=== PATIENT | male | born 1940 | race Caucasian/White ===

== ENCOUNTER → 2016-11-11 | Outpatient (CLI) | payer MEDICARE, MEDICAID ==
[~2016-11-11] MED LIST: ASPI-781 PO; ATOR10TA65 PO; DULR PR; Docusate Sodium/Ferrous Fumar PO; OMEG-135 PO; PANT40TA4 PO; URE25 PO; VITBC PO; ZOLP5TAB PO
--- NOTE | 2016-11-11 15:30 | RADRPT ---
PROCEDURE: XR right knee. CLINICAL INDICATION: Knee pain. TECHNIQUE: Three views are available for review. COMPARISON: 05/28/2015 FINDINGS: There is a constrained total knee replacement. There is no evidence of loosening of the prosthesis. There is diffuse osteopenia. No acute fracture or dislocation is seen.No osseous lesions are identif ied. The soft tissues are unremarkable . IMPRESSION: Diffuse osteopenia Unremarkable constrained total knee replacement. RPTAT: HGDB .Sampson Chappell MD, MD Date Time Electronically viewed and signed by .Sampson Chappell MD, MD on 11/11/2016 15:30 .B/
--- NOTE | 2016-11-11 21:49 | HKNOTE ---
DATE OF SERVICE: 11/11/2016 MAIN COMPLAINT: Continuing problems with the right total knee replacement. HISTORY OF MAIN COMPLAINT: The patient had a right total knee replacement, which was performed by luciano cardoza in 01/2015. The knee felt fairly good at first, but subsequently he developed symptoms that he redmond s been complaining about constantly. His present complaints are that the knee has pain on walking. The knee feels unstable at times whil e walking. This mostly occurs while getting out of a chair, getting out of a car, or going up or do wn stairs. He has no pain when he is walking. PHYSICAL EXAMINATION: GENERAL: A fit looking 76-year-old male. VITAL SIGNS: Height 6 feet 2 inches, weight 260 pounds, blood pressure 110/65, temperature 98.7. EXTREMITIES: On examination of the right knee, no external signs of infection or inflammation. The knee feels somewhat unstable, both on testing the medial and lateral collateral ligaments, but pratima cially on performing the drawer test, to test the AP stability. The knee shows marked instability on putting it through these various tests. IMAGING: Plain x-rays of the right knee obtained today at the [facility] were rev iewed. These show an absolutely perfect total knee replacement. All components are well attached t o the bone and well aligned. The patellar thickness is excellent. Patellar tracking is 100%. All components are well attached to the bone. DISCUSSION: Patient is advised that I believe the ligaments in his knee are stretched out. I showe d him on a model of the knee, that he will need to have a thicker spacer inserted in order to stabil ize the knee. I did note that examination of the knee already reveals that the knee lacks perhaps 1 0 degrees of extension, and he was warned that he may lose further extension of the knee. He will b e put in a thicker spacer. Patient is agreeable to doing the surgery, despite the possible lack of extension after surgery. My assistant construction superintendent, Carlos, spoke with him a considerable length today, and will schedule his surgery to be performed in the near future. Dictated By: CHENTE POLANCO/SOCORRO Conf#: [id number] DID#: [id number]
== END | disposition home or self-care (01) ==
LOC: HKI 14:51
DX: Z47.1 Aftercare following joint replacement surgery (principal); Z96.651 Presence of right artificial knee joint
CPT/HCPCS: 73562; G0463

== ENCOUNTER → 2017-01-12 | Outpatient (CLI) | payer MEDICARE, MEDICAID ==
[~2017-01-12] MED LIST changes: +BETH25TA39 PO; +BISA10SU75 PR; -DULR PR; +METO10TA96 PO; +OMEP20CA16 PO; -URE25 PO
--- NOTE | 2017-01-12 18:12 | HKNOTE ---
DATE OF SERVICE: 01/12/2017 The patient comes for preoperative evaluation. He is scheduled to have a revision of the right knee tibial insert on 01/13/2017. He has been cleared for surgery by Dr. Martin Rodriguez. Numerous questi ons were asked and answered. He has not given any blood for autotransfusion and understands the ris ks associated with using hospital blood. He is agreeable to using hospital blood if needed. He was given prescriptions for his postoperative pain management. Numerous questions were asked and answe red. There is no guarantee that this procedure will cure his problem, but to the best of my orthope dic knowledge and orthopedic experience, I do believe that this may solve his problem. Dictated By: CHENTE POLANCO/SOCORRO Conf#: [id number] DID#: [id number]
== END | disposition home or self-care (01) ==
LOC: HKI 13:10
DX: M25.561 Pain in right knee (principal); T84.89XA Other specified complication of internal orthopedic prosthetic devices, implants and grafts, initial encounter; Z96.651 Presence of right artificial knee joint
CPT/HCPCS: G0463

== ENCOUNTER 2017-01-13 05:28 | Inpatient (IN) | payer MEDICARE, OTHER ==
--- NOTE | 2017-01-12 12:52 | PREOPHP ---
DATE OF ADMISSION: 01/12/2017 Scheduled day of surgery is 01/13/[address] Sam Khoury. Dear Dr. Khoury: Thank you very much for allowing me to continue in the care of Mr. Cole. HISTORY OF PRESENT ILLNESS: He is a 76-year-old right-handed male status post rig ht total knee replacement who is coming in for revision of the pad in the knee replacement. Please note I am modestly handicapped by not having specifics from your office. PAST MEDICAL HISTORY: 1. Hypogonadism. 2. Gastroesophageal reflux disease. 3. Obesity. 4. Organic heart disease -- coronary artery disease -- status post PCI in 1992. 5. Lumbar disk disease with sciatica. 6. Tic douloureux. 7. Positive DANIELLE. 8. Obstructive sleep apnea. 9. History of Phuong's gangrene. 10. Status post penile prosthesis with subsequent debridement. 11. Status post urethroplasty. 12. Diverticulosis coli. 13. Internal hemorrhoids. 14. Vitreous separation. 15. Decreased hearing on the left. 16. Status post CE and IOL, right eye, 11/12/2016. 17. Status post right knee arthroscopy. 18. Status post CE and IOL, left eye. 19. Status post right inguinal hernia repair. 20. Status post right total knee replacement January 2015. ALLERGIES: HE HAS NO KNOWN MEDICAL ALLERGIES, BUT HE IS INTOLERANT OF STATINS WHICH INDUCE MYALGIAS . CURRENT MEDICATIONS: 1. Testosterone 200 mg every 3 weeks. 2. Reglan (metoclopramide) 10 mg t.i.d. 3. Omeprazole 40 mg every morning. 4. Simvastatin 10 mg daily. 5. Lipo-Flavonoid daily. 6. Fish oil 1 g daily. HABITS: He is a nonsmoker, no alcohol, no caffeine, no recreational drugs. VACCINES: He had tetanus and pneumococcal vaccine 08/08/2013. SOCIAL HISTORY: He was born in [place] and raised here. He is a [employer] and is [facility] eligible. He is and lives with his spouse. He is recently retired. FAMILY HISTORY: Positive for coronary artery disease, negative for diabetes mellitus type 2, positi ve for hypertension, positive for stroke. Negative for asthma, negative for glaucoma, negative for migraine, negative for colon cancer, negative for prostate cancer, negative for anesthesia reactions . REVIEW OF SYSTEMS: HEAD AND EYES: Fully negative. ENT: Negative. RESPIRATORY: Negative. CARDIAC: Negative. GASTROINTESTINAL: Negative. He had a negative colonoscopy 07/11/2009 and negative serologies for h epatitis B and C 10/15/2006. HEMATOLOGIC: Negative. UROLOGIC: Negative. NEUROLOGIC: Negative. MUSCULOSKELETAL: As per the dictation of Dr. Khoury. GENERAL: Without note. PHYSICAL EXAMINATION: VITAL SIGNS: At the time of physical exam, he has a height of 5 feet 11 inches, weight 233, blood p ressure 130/70, pulse 96, temperature is 98.6, respirations 16. HEENT: NC/AT. PERRL, EOMI, anicteric, fundi are without note. Tympanic membranes are without note . Oropharynx demonstrates no lesions. NECK: Supple. There is a midline trachea. There is no thyromegaly. Pulses are 2+ without bruits. RESPIRATORY: Clear to auscultation and percussion. CARDIAC: Demonstrates no JVD, regular rate and rhythm without rubs, murmurs, or gallops. ABDOMEN: Soft, nontender, active bowel sounds, no hepatosplenomegaly, no CVA tenderness, no hernias , no bruits. EXTREMITIES: Demonstrate no clubbing, cyanosis, or edema. Please see Dr. Khoury's dictation fo r the exam of the knee. NEUROLOGIC: Nonfocal. LABORATORY DATA: Sodium 140, potassium 3.6, chloride 103, bicarbonate 30, BUN 19, creatinine 0.9, r andom blood sugar postprandial 116. White count 6.5, hemoglobin 15.4, hematocrit 51.8, platelet cou nt 256. Urinalysis 1.020, pH is 5.5, dipsticks negative. Protime 11.3 with an INR of 0.95, PTT is 27 seconds. EKG demonstrates sinus rhythm at 67 with a first-degree AV block and occasional PVCs, ME interval 0. 23, QRS 0.12, QTC 0.42, and axis of negative 60 degrees. Nonspecific intraventricular conduction de lay with a left anterior superior hemiblock which is unchanged. Chest x-ray demonstrates normal car diac size and silhouette, normal bones and soft tissue, normal lungs without evidence of TB. ASSESSMENT AND PLAN: Preoperative medical consultation prior to elective revision of right total kn ee replacement. At this time, I find Mr. Cole to be an acceptable surgical candidate and concur wi th your plans to proceed with surgery. He is at average surgical risk as compared to his age-matche d peers and should do well using all standard and routine anesthesia precautions. Please note the luciano herrera issue would be concerned about is his obstructive sleep apnea. Respectfully yours, Dictated By: SINTIA GRUBER MD, JR/SOCORRO Conf#: [id number] DID#: [id number] CC: SAM KHOURY MD;*EndCC*
[2017-01-12 17:03] VITALS: BMI 30.2
[~2017-01-13] VITALS: Ht 188 cm; Wt 108.0 kg
[2017-01-13] VITALS (23 sets, daily range): BP systolic 95–174; BP diastolic 40–85; PULSE 64–87; RESP 12–23; Ht 188 cm; Wt 108.0 kg
[~2017-01-13 05:28] MED LIST changes: -METO10TA96 PO; -OMEP20CA16 PO
[2017-01-13] MEDS ORDERED: ONDANSETRON 4 MG INJ IV ONE (06:00)
[2017-01-13] MEDS ORDERED: ACETAMINOPHEN 1000MG/100ML IV 100 ML IVPB ONE (06:00)
[2017-01-13] MEDS ORDERED: oxyCODONE (CR) 10 MG TAB [oxyCONTIN] PO ONE (06:00)
[2017-01-13] MEDS ORDERED: CELECOXIB 200 MG CAP PO ONE (06:00)
[2017-01-13] MEDS ORDERED: LANSOPRAZOLE 30 MG CAP PO ONE (06:00)
[2017-01-13] MEDS ORDERED: LACTATED RINGER'S 1,000 ML IV* SCH (06:00)
[2017-01-13] MEDS ORDERED: TRANEXAMIC ACID 2,000 MG in SOD CHLORIDE 0.9% 100 ML IVPB ONE (06:00)
[2017-01-13] MEDS ORDERED: VANCOMYCIN 1 GM (PMX) 250 ML IVPB ONE (06:00)
[2017-01-13] MEDS ORDERED: DEXAMETHASONE 4 MG/ML 1 ML INJ IV ONE (06:00)
[2017-01-13] MEDS ORDERED: KNEE PAIN COCKTAIL VANCO INJ SCH ×6 (06:30)
[2017-01-13] MEDS ORDERED: OMEP20CA16 PO (06:47)
[2017-01-13] MEDS ORDERED: METO10TA96 PO (06:47)
[2017-01-13] MEDS ORDERED: HETASTARCH 6% NACL 500 ML BAG ONE (07:00)
--- NOTE | 2017-01-13 07:02 | HPN ---
Date/Time of Note Date/Time of Note DATE: 01/13/17 TIME: 07:02 Interval H&P Admission Note Pt. seen H&P reviewed: No system changes TRACY BAÑUELOS PA-C Jan 13, 2017 07:02
[2017-01-13] MEDS ORDERED: BUPIVACAINE 0.25%/EPI (SDV) 30 ML INJ ONE (07:08)
[2017-01-13] MEDS ORDERED: POLYMYXIN B 500000 UNIT INJ ONE (07:09)
[2017-01-13] MEDS ORDERED: VANCOMYCIN 1 GM INJ ONE (07:09)
[2017-01-13] MEDS ORDERED: ROPIVACAINE 0.2% 100 ML ONE (07:09)
[2017-01-13] MEDS ORDERED: TOBRAMYCIN 1.2 GM POWDER ONE (07:09)
[2017-01-13] MEDS ORDERED: METHYLENE BLUE 1% 10 ML INJ ONE (07:09)
[2017-01-13] MEDS ORDERED: PROPOFOL 100 ML ONE (07:11)
[2017-01-13] MEDS ORDERED: MIDAZOLAM 1 MG/ML 2 ML INJ ONE (07:12)
[2017-01-13] MEDS ORDERED: SOD CHLORIDE 0.9% 50 ML, TRANEXAMIC ACID 2,000 MG IRR SCH ×2 (07:30)
[2017-01-13] MEDS ORDERED: ROPIVACAINE 0.2% 20 ML VIAL ONE ×2 (07:35)
[2017-01-13] MEDS ORDERED: PHENYLephrine (100 MCG/ML) 5ML SYG ONE ×3 (07:35→08:58)
[2017-01-13] MEDS ORDERED: LABETALOL HCL 20MG INJ IV PRN (08:00)
[2017-01-13] MEDS ORDERED: MEPERIDINE 25 MG INJ IV PRN (08:00)
[2017-01-13] MEDS ORDERED: DIPHENHYDRAMINE 50 MG INJ IV PRN (08:00)
[2017-01-13] MEDS ORDERED: ALBUMIN HUMAN 5% 250 ML IV PRN (08:00)
[2017-01-13] MEDS ORDERED: hydrALAzine 20 MG INJ IV PRN (08:00)
[2017-01-13] MEDS ORDERED: HYDROmorphONE (0.2 MG/ML) 10ML SYG IV PRN ×3 (08:00)
[2017-01-13] MEDS ORDERED: ONDANSETRON 4 MG INJ IV PRN (08:00)
[2017-01-13] MEDS ORDERED: EPHEDrine SULFATE 50 MG/5 ML SYG IV PRN (08:00)
[2017-01-13] MEDS ORDERED: morphine (1 MG/ML) 10ML SYRINGE IV PRN ×3 (08:00)
[2017-01-13] MEDS ORDERED: ROPIVACAINE 0.5 % 30 ML VIAL ONE (08:03)
[2017-01-13] MEDS ORDERED: BACITRACIN 50000 UNITS INJ IRR ONE (08:35)
[2017-01-13] MEDS ORDERED: ROPIVACAINE 0.2% 100ML BAG INJ ONE (09:05)
[2017-01-13] MEDS ORDERED: DEXAMETHASONE 4 MG/ML 1 ML INJ ONE (09:17)
[2017-01-13] MEDS ORDERED: ONDANSETRON 4 MG INJ ONE (09:17)
[2017-01-13] MEDS ORDERED: FAMOTIDINE 20 MG INJ ONE (09:17)
[2017-01-13] MEDS ORDERED: METOCLOPRAMIDE 10 MG INJ ONE (09:17)
[2017-01-13] MEDS ORDERED: HYDROmorphONE 0.2 MG/ML PCA IV PRN (10:00)
[2017-01-13] MEDS ORDERED: oxyCODONE 5 MG TAB PO PRN (10:00)
[2017-01-13] MEDS ORDERED: BISACODYL 10 MG SUPP PR PRN (10:00)
[2017-01-13] MEDS ORDERED: MEPERIDINE 10 MG/ML 30 ML PCA IV PRN (10:00)
[2017-01-13] MEDS ORDERED: SENNA/DOCUSATE NA (8.6MG/50MG) TAB PO PRN (10:00)
[2017-01-13] MEDS ORDERED: COUMADIN NOTE XX SCH (10:00)
[2017-01-13] MEDS ORDERED: BETHANECHOL 25 MG TAB PO PRN (10:00)
[2017-01-13] MEDS ORDERED: NA PHOSPHATE/BIPHOS 133 ML ENEMA PR PRN (10:00)
[2017-01-13] MEDS ORDERED: DIPHENHYDRAMINE 50 MG INJ IM PRN (10:00)
[2017-01-13] MEDS ORDERED: NALOXONE (0.4 MG/ML) INJ IV PRN (10:00)
[2017-01-13] MEDS ORDERED: MAGNESIUM HYDROXIDE 30ML CUP PO PRN (10:00)
[2017-01-13] MEDS: ONDANSETRON 4 MG INJ IV SCH ×3 (10:00→21:08)
[2017-01-13] MEDS ORDERED: ASPIRIN (EC) 325 MG TAB PO ONE (10:30)
[2017-01-13] MEDS ORDERED: DOCUSATE SODIUM 100 MG CAP PO ONE (10:30)
[2017-01-13 10:33] LABS: SYNOVIAL FLUID CLARITY Cloudy; SYNOVIAL FLUID COLOR Light Yellow; SYNOVIAL FLUID TYPE Right Knee
[2017-01-13 10:34] LABS: SYNOVIAL FLUID WBC 735 /cmm (0-150)
[2017-01-13] MEDS: ACETAMINOPHEN 1000MG/100ML IV 100 ML IVPB SCH ×2 (11:00→19:00)
--- NOTE | 2017-01-13 11:33 | OPR ---
DATE OF OPERATION: 01/13/2017 PREOPERATIVE DIAGNOSIS: Unstable right knee following total knee replacement. POSTOPERATIVE DIAGNOSIS: Unstable right knee following total knee replacement. PROCEDURE PERFORMED: 1. Removal of tibial bearing from right knee. 2. Installation of thicker tibial bearing right total knee replacement. SURGEON: Sam Khoury MD SPORTS ATTORNEY: OMAR Nielsen FINDINGS AT SURGERY: There was no sign of infection. Fluid was taken from the knee and sent for ce ll count, culture and sensitivity. All 3 components were carefully tested to see if there was any s ign of loosening, no sign of loosening could be demonstrated. There is no inflammation in the knee. Before prepping and draping leg, the knee was again tested for stability. There was found to be exc essive laxity on varus, valgus stressing. DESCRIPTION OF PROCEDURE: Under epidural plus general anesthetic, the right leg was prepared and dr aped in the usual sterile fashion. A tourniquet around the right thigh was inflated to 250 mmHg. A n incision was made in the line of the previous surgical scar. The incision was deepened through th e deep fascia to expose the medial capsule. The medial capsule was incised. A vastus split was per formed proximally and the patella was mobilized. A medial sleeve consisting of capsule and pes tend ons was now elevated from the proximal tibia. A periosteal sleeve was elevated. The tissue was rat her fragile and a slightly thicker periosteal element than unusual was elevated. The patella was mobilized by a partial lateral release (from inside out). Soft tissues around the knee were now injected with 0.25% Marcaine with adrenalin. The tourniquet was then deflated about 7 minutes later. The tourniquet was not used for the remaining part of the operation. Once the proximal tibia had been mobilized sufficiently, the plastic tibial insert was removed by cu tting it into thirds. The trial 12.5 mm insert was installed (the one being removed was 10 mm in [facility]). The 12 mm insert seemed to confer the stability that I felt was necessary for his knee. Soft tissues around the knee were now injected with a mixture of Naropin, Toradol, morphine and clon idine. Bleeding points were cauterized with the tourniquet down. The permanent plastic insert was now installed. The wound was now closed using interrupted Vicryl in all the deep tissues, except for stress points where FiberWire was used. Superficial and deep Hemovac drains were placed. The usual sterile dress ings were now applied. The patient returned to recovery room in stable condition. There were no pr oblems or complications as far as is known. IMPLANT INFORMATION: Tibial insert 12.5 mm large plus mobile bearing posterior stabilized insert. Dictated By: SAM POLANCO/SOCORRO Conf#: [id number] DID#: [id number]
[2017-01-13] MEDS: DEXTROSE 5%-LR 1,000 ML IV SCH ×2 (11:45→22:23)
[2017-01-13] MEDS ORDERED: SOD CHLORIDE 0.9% IVPB ONE ×2 (13:00→16:00)
[2017-01-13] MEDS ORDERED: TRANEXAMIC ACID IVPB ONE ×2 (13:00→16:00)
[2017-01-13 13:13] LABS: LYMPHOCYTES,SYNOVIAL FLUID 23
[2017-01-13 13:17] LABS: NEUTROPHILS,SYNOVIAL FLUID 12 % (0-25)
[2017-01-13] MEDS ORDERED: BACITRACIN 50000 UNITS INJ ONE (15:08)
--- NOTE | 2017-01-13 15:16 | RADRPT ---
PROCEDURE: XR Knee. CLINICAL INDICATION: Status post right knee replacement TECHNIQUE: AP and lateral view of the right knee were obtained. The images reviewed on a PACS wor kstation. COMPARISON: November 11, 2016 FINDINGS: Complete right knee replacement is identified. Prosthetic components are in appropriate position an d alignment. No fractures or destructive lesions are observed. Surgical drain is seen in the knee. Soft tissue air is procedural in nature. IMPRESSION: Status post right knee replacement. Prosthetic components are in appropriate position and alignment . RPTAT: AA .Alejandro Miller MD, Date Time Electronically viewed and signed by .Alejandro Miller MD, on 01/13/2017 15:16 .P/
--- NOTE | 2017-01-13 17:36 | CONS ---
Date/Time of Note Date/Time of Note DATE: 01/13/17 TIME: 17:21 Assessment/Plan Assessment/Plan Problems: (1) Presence of coronary angioplasty implant and graft Status: Chronic Comment: Continue statin. Monitor cardiac status (2) Hyperlipidemia Status: Chronic Comment: Cont. statin (3) Gastro-esophageal reflux disease without esophagitis Status: Chronic Comment: Cont. PPI (4) Aftercare following right knee joint replacement surgery Status: Acute Comment: Defer to primary team for PT and pain management. Will monitor for medical complications or issues should they arise. Consultation Date/Type/Reason Admit Date/Time Jan 13, 2017 at 05:28 Date of Consultation: Jan 13, 2017 Type of Consultation: Medicine Reason for Consultation Medical management Referring Provider: CHENTE GILES MD Hx of Present Illness 76 y/o C M w/ h/o CAD, Phuong's gangrene, hypogonadism, GERD, JONATHAN, Meniere's dz w/ SNHL, hyperlipidemia, status post right total knee replacement who is coming in for revision of the pad in the knee replacement. Now POD#0. Constitutional: improved, no complaints Eyes: no complaints ENT: no complaints Respiratory: no complaints Cardiovascular: no complaints Gastrointestinal: no complaints Genitourinary: no complaints Musculoskeletal: bone/joint pain (mild in R knee) Neurologic: no complaints Past Medical History Medical History: coronary artery disease, GERD, high cholesterol, other ( Phuong's gangrene, hypogonadism, JONATHAN, Meniere's dz w/ SNHL) Past Surgical History Past Surgical Hx: other (Penile prosthesis, urethroplasty, R knee arthroscopy, R knee arthroplasty, cataracts, R inguinal hernia repair, multiple debridements for Phuong's gangrene) Family History Significant Family History: heart disease, hypertension, vascular disease ( stroke) Social History He was born in [place] and raised here. He is a [employer] and is [facility] eligible. He is and lives with his spouse. He is recently retired Alcohol Use: none Smoking Status: Never smoker Drug Use: none Exam/Review of Systems Vital Signs Vitals Vital Signs Date Time Temp Pulse Resp B/P Pulse Ox O2 Delivery O2 Flow Rate FiO2 01/13/17 15:15 97.6 75 18 120/66 97 Room Air 01/13/17 10:20 3.0 Exam Constitutional: alert, obese, oriented Psych: nl mood/affect, no complaints Eyes: EOMI, PERRL, nl conjunctiva, nl lids, nl sclera ENMT: mucosa pink and moist, nl external ears & nose Neck: non-tender, supple, No bruits, No masses, No thyromegaly Respiratory: clear to auscultation, normal air movement Cardiovascular: nl pulses, regular rate and rhythm, No edema, No murmurs/extra sounds, No rub Gastrointestinal: bowel sounds, nl liver, spleen, non-tender, soft, No mass, No rebound or guarding Musculoskeletal: nl extremities to inspection Extremities: normal pulses, No clubbing, No cyanosis, No edema Neurological: KNITTING SUPERVISOR II-XII intact, nl mental status, nl speech, nl strength Results Results 24 hrs Laboratory Tests Test 01/13/17 08:15 Synovial Fluid Source Right Knee Synovial Fluid Color Light Yellow Synovial Fluid Appearance Cloudy Synovial Fluid Volume 5.0 H Synovial Fluid WBC 735 H Synovial Fluid Neutrophils 12 Synovial Fluid Lymphocytes 23 Synovial Fluid Monocytes 43 Synovial Fluid Other Cells 22 Synovial Fluid Crystals No crystals seen Medications Medications Current Medications Dextrose/Lactated Ringer's (D5-Lr) 1,000 ml @ 80 mls/hr [id number] IV Last administered on 01/13/17t 11:45; Admin Dose 80 MLS/HR; Start 01/13/17 at 09:53 Hydromorphone HCl (Dilaudid MAGAZINE WORKER) Q4PCA PRN IV SEVERE PAIN 8-10; Start at 10:00; Stop 01/14/17 at 09:59 Meperidine HCl (Demerol MAGAZINE WORKER) Q4PCA PRN IV SEVERE PAIN 8-10; Start 01/13/17 at 10:00; Stop 01/14/17 at 09:59 Oxycodone HCl (Roxicodone) 20 mg Q3H PRN PO PAIN LEVEL 8-10; Start 01/14/17 at 09:00 Oxycodone HCl (Roxicodone) 10 mg Q3H PRN PO PAIN LEVEL 4-7; Start 01/13/17 at 10:00 Oxycodone HCl 5 mg 5 mg Q3H PRN PO PAIN LEVEL 1-3; Start 01/13/17 at 10:00 Acetaminophen (Ofirmev 1000mg/ 100ml Iv) 100 ml @ 400 mls/hr Q8H IVPB ; Start 01/13/17 at 11:00; Stop 01/15/17 at 03:14 Zolpidem Tartrate (Ambien) 5 mg HS PRN PO INSOMNIA; Start 01/13/17 at 10:00 Ondansetron HCl 4 mg 4 mg Q6H IV ; Start 01/13/17 at 10:00; Stop 01/14/17 at 04: 01 Vancomycin HCl (Vancocin) 250 ml @ 125 mls/hr Q12H IVPB ; Start 01/13/17 at 18: 00; Stop 01/14/17 at 07:59 Miscellaneous Information (Note) NOTE XX ; Start 01/13/17 at 10:00 Aspirin (Ecotrin) 325 mg BID PO ; Start 01/14/17 at 09:00 Celecoxib (Celebrex) 200 mg BID PO ; Start 01/14/17 at 09:00 Dexamethasone (Decadron) 4 mg DAILY@07 IV ; Start 01/14/17 at 07:00; Stop at 06:59 Pantoprazole (Protonix Tab) 40 mg DAILY@06 PO ; Start 01/15/17 at 06:00 Docusate Sodium/ Ferrous Fumarate (Char-Sequels) 1 tab BID PO ; Start 01/14/17 at 09:00 Docusate Sodium (Colace) 200 mg BID PO ; Start 01/14/17 at 09:00; Stop 01/17/17 at 08:59 Simethicone (Mylicon) 80 mg TID PRN PO DISTENSION/GAS/BLOATING; Start 01/13/17 at 10:00 Senna/Docusate Sodium (Senokot-S) 2 tab BID PRN PO CONSTIPATION; Start at 10:00 Magnesium Hydroxide (Milk Of Mag) 30 ml HS PRN PO CONSTIPATION; Start 01/13/17 at 10:00 Bisacodyl (Dulcolax Supp) 10 mg DAILY PRN SC CONSTIPATION; Start 01/13/17 at 10 :00 Sodium Biphosphate/ Sodium Phosphate (Fleet Enema) 133 ml DAILY PRN SC CONSTIPATION; Start 01/13/17 at 10:00 Diphenhydramine HCl (Benadryl) 25 mg Q4H PRN IM ITCHING OR RASH; Start at 10:00 Ketorolac Tromethamine (Toradol) 15 mg DAILY@06 PRN INJ ADMINSTER BY SURGEON ONLY; Start 01/14/17 at 06:00; Stop 01/18/17 at 05:59 Bupivacaine HCl/ Epinephrine Bitart (Marcaine 0.25%/ Epi (Sdv) 30 ml) 20 ml DAILY@06 PRN INJ ADMINSTER BY SURGEON ONLY; Start 01/14/17 at 06:00; Stop 01/18 at 05:59 Naloxone HCl (Narcan) 0.2 mg Q2M PRN IV DECREASED REPIRATORY RATE; Start at 10:00 LALO WHYTE MD Jan 13, 2017 17:36
[2017-01-13] MEDS: VANCOMYCIN 1 GM (PMX) 250 ML IVPB SCH (18:00)
[2017-01-13] MEDS ORDERED: LORAZEPAM 2 MG INJ IV PRN (19:30)
[2017-01-13] MEDS ORDERED: ATORVASTATIN 10 MG TAB PO SCH (21:00)
[2017-01-13] MEDS: FISH OIL 1,000 MG CAP PO SCH (21:00)
[2017-01-13] MEDS: METOCLOPRAMIDE 10 MG TAB PO SCH (21:00)
[2017-01-13] MEDS: ZOLPIDEM 5 MG TAB PO PRN (22:24)
[2017-01-14] VITALS (9 sets, daily range): BP systolic 108–136; BP diastolic 51–68; PULSE 65–81; RESP 17–20
[2017-01-14] MEDS: ACETAMINOPHEN 1000MG/100ML IV 100 ML IVPB SCH ×4 (03:00→21:35)
[2017-01-14] MEDS: ONDANSETRON 4 MG INJ IV SCH (03:03)
[2017-01-14] MEDS ORDERED: BUPIVACAINE 0.25%/EPI (SDV) 30 ML INJ INJ PRN (06:00)
[2017-01-14] MEDS ORDERED: KETOROLAC 15 MG INJ INJ PRN (06:00)
[2017-01-14] MEDS: VANCOMYCIN 1 GM (PMX) 250 ML IVPB SCH (06:35)
[2017-01-14] MEDS: DEXAMETHASONE 4 MG/ML 1 ML INJ IV SCH (06:36)
[2017-01-14] MEDS: PANTOPRAZOLE (EC) 40 MG TAB PO SCH (06:36)
[2017-01-14 07:44] LABS: ADD SCAN DIFF NO
--- NOTE | 2017-01-14 07:46 | PN ---
Date/Time of Note Date/Time of Note DATE: 01/14/17 TIME: 07:37 Assessment/Plan VTE Prophylaxis VTE Prophylaxis Intervention: ambulation, anti-embolic stocking, SCD's, other ( ASA 325mg) Lines/Catheters IV Catheter Type (from Nrsg): Peripheral IV Assessment/Plan Assessment/Plan -Hemovac Removed Today. 160cc output -Pain Cocktail Given -Pain Meds as needed -Dress change performed today -OOB with PT -ASA/SCDs for DVT Prophylaxis -Continue monitoring with Internal Medicine -Patient Stable Dr. Khoury called to double check patient statement of going home today. Dr. Khoury confirms that patient will stay overnight for ongoing monitoring. Patient very upset and wants to go home as he states he has no complaints. He is refusing to stay overnight. We will consult with Dr. Khoury and continue developing plan of action as he has become a bit difficult upon hearing the news of overnight stay. Dr. Khoury has seen the patient and patient is aware and is compliant that he will be staying in the hospital for monitoring with spinneret cleaner and tool and die maker/designer. Subjective 24 Hr Interval Summary 76y/o male POD#1 s/p R TKA revision with replacement polyethylene liner. In regards to the R knee, no pain complaints or issues. OOB with FWW and able to ambulate down the hallway. No calf pain. Patient had chest pain complaints. Was initially sched to xfer to ICU but patient refused until Troponin came back. Troponin were neg and patient stayed on 4 [address]. Denies any complications since. Patient is adamant in going home today as he "feels great" with no chest or knee pain. Pain Control: well controlled Exam/Review of Systems Vital Signs Vitals Vital Signs Date Time Temp Pulse Resp B/P Pulse Ox O2 Delivery O2 Flow Rate FiO2 01/14/17 12:50 77 01/14/17 10:59 98.2 18 136/60 95 01/14/17 00:10 Room Air 01/13/17 10:20 3.0 Intake and Output 01/13/17 01/13/17 01/14/17 14:59 22:59 06:59 Intake Total 1030.8 ml 1660.8 ml 550 ml Output Total 70 ml 100 ml 100 ml Balance 960.8 ml 1560.8 ml 450 ml Exam Free Text/Dictation -Hemovac: Intact 160cc output -Pain Cocktail Drains: Intact -Incision: Clean, Dry and Intact without any redness or drainage -5/5 Tibialis Anterior, EHL Gastrocnemius/Soleus and Peroneals -ROM is 5-100 degrees ext/flex -Normal Sensation -Palpable DP/PT, Capillary Refill <2 secs -No Distal Edema -Negative Keron Sign/No calf pain -Toes Freely Movable Results Result Diagram: 01/14/17 0714 TRACY BAÑUELOS PA-C Jan 14, 2017 07:46
--- NOTE | 2017-01-14 07:49 | PDOCDIS ---
Discharge Instructions DIAGNOSIS Discharge Diagnosis: S/P right Total Knee Revision with replacement liner. CONDITION Patient Condition: Stable HOME CARE INSTRUCTIONS: Diet Instructions: Regular ACTIVITY: Activity Restrictions: Slowly Increase Activity Rest between Activity Avoid heavy lifting No Sexual Activity Do not Drive Do not operate Machinery Avoid Heavy Housework Weight Bearing (as tolerated. May use front wheeled walker if needed until you feel comfortable and confident with independent ambulation.) Bathing Restrictions: Shower (with tegaderm pad until janelle are removed. May removed tegaderm after shower and place new pad the next day before shower.) FOLLOW UP/APPOINTMENTS Appointments 02/03/17 at 1:45PM TRACY BAÑUELOS PA-C Jan 14, 2017 07:49
[2017-01-14 07:52] LABS: BASOPHILS % 0.1 % (0.0-2.0); HEMATOCRIT 41.9 % (42.0-52.0); HEMOGLOBIN 13.3 g/dl (14.0-18.0); LYMPHOCYTES # 1.2 10^3/ul (0.8-2.9); LYMPHOCYTES % 8.5 % (15.0-51.0); MEAN CORPUSCULAR HEMOGLOBIN 26.1 pg (29.0-33.0); MEAN CORPUSCULAR HGB CONC 31.7 g/dl (32.0-37.0); MEAN CORPUSCULAR VOLUME 82.3 fl (82.0-101.0); MEAN PLATELET VOLUME 10.4 fl (7.4-10.4); MONOCYTES % 7.1 % (0.0-11.0); NEUTROPHIL # 11.4 10^3/ul (1.6-7.5); NEUTROPHILS % 83.9 % (39.0-77.0); PLATELET COUNT 226 10^3/UL (140-415); RED BLOOD COUNT 5.09 10^6/ul (4.70-6.10); RED CELL DISTRIBUTION WIDTH 16.7 % (11.5-14.5); WHITE BLOOD COUNT 13.6 10^3/ul (4.8-10.8)
[2017-01-14] MEDS: FERROUS FUMARATE (SR) TAB PO SCH ×2 (08:33→21:00)
[2017-01-14] MEDS: METOCLOPRAMIDE 10 MG TAB PO SCH ×3 (08:33→21:26)
[2017-01-14] MEDS: DOCUSATE SODIUM 100 MG CAP PO SCH ×2 (08:33→21:26)
[2017-01-14] MEDS ORDERED: oxyCODONE 5 MG TAB PO PRN (09:00)
[2017-01-14] MEDS ORDERED: CELECOXIB 200 MG CAP PO SCH (09:00)
[2017-01-14] MEDS ORDERED: ASPIRIN (EC) 325 MG TAB PO SCH (09:00)
[2017-01-14] MEDS: FISH OIL 1,000 MG CAP PO SCH ×2 (09:14→21:29)
--- NOTE | 2017-01-14 12:02 | OPPN ---
Date/Time of Note Date/Time of Note DATE: 01/14/17 TIME: 11:47 Anesthesia Follow up Anesthesia Follow up Last documented vital signs Vital Signs Date Time Temp Pulse Resp B/P Pulse Ox O2 Delivery O2 Flow Rate FiO2 01/14/17 10:59 98.2 82 18 136/60 95 01/14/17 00:10 Room Air 01/13/17 10:20 3.0 Respiratory function: WNL Cardiovascular function: WNL Comments POD#1 Hx of Present Illness 76 y/o C M w/ h/o CAD, Phuong's gangrene, hypogonadism, GERD, JONATHAN, Meniere's dz w/ SNHL, hyperlipidemia, status post right total knee replacement who is coming in for revision of the pad in the knee replacement. Now POD#1 Constitutional: improved, no complaints Eyes: no complaints ENT: no complaints Respiratory: no complaints Cardiovascular: no complaints Gastrointestinal: no complaints Genitourinary: no complaints Musculoskeletal: bone/joint pain (mild in R knee) Neurologic: no complaints Initial Consultation Hx Past Medical History Medical History: coronary artery disease, GERD, high cholesterol, other ( Phuong's gangrene, hypogonadism, JONATHAN, Meniere's dz w/ SNHL) Past Surgical History Past Surgical Hx: other (Penile prosthesis, urethroplasty, R knee arthroscopy, R knee arthroplasty, cataracts, R inguinal hernia repair, multiple debridements for Phuong's gangrene) Family History Significant Family History: heart disease, hypertension, vascular disease ( stroke) Social History He was born in [place] and raised here. He is a [employer] and is [employer] eligible. He is and lives with his spouse. He is recently retired Alcohol Use: none Smoking Status: Never smoker Drug Use: none S/P Right Total Knee Revision, Epidural anesthesia and General Anesthesia was used intraoperatively, patient did well intraoperatively without any issues. Recovery was smooth as well, Epidural catheter was removed post-op in the OR, catheter site was intact and catheter tip was intact. Later in the afternoon he had complained of chest pain and cardiac work up was ordered and internal medicine was consulted to follow up, due to hx of CAD and s /p Angioplasty and stent placement and history of sleep apnea and obesity patient is high risk for cardiac event. Vital signs are stable and patient's chest pain was resolved. Patient will be followed up by the primary team. GHADA BOLES MD Jan 14, 2017 12:02
[2017-01-14] MEDS ORDERED: NITROGLYCERIN (SL) 0.4 MG TAB SL PRN (15:00)
--- NOTE | 2017-01-14 15:11 | QN ---
Documentation Comment Contacted by Dr. Newton regarding Mr. Wellington Cole regarding switching ASA to Lovenox per his refrigeration manager Dr. Perera request. Called Dr. Khoury and he confirms that patient may stop ASA and switch to Lovenox. Dr. Newton made aware and he will be contacting refrigeration manager Dr. Perera. TRACY BAÑUELOS PA-C Jan 14, 2017 15:11
--- NOTE | 2017-01-14 15:23 | CONS ---
Date/Time of Note Date/Time of Note DATE: 01/14/17 TIME: 15:14 Assessment/Plan Assessment/Plan Problems: (1) NSTEMI (non-ST elevated myocardial infarction) Status: Acute Comment: Move to telemetry monitoring and stat cardiology consultation. All of next actions should be as per cardiology recommendations. (2) Aftercare following right knee joint replacement surgery Status: Acute Comment: Was doing well POD#1. However, obviously NSTEMI needs to be addressed now as primary issue. Will d/w ortho when making medical decisions so as not to be putting knee surgery in jeopardy Consultation Date/Type/Reason Admit Date/Time Jan 13, 2017 at 05:28 Initial Consult Date 01/13/17 Type of Consultation: Medicine Reason for Consultation Medical management Referring Provider: CHENTE GILES MD 24 HR Interval Summary Free Text/Dictation Pt. reports in [facility] until last night after dinner when he developed acute chest/ epigastric pain, like heartburn. Non-radiating, no SOB, no arm or jaw pain. No sweating or palpitations. Pt. reports pain was increasing in intensity. Had (-) 12-lead EKG. Had (-) troponin. Got TUMs and a repeat 20 minutes later. After that got 1 Gas-X and symptoms completely resolved. Today feels well w/o complaints. Today troponin 6-7. Constitutional: improved, no complaints Detailed Summary Respiratory: no complaints Cardiovascular: chest pain Gastrointestinal: pain Genitourinary: no complaints Musculoskeletal: no complaints Neurologic: no complaints Exam/Review of Systems Vital Signs Vitals VS - Last 72 Hours, by Label Date Time Temp Pulse Resp B/P Pulse Ox O2 Delivery O2 Flow Rate FiO2 01/14/17 12:50 77 01/14/17 10:59 98.2 82 18 136/60 95 01/14/17 10:46 81 01/14/17 07:56 97.4 75 20 126/62 94 01/14/17 00:10 98.0 81 17 134/68 96 Room Air 01/13/17 20:06 98.5 104 22 174/85 97 01/13/17 15:15 97.6 75 18 120/66 97 Room Air 01/13/17 14:15 97.6 77 18 123/65 97 Room Air 01/13/17 13:45 97.6 81 18 118/62 97 Room Air 01/13/17 13:15 97.6 75 18 123/58 97 Room Air 01/13/17 13:00 97.6 75 18 118/58 97 Room Air 01/13/17 12:45 97.6 80 18 120/58 95 Room Air 01/13/17 12:30 97.6 87 18 127/66 94 Room Air 01/13/17 12:11 01/13/17 10:55 74 15 95/44 92 Room Air 01/13/17 10:52 76 19 96/44 93 Room Air 01/13/17 10:47 76 12 110/46 91 Room Air 01/13/17 10:42 80 15 110/40 92 Room Air 01/13/17 10:40 78 19 110/ 92 Room Air 01/13/17 10:35 80 23 110/59 95 Room Air 01/13/17 10:30 78 15 121/57 95 Room Air 01/13/17 10:25 74 16 119/61 95 Room Air 01/13/17 10:20 70 13 106/57 93 Nasal Cannula 3.0 01/13/17 10:15 Nasal Cannula 2.0 01/13/17 10:15 72 13 107/54 93 Nasal Cannula 3.0 01/13/17 10:10 72 15 102/51 93 Nasal Cannula 3.0 01/13/17 10:05 70 13 101/53 96 Nasal Cannula 3.0 01/13/17 10:02 98.9 01/13/17 10:00 98.0 70 13 117/51 95 Nasal Cannula 3.0 01/13/17 06:10 98.5 64 18 139/65 94 Room Air Vital Signs Date Time Temp Pulse Resp B/P Pulse Ox O2 Delivery O2 Flow Rate FiO2 01/14/17 12:50 77 01/14/17 10:59 98.2 18 136/60 95 01/14/17 00:10 Room Air 01/13/17 10:20 3.0 Intake and Output 01/13/17 01/13/17 01/14/17 15:00 23:00 07:00 Intake Total 1030.8 ml 1660.8 ml 550 ml Output Total 70 ml 100 ml 100 ml Balance 960.8 ml 1560.8 ml 450 ml Exam Constitutional: alert, obese, oriented Psych: nl mood/affect, no complaints Respiratory: clear to auscultation, normal air movement Cardiovascular: nl pulses, regular rate and rhythm, No edema, No murmurs/extra sounds, No rub Gastrointestinal: bowel sounds, nl liver, spleen, non-tender, soft, No mass, No rebound or guarding Musculoskeletal: No nl extremities to inspection (RLE wrapped) Extremities: normal pulses, No clubbing, No cyanosis, No edema Neurological: CLOTH CALENDER II-XII intact, nl mental status, nl speech, nl strength Results Result Diagram: 01/14/17 0714 Results 24 hrs Laboratory Tests Test 01/13/17 19:15 01/14/17 07:14 01/14/17 08:35 Troponin I < 0.012 6.600 *H 7.770 *H White Blood Count 13.6 #H Red Blood Count 5.09 Hemoglobin 13.3 L Hematocrit 41.9 L Mean Corpuscular Volume 82.3 Mean Corpuscular Hemoglobin 26.1 L Mean Corpuscular Hemoglobin Concent 31.7 L Red Cell Distribution Width 16.7 H Platelet Count 226 Mean Platelet Volume 10.4 # Neutrophils % 83.9 H Lymphocytes % 8.5 L Monocytes % 7.1 Eosinophils % 0.0 Basophils % 0.1 Nucleated Red Blood Cells % 0.0 Neutrophils # 11.4 H Lymphocytes # 1.2 Monocytes # 1.0 H Eosinophils # 0.0 Basophils # 0.0 Nucleated Red Blood Cells # 0.0 Medications Medications Current Medications Oxycodone HCl (Roxicodone) 20 mg Q3H PRN PO PAIN LEVEL 8-10; Start 01/14/17 at 09:00 Oxycodone HCl (Roxicodone) 10 mg Q3H PRN PO PAIN LEVEL 4-7; Start 01/13/17 at 10:00 Oxycodone HCl 5 mg 5 mg Q3H PRN PO PAIN LEVEL 1-3; Start 01/13/17 at 10:00 Acetaminophen (Ofirmev 1000mg/ 100ml Iv) 100 ml @ 400 mls/hr Q8H IVPB ; Start 01/13/17 at 11:00; Stop 01/15/17 at 03:14 Zolpidem Tartrate (Ambien) 5 mg HS PRN PO INSOMNIA Last administered on t 22:24; Admin Dose 5 MG; Start 01/13/17 at 10:00 Miscellaneous Information (Note) NOTE XX ; Start 01/13/17 at 10:00 Aspirin (Ecotrin) 325 mg BID PO Last administered on 01/14/17 08:33; Admin Dose 325 MG; Start 01/14/17 at 09:00 Celecoxib (Celebrex) 200 mg BID PO Last administered on 01/14/17 08:33; Admin Dose 200 MG; Start 01/14/17 at 09:00; Status Future Hold Dexamethasone (Decadron) 4 mg DAILY@07 IV Last administered on 01/14/17 06:36 ; Admin Dose 4 MG; Start 01/14/17 at 07:00; Stop 01/17/17 at 06:59 Docusate Sodium/ Ferrous Fumarate (Char-Sequels) 1 tab BID PO Last administered on 01/14/17 08:33; Admin Dose 1 TAB; Start 01/14/17 at 09:00 Docusate Sodium (Colace) 200 mg BID PO Last administered on 01/14/17 08:33; Admin Dose 200 MG; Start 01/14/17 at 09:00; Stop 01/17/17 at 08:59 Simethicone (Mylicon) 80 mg TID PRN PO DISTENSION/GAS/BLOATING Last administered on 01/13/17 22:24; Admin Dose 80 MG; Start 01/13/17 at 10:00 Senna/Docusate Sodium (Senokot-S) 2 tab BID PRN PO CONSTIPATION; Start at 10:00 Magnesium Hydroxide (Milk Of Mag) 30 ml HS PRN PO CONSTIPATION; Start 01/13/17 at 10:00 Bisacodyl (Dulcolax Supp) [address] CONSTIPATION; Start 01/13/17 at 10 :00 Sodium Biphosphate/ Sodium Phosphate (Fleet Enema) [address] CONSTIPATION; Start 01/13/17 at 10:00 Diphenhydramine HCl (Benadryl) 25 mg Q4H PRN IM ITCHING OR RASH; Start at 10:00 Ketorolac Tromethamine (Toradol) 15 mg DAILY@06 PRN INJ ADMINSTER BY SURGEON ONLY; Start 01/14/17 at 06:00; Stop 01/18/17 at 05:59 Bupivacaine HCl/ Epinephrine Bitart (Marcaine 0.25%/ Epi (Sdv) 30 ml) 20 ml DAILY@06 PRN INJ ADMINSTER BY SURGEON ONLY; Start 01/14/17 at 06:00; Stop 01/18 at 05:59 Naloxone HCl (Narcan) 0.2 mg Q2M PRN IV DECREASED REPIRATORY RATE; Start at 10:00 Fish Oil (Fish Oil) 2,000 mg BID PO Last administered on 01/14/17 09:14; Admin Dose 2,000 MG; Start 01/13/17 at 21:00 Metoclopramide HCl (Reglan) 10 mg TID PO Last administered on 01/14/17 08:33; Admin Dose 10 MG; Start 01/13/17 at 21:00 Pantoprazole (Protonix Tab) 40 mg DAILY@06 PO Last administered on 01/14/17 06 :36; Admin Dose 40 MG; Start 01/14/17 at 06:00 Lorazepam (Ativan) 0.5 mg Q6H PRN IV ANXIETY; Start 01/13/17 at 19:30 Atorvastatin Calcium (Lipitor) 40 mg HS PO ; Start 01/14/17 at 21:00 Metoprolol Tartrate (Lopressor) 25 mg BID PO ; Start 01/14/17 at 15:00 Nitroglycerin (Nitroglycerin (Sl Tab) 0.4 Mg) 1 tab Q5M PRN SL ANGINA; Start at 15:00 LALO WHYTE MD Jan 14, 2017 15:22
--- NOTE | 2017-01-14 15:35 | CONS ---
DATE OF ADMISSION: 01/13/2017 DATE OF CONSULTATION: 01/14/2017 REASON FOR CONSULTATION: Non-ST elevation myocardial infarction. REQUESTING PHYSICIAN: Dr. Newton HISTORY OF PRESENT ILLNESS: Mr. Cole is a very pleasant 73-year-old male with a history of prior P TCA alone in 1992, prior total right knee replacement in January 2015, prior inguinal hernia repair, div erticulosis, history of [place] gangrene, obstructive sleep apnea, chronic back pain, gastroesophag eal reflux disease, and hypogonadism who initially presented on 01/12/2017 for revision of the pad i n the patient's knee replacement on the right. The patient underwent surgery on 01/13/2017. Overni t, after surgery on 01/13/2017, the patient states that he had chest pain described as heartburn a nd had decreased appetite. The patient states he took Tums with some relief and then it finally com pletely subsided. During this time, the patient had an EKG done revealing sinus tachycardia at a ra te of 101, left axis deviation, IVCD, septal Q's, lateral T-wave flattening. No significant change from prior. Additionally, he had initial troponin return negative. In the morning, the patient had a repeat troponin checked now returning at 6.6 and a followup thereafter returning at 7.7. Given t hese findings, cardiology consult has been requested. The patient's electrocardiogram from today at 9:25 revealed sinus rhythm, first-degree AV block, left axis deviation, IVCD, septal Q's, lateral T -wave flattening. No significant change from prior night. The patient, at this time, denies ongoin g chest pain or shortness of breath. PAST MEDICAL HISTORY: As above in HPI. MEDICATIONS CURRENTLY IN HOSPITAL: 1. Oxycodone. 2. Aspirin 325 mg daily. 3. Celebrex 200 mg p.o. b.i.d. 4. Colace 200 mg p.o. b.i.d. 5. Decadron 4 mg IV daily. 6. Tylenol p.r.n. 7. Protonix 40 mg daily. 8. Lipitor 10 mg at bedtime. 9. Fish oil 2 grams b.i.d. 10. Reglan p.r.n. 11. Ativan p.r.n. 12. Tylenol p.r.n. 13. Ambien p.r.n. 14. Simethicone p.r.n. 15. Senokot. 15. Benadryl p.r.n. ALLERGIES: 1. KEFLEX. 2. NEURONTIN. SOCIAL HISTORY: No tobacco, social ETOH, no illicit drug use. FAMILY HISTORY: No history of sudden cardiac or early CAD. REVIEW OF SYSTEMS: As above in HPI. CONSTITUTIONAL: No fevers, chills. PULMONARY: No current shortness of breath. CARDIOVASCULAR: No current chest pain. GASTROINTESTINAL: No vomiting. GENITOURINARY: No hematuria. MUSCULOSKELETAL: Status post right knee revision. PSYCHIATRIC: No documented psych history. NEUROLOGIC: No documented history of CVA. PHYSICAL EXAMINATION: VITAL SIGNS: Temperature 98.2, blood pressure most recently 136/60, respiratory rate 18, saturating 95%. GENERAL: The patient is alert, awake, no acute distress. NECK: JVP approximately 8 cm of water. CHEST: Fair air movement throughout. HEART: Regular rate and rhythm. Normal S1, S2, I/ systolic murmur, nondisplaced PMI. ABDOMEN: Positive bowel sounds, soft. EXTREMITIES: No pitting edema, 1+ pulses bilaterally, posterior right knee covered by dressing, wra p. LABORATORY DATA: Most recently from today, troponin of 7.7 at 8:35 this morning. White count 13.6, hemoglobin 13.3, platelet count 226. IMAGING STUDIES: Knee x-ray from 01/13/2017 revealing status post right knee replacement, prostheti c components are in appropriate position and alignment. ECG: As above in HPI. No further electrocardiograms for my review at this time. IMPRESSION: 1. Non-ST elevation myocardial infarction in the postoperative period status post knee replacement revision. 2. Abnormal electrocardiogram with anteroseptal Q's and IVCD. 3. Hypertension. 4. History of a PTCA alone 1992. 5. Postoperative day #1, status post knee revision. 6. Dyslipidemia. RECOMMENDATIONS: 1. At this time, I would maintain the patient on telemetry monitoring to follow rhythm and rate con trol closely. 2. Continue the patient's aspirin at this time. 3. Would discontinue the patient's Celebrex at this time as it definitely competes with binding sit es for antiplatelet agents and therefore could cause additional cardiovascular events and increased risk of ongoing cardiovascular events. 4. We will initiate the patient on beta kelly to decrease the O2 demand and possible extent of in farction. 5. Check a 2D echocardiogram to further assess this patient's ejection fraction, wall motion, or an y major abnormalities. 6. We will give the patient sublingual nitroglycerin for any recurrent episodes of chest pain. 7. Check a fasting lipid panel and adjust the patient's statin therapy as necessary. We ____ incre ase it somewhat now for ____ statins in the setting of acute myocardial infarction. 8. As possible, would initiate the patient on Lovenox systemic anticoagulation and continue to tren d the patient's cardiac enzymes. Additionally, we will check a baseline set of creatinine and electrolytes. Thank you for allowing me to take part in the care of this patient. I will continue to follow very closely with you. Further recommendations to be made as the patient progresses through his [facility] clinical course. Dictated By: KERLINE BURTON/SOCORRO Conf#: [id number] DID#: [id number] CC: LALO NEWTON MD; SINTIA GRUBER MD; CHENTE GILES MD;*EndCC*
[2017-01-14] MEDS: METOPROLOL 25 MG TAB PO SCH ×2 (16:40→21:28)
--- NOTE | 2017-01-14 17:18 | RADRPT ---
Echocardiogram Report Patient Name: ASHLEIGH RENO Gender: Male Date: 1940 Study Date: 14-Jan-2017 Career And Guidance Counselor: [facility] [place] Location: 522 Ref. Physician: KERLINE PERERA Quality: Adequate Procedures: Transthoracic echocardiogram with complete 2D, M-Mode, and doppler examination. Indications: NSTEMI. 2D/M Mode Doppler Measurement Value Normal Ranges Measurement Value Normal Ranges LVIDd 2D 5.1 3.5 - 5.6 cm ANTON Vmax 2.2 cm2 LVIDs 2D 3.3 2.1 - 4.1 cm ANTON VTI 2.2 cm2 LVPWd 2D 1.1 0.6 - 1.1 cm AV Peak Alok 1.3 m/sec IVSd 2D 1.1 0.6 - 1.1 cm AV Peak PG 7.0 mmHg AoR Diam 2D 2.7 2.0 - 3.7 cm LVOT Peak Alok 0.9 m/sec LA/Ao 2D 4 0 - 1 LVOT Peak PG 3.0 mmHg EDV 2D 125.0 cm3 MV E Peak Alok 0.8 m/sec ESV 2D 37.5 cm3 MV A Peak Alok 0.7 m/sec LVOT Diam 2.1 cm MV E/A 1.6 MV Decel Time 187 msec MV Decel Pepin 4 MV E/A 1.6 TR Peak Alok 1.3 m/sec TR Peak PG 7.2 mmHg RVSP 10.0 mmHg Findings Left Ventricle: Normal left ventricular cavity size. Mild concentric left ventricular hypertrophy. Mild left ventricular systolic dysfunction. Ejection fraction is visually estimated at 4550 %. These segments of the LV are hypokinetic inferior mid segment, inferior apex segment and septum base segment. Right Ventricle: Normal right ventricular size. Normal right ventricular systolic function. Left Atrium: The left atrium is normal in size. Right Atrium: The right atrium is normal in size. Mitral Valve: Mitral valve leaflets appear mildly thickened. Mild mitral annular calcification. Moderate mitral valve regurgitation. Aortic Valve: Trace aortic valve regurgitation. Tricuspid Valve: Estimated peak PA systolic pressure 10 mmHg. There is trace tricuspid regurgitation. Pulmonic Valve: Pulmonic valve not well visualized. Pericardium: Normal pericardium with no significant pericardial effusion. Aorta: Normal aortic root. IVC: Normal size and normal respiratory collapse consistent with normal right atrial pressure. Conclusions 1.Normal left ventricular cavity size. Mild concentric left ventricular hypertrophy. Mild left ventricular systolic dysfunction. Ejection fraction is visually estimated at 45-50 %. These segments of the LV are hypokinetic inferior mid segment, inferior apex segment and septum base segment. 2.Mitral valve leaflets appear mildly thickened. Mild mitral annular calcification. Moderate mitral valve regurgitation. 3.Trace aortic valve regurgitation. 4.Estimated peak PA systolic pressure 10 mmHg. There is trace tricuspid regurgitation. Electronically Signed By: Kerline Perera 14-Jan-2017 17:17:42 -0700 Patient Name: ASHLEIGH RENO Study Date: 14-Jan-2017 [id number]
[2017-01-14 18:31] LABS: CK-MB 39.7 ng/ml (0.0-2.4); TROPONIN-I 7.4 ng/ml (0.00-0.12)
--- NOTE | 2017-01-14 21:01 | RADRPT ---
Vent Rate: 101 bpm RR Interval: 0 msec NM Interval: 188 msec QRS Duration: 126 msec QT Interval: 366 msec QTC Interval: 474 msec P-R-T [place]: 38 - -59 - 67 degrees Sinus tachycardia Left axis deviation Nonspecific intraventricular block Cannot rule out Septal infarct , age undetermined Abnormal ECG Electronically Signed By: Pepe Garcia [id number]
--- NOTE | 2017-01-14 21:02 | RADRPT ---
Vent Rate: 83 bpm RR Interval: 0 msec VT Interval: 242 msec QRS Duration: 122 msec QT Interval: 402 msec QTC Interval: 472 msec P-R-T [place]: 65 - -46 - -30 degrees Sinus rhythm with 1st degree AV block Left axis deviation Septal infarct , age undetermined Abnormal ECG Electronically Signed By: Pepe Garcia [id number]
[2017-01-14] MEDS: ATORVASTATIN 40 MG TAB PO SCH (21:26)
[2017-01-14] MEDS: ENOXAPARIN 80 MG/0.8 ML SYG SC SCH (21:35)
[2017-01-14] MEDS: ZOLPIDEM 5 MG TAB PO PRN (22:08)
[2017-01-15] VITALS (12 sets, daily range): BP systolic 97–136; BP diastolic 40–72; PULSE 59–87; RESP 16–20
[2017-01-15 02:10] LABS: CK-MB 24.9 ng/ml (0.0-2.4); TROPONIN-I 6.46 ng/ml (0.00-0.12)
[2017-01-15] MEDS: oxyCODONE 5 MG TAB PO PRN ×3 (02:39→20:03)
[2017-01-15] MEDS ORDERED: PANTOPRAZOLE (EC) 40 MG TAB PO SCH (06:00)
[2017-01-15] MEDS: PANTOPRAZOLE (EC) 40 MG TAB PO SCH (06:30)
[2017-01-15] MEDS: DEXAMETHASONE 4 MG/ML 1 ML INJ IV SCH (06:30)
[2017-01-15 07:00] LABS: ADD SCAN DIFF NO
[2017-01-15 07:07] LABS: BASOPHILS % 0.2 % (0.0-2.0); EOSINOPHILS % 0.2 % (0.0-7.0); HEMATOCRIT 40.5 % (42.0-52.0); HEMOGLOBIN 12.7 g/dl (14.0-18.0); LYMPHOCYTES # 1.7 10^3/ul (0.8-2.9); LYMPHOCYTES % 13.3 % (15.0-51.0); MEAN CORPUSCULAR HEMOGLOBIN 26.2 pg (29.0-33.0); MEAN CORPUSCULAR HGB CONC 31.4 g/dl (32.0-37.0); MEAN CORPUSCULAR VOLUME 83.5 fl (82.0-101.0); MEAN PLATELET VOLUME 10.5 fl (7.4-10.4); MONOCYTE # 1.1 10^3/ul (0.3-0.9); MONOCYTES % 8.8 % (0.0-11.0); NEUTROPHILS % 77.1 % (39.0-77.0); PLATELET COUNT 203 10^3/UL (140-415); RED BLOOD COUNT 4.85 10^6/ul (4.70-6.10); RED CELL DISTRIBUTION WIDTH 17.2 % (11.5-14.5); WHITE BLOOD COUNT 12.9 10^3/ul (4.8-10.8)
[2017-01-15 07:21] LABS: CALCIUM 8.4 mg/dl (8.4-10.2); CREATININE 1.05 mg/dl (0.61-1.24); POTASSIUM 4.2 mmol/L (3.5-5.1)
[2017-01-15 07:33] LABS: CHOL/HDL RATIO 4.8 RATIO
[2017-01-15 07:58] LABS: CK-MB 16.4 ng/ml (0.0-2.4); TROPONIN-I 5.05 ng/ml (0.00-0.12)
[2017-01-15] MEDS: DOCUSATE SODIUM 100 MG CAP PO SCH ×2 (08:50→20:42)
[2017-01-15] MEDS: FISH OIL 1,000 MG CAP PO SCH ×2 (08:50→20:43)
[2017-01-15] MEDS: METOCLOPRAMIDE 10 MG TAB PO SCH ×4 (08:50→20:45)
[2017-01-15] MEDS: FERROUS FUMARATE (SR) TAB PO SCH ×2 (08:50→20:46)
[2017-01-15] MEDS: METOPROLOL 25 MG TAB PO SCH ×2 (08:51→20:53)
[2017-01-15] MEDS: ENOXAPARIN 80 MG/0.8 ML SYG SC SCH ×2 (08:59→21:01)
--- NOTE | 2017-01-15 09:26 | PN ---
Date/Time of Note Date/Time of Note DATE: 01/15/17 TIME: 09:20 Assessment/Plan Lines/Catheters IV Catheter Type (from Nrsg): Saline Lock Assessment/Plan Assessment/Plan POD #2, s/p revision right TKA with poly exchange -pain cocktail given and drain removed due to persistent bloody drainage -pain meds as needed -cont DVT prophylaxis (lovenox, ASA, MONA stocking) -OOB with PT as indicated -dressings changed due to bloody saturation -cleared for discharge from orthopedic standpoint -with follow medicine and cardiology recommendations regarding elevated troponin's Subjective 24 Hr Interval Summary No acute overnight events. Troponin is trending downward but still elevated. States he has not had chest pain for 24 hours. Currently on lovenox for DVT prophylaxis and ASA for cardiac protection. VSS, afebrile. Denies any significant pain to his right knee. Exam/Review of Systems Vital Signs Vitals Vital Signs Date Time Temp Pulse Resp B/P Pulse Ox O2 Delivery O2 Flow Rate FiO2 01/15/17 08:22 73 01/15/17 07:03 98.5 18 109/53 96 01/15/17 04:15 Room Air 01/13/17 10:20 3.0 Intake and Output 01/14/17 01/14/17 01/15/17 15:00 23:00 07:00 Intake Total 500 ml 480 ml Output Total 200 ml Balance 300 ml 480 ml Exam Free Text/Dictation Dressings saturated with blood. Drain sight to right lateral incision is draining fair amount of bloody drainage Incision clean, dry, and intact but does have dried blood around incision Thigh soft 5/5 Quadriceps, Tibialis Anterior, EHL, Gastroc, Soleus, Peroneals Normal sensation Palpable DT/PT, CR <2 sec Mild to moderate incisional ecchymosis No distal edema Results Result Diagram: 01/15/1712 01/15/17611 RODERICK RASHEED PA-C Jan 15, 2017 09:26
--- NOTE | 2017-01-15 10:23 | CONS ---
Date/Time of Note Date/Time of Note DATE: 01/15/17 TIME: 10:14 Assessment/Plan Assessment/Plan Problems: (1) NSTEMI (non-ST elevated myocardial infarction) Status: Acute Comment: Pt. on enoxaparin, likely accounting for oozing from wound. Undergoing ongoing cardiac eval but cannot have invasive testing at this time. May need further non-invasive testing, possible nuclear scan. Defer to cardiology to decide next course of action. Started low-dose toprol. (2) Hyperlipidemia Status: Chronic Comment: Atorvastatin dose increased. (3) Atherosclerotic heart disease of [place] coronary artery without angina pectoris Status: Chronic Comment: See above Qualifiers: [place] vs. transplanted heart: [place] heart Qualified Code: I25.10 - Atherosclerosis of [place] coronary artery of [place] heart without angina pectoris (4) Aftercare following right knee joint replacement surgery Status: Acute Comment: Pt. doing well from standpoint of his knee joint, POD#2. Has been cleared for d/c from ortho standpoint. Once cleared from cardiac standpoint, will be stable for d/c. Consultation Date/Type/Reason Admit Date/Time Jan 13, 2017 at 05:28 Initial Consult Date 01/13/17 Type of Consultation: Medicine Reason for Consultation Medical management Referring Provider: CHENTE GILES MD 24 HR Interval Summary Constitutional: improved, no complaints Detailed Summary Respiratory: no complaints Cardiovascular: no complaints, No chest pain Gastrointestinal: no complaints Genitourinary: no complaints Musculoskeletal: other (bleeding from surgical wound site) Neurologic: no complaints Additional Comments wants to go home Exam/Review of Systems Vital Signs Vitals VS - Last 72 Hours, by Label Date Time Temp Pulse Resp B/P Pulse Ox O2 Delivery O2 Flow Rate FiO2 01/15/17 08:22 73 01/15/17 07:03 98.5 72 18 109/53 96 01/15/17 04:17 65 01/15/17 04:15 98.3 87 16 128/72 97 Room Air 01/15/17 00:35 62 01/15/17 00:35 98.5 65 16 115/70 98 Room Air 01/14/17 20:26 65 01/14/17 19:14 98.3 64 18 108/51 94 01/14/17 16:16 98.4 78 18 136/68 98 01/14/17 16:10 74 01/14/17 12:50 77 01/14/17 10:59 98.2 82 18 136/60 95 01/14/17 10:46 81 01/14/17 07:56 97.4 75 20 126/62 94 01/14/17 00:10 98.0 81 17 134/68 96 Room Air 01/13/17 20:06 98.5 104 22 174/85 97 01/13/17 15:15 97.6 75 18 120/66 97 Room Air 01/13/17 14:15 97.6 77 18 123/65 97 Room Air 01/13/17 13:45 97.6 81 18 118/62 97 Room Air 01/13/17 13:15 97.6 75 18 123/58 97 Room Air 01/13/17 13:00 97.6 75 18 118/58 97 Room Air 01/13/17 12:45 97.6 80 18 120/58 95 Room Air 01/13/17 12:30 97.6 87 18 127/66 94 Room Air 01/13/17 12:11 01/13/17 10:55 74 15 95/44 92 Room Air 01/13/17 10:52 76 19 96/44 93 Room Air 01/13/17 10:47 76 12 110/46 91 Room Air 01/13/17 10:42 80 15 110/40 92 Room Air 01/13/17 10:40 78 19 110/ 92 Room Air 01/13/17 10:35 80 23 110/59 95 Room Air 01/13/17 10:30 78 15 121/57 95 Room Air 01/13/17 10:25 74 16 119/61 95 Room Air 01/13/17 10:20 70 13 106/57 93 Nasal Cannula 3.0 01/13/17 10:15 Nasal Cannula 2.0 01/13/17 10:15 72 13 107/54 93 Nasal Cannula 3.0 01/13/17 10:10 72 15 102/51 93 Nasal Cannula 3.0 01/13/17 10:05 70 13 101/53 96 Nasal Cannula 3.0 01/13/17 10:02 98.9 01/13/17 10:00 98.0 70 13 117/51 95 Nasal Cannula 3.0 01/13/17 06:10 98.5 64 18 139/65 94 Room Air Vital Signs Date Time Temp Pulse Resp B/P Pulse Ox O2 Delivery O2 Flow Rate FiO2 01/15/17 08:22 73 01/15/17 07:03 98.5 18 109/53 96 01/15/17 04:15 Room Air 01/13/17 10:20 3.0 Intake and Output 01/14/17 01/14/17 01/15/17 15:00 23:00 07:00 Intake Total 500 ml 480 ml Output Total 200 ml Balance 300 ml 480 ml Exam Constitutional: alert, obese, oriented Psych: nl mood/affect, no complaints Respiratory: clear to auscultation, normal air movement Cardiovascular: nl pulses, regular rate and rhythm, No edema, No murmurs/extra sounds, No rub Gastrointestinal: bowel sounds, nl liver, spleen, non-tender, soft, No mass, No rebound or guarding Musculoskeletal: No nl extremities to inspection (R knee dressed w/ active bleeding through dressing) Extremities: normal pulses, No clubbing, No cyanosis, No edema Neurological: CONTRACT TECHNICAL WRITER II-XII intact, nl mental status, nl speech, nl strength Results Result Diagram: 01/15/1761101/15/17611 Results 24 hrs Laboratory Tests Test 01/14/17 17:40 01/15/17 00:33 01/15/17 06:12 Creatine Kinase 339 H 273 H 204 H Creatine Kinase Index 11.7 9.1 8.0 Creatinine Kinase MB (Mass) 39.70 H 24.90 H 16.40 H Troponin I 7.400 *H 6.460 *H 5.050 *H White Blood Count 12.9 H Red Blood Count 4.85 Hemoglobin 12.7 L Hematocrit 40.5 L Mean Corpuscular Volume 83.5 Mean Corpuscular Hemoglobin 26.2 L Mean Corpuscular Hemoglobin Concent 31.4 L Red Cell Distribution Width 17.2 H Platelet Count 203 Mean Platelet Volume 10.5 H Neutrophils % 77.1 H Lymphocytes % 13.3 L Monocytes % 8.8 Eosinophils % 0.2 Basophils % 0.2 Nucleated Red Blood Cells % 0.0 Neutrophils # 10.0 H Lymphocytes # 1.7 Monocytes # 1.1 H Eosinophils # 0.0 Basophils # 0.0 Nucleated Red Blood Cells # 0.0 Sodium Level 135 Potassium Level 4.2 Chloride Level 102 Carbon Dioxide Level 31 Anion Gap 6 L Blood Urea Nitrogen 27 H Creatinine 1.05 Glucose Level 100 Calcium Level 8.4 Triglycerides Level 206 H Cholesterol Level 171 LDL Cholesterol, Calculated 95 HDL Cholesterol 35 Cholesterol/HDL Ratio 4.8 Medications Medications Current Medications Oxycodone HCl (Roxicodone) 20 mg Q3H PRN PO PAIN LEVEL 8-10; Start 01/14/17 at 09:00 Oxycodone HCl (Roxicodone) 10 mg Q3H PRN PO PAIN LEVEL 4-7; Start 01/13/17 at 10:00 Oxycodone HCl (Roxicodone) 5 mg Q3H PRN PO PAIN LEVEL 1-3 Last administered on 01/15/17 06:37; Admin Dose 5 MG; Start 01/13/17 at 10:00 Zolpidem Tartrate (Ambien) 5 mg HS PRN PO INSOMNIA Last administered on 22:08; Admin Dose 5 MG; Start 01/13/17 at 10:00 Miscellaneous Information (Note) NOTE XX ; Start 01/13/17 at 10:00 Celecoxib (Celebrex) 200 mg BID PO Last administered on 01/14/17 08:33; Admin Dose 200 MG; Start 01/14/17 at 09:00; Status Future Hold Dexamethasone (Decadron) 4 mg DAILY@07 IV Last administered on 01/15/17 06:30 ; Admin Dose 4 MG; Start 01/14/17 at 07:00; Stop 01/17/17 at 06:59 Docusate Sodium/ Ferrous Fumarate (Char-Sequels) 1 tab BID PO Last administered on 01/15/17 08:50; Admin Dose 1 TAB; Start 01/14/17 at 09:00 Docusate Sodium (Colace) 200 mg BID PO Last administered on 01/15/17 08:50; Admin Dose 200 MG; Start 01/14/17 at 09:00; Stop 01/17/17 at 08:59 Simethicone (Mylicon) 80 mg TID PRN PO DISTENSION/GAS/BLOATING Last administered on 01/13/17 22:24; Admin Dose 80 MG; Start 01/13/17 at 10:00 Senna/Docusate Sodium (Senokot-S) 2 tab BID PRN PO CONSTIPATION; Start at 10:00 Magnesium Hydroxide (Milk Of Mag) 30 ml HS PRN PO CONSTIPATION; Start 01/13/17 at 10:00 Bisacodyl (Dulcolax Supp) 10 mg DAILY PRN [place] CONSTIPATION; Start 01/13/17 at 10 :00 Sodium Biphosphate/ Sodium Phosphate (Fleet Enema) 133 ml DAILY PRN [place] CONSTIPATION; Start 01/13/17 at 10:00 Diphenhydramine HCl (Benadryl) 25 mg Q4H PRN IM ITCHING OR RASH; Start at 10:00 Ketorolac Tromethamine (Toradol) 15 mg DAILY@06 PRN INJ ADMINSTER BY SURGEON ONLY; Start 01/14/17 at 06:00; Stop 01/18/17 at 05:59 Bupivacaine HCl/ Epinephrine Bitart (Marcaine 0.25%/ Epi (Sdv) 30 ml) 20 ml DAILY@06 PRN INJ ADMINSTER BY SURGEON ONLY; Start 01/14/17 at 06:00; Stop 01/18 at 05:59 Naloxone HCl (Narcan) 0.2 mg Q2M PRN IV DECREASED REPIRATORY RATE; Start at 10:00 Fish Oil (Fish Oil) 2,000 mg BID PO Last administered on 01/15/17 08:50; Admin Dose 2,000 MG; Start 01/13/17 at 21:00 Metoclopramide HCl (Reglan) 10 mg TID PO Last administered on 01/15/17 08:50; Admin Dose 10 MG; Start 01/13/17 at 21:00 Pantoprazole (Protonix Tab) 40 mg DAILY@06 PO Last administered on 01/15/17 06 :30; Admin Dose 40 MG; Start 01/14/17 at 06:00 Lorazepam (Ativan) 0.5 mg Q6H PRN IV ANXIETY; Start 01/13/17 at 19:30 Atorvastatin Calcium (Lipitor) 40 mg HS PO Last administered on 01/14/17 21:26 ; Admin Dose 40 MG; Start 01/14/17 at 21:00 Metoprolol Tartrate (Lopressor) 25 mg BID PO Last administered on 01/15/17 08: 51; Admin Dose 25 MG; Start 01/14/17 at 15:00 Nitroglycerin (Nitroglycerin (Sl Tab) 0.4 Mg) 1 tab Q5M PRN SL ANGINA; Start at 15:00 Enoxaparin Sodium (Lovenox) 70 mg BID SC Last administered on 01/15/17t 08:59; Admin Dose 70 MG; Start 01/14/17 at 21:00 LALO WHYTE MD Jan 15, 2017 10:22
--- NOTE | 2017-01-15 13:49 | CONS ---
Date/Time of Note Date/Time of Note DATE: 01/15/17 TIME: 13:42 Assessment/Plan Assessment/Plan Additional Assessment/Plan s/p Knee Revision ACS CAD s/p PTCA Hypertension Dyslipidemia Denies chest pain, troponin trending down Hemodynamically stable No Celebrex Continue ASA Continue Lovenox Continue Metoprolol Started on Imdur Echo pending Consultation Date/Type/Reason Admit Date/Time Jan 13, 2017 at 05:28 Constitutional: improved, no complaints Eyes: no complaints ENT: no complaints Respiratory: no complaints Cardiovascular: no complaints, No chest pain Gastrointestinal: no complaints Genitourinary: no complaints Musculoskeletal: other (bleeding from surgical wound site) Neurologic: no complaints Psychological: nl mood/affect, no complaints Past Medical History Medical History: coronary artery disease, GERD, high cholesterol, other ( Phuong's gangrene, hypogonadism, JONATHAN, Meniere's dz w/ SNHL) Past Surgical History Past Surgical Hx: other (Penile prosthesis, urethroplasty, R knee arthroscopy, R knee arthroplasty, cataracts, R inguinal hernia repair, multiple debridements for Phuong's gangrene) Social History Alcohol Use: none Smoking Status: Never smoker Drug Use: none Exam/Review of Systems Vital Signs Vitals Vital Signs Date Time Temp Pulse Resp B/P Pulse Ox O2 Delivery O2 Flow Rate FiO2 01/15/17 12:30 59 01/15/17 11:52 98.7 20 122/68 96 01/15/17 04:15 Room Air 01/13/17 10:20 3.0 Intake and Output 01/14/17 01/14/17 01/15/17 15:00 23:00 07:00 Intake Total 500 ml 480 ml Output Total 200 ml Balance 300 ml 480 ml Exam Constitutional: alert, oriented Head: atraumatic, normocephalic Neck: non-tender, supple Respiratory: clear to auscultation Cardiovascular: regular rate and rhythm Gastrointestinal: nl liver, spleen, non-tender, soft Extremities: normal pulses Results Result Diagram: 01/15/17 0612 01/15/17 0612 Results 24 hrs Laboratory Tests Test 01/14/17 17:40 01/15/17 00:33 01/15/17 06:12 Creatine Kinase 339 H 273 H 204 H Creatine Kinase Index 11.7 9.1 8.0 Creatinine Kinase MB (Mass) 39.70 H 24.90 H 16.40 H Troponin I 7.400 *H 6.460 *H 5.050 *H White Blood Count 12.9 H Red Blood Count 4.85 Hemoglobin 12.7 L Hematocrit 40.5 L Mean Corpuscular Volume 83.5 Mean Corpuscular Hemoglobin 26.2 L Mean Corpuscular Hemoglobin Concent 31.4 L Red Cell Distribution Width 17.2 H Platelet Count 203 Mean Platelet Volume 10.5 H Neutrophils % 77.1 H Lymphocytes % 13.3 L Monocytes % 8.8 Eosinophils % 0.2 Basophils % 0.2 Nucleated Red Blood Cells % 0.0 Neutrophils # 10.0 H Lymphocytes # 1.7 Monocytes # 1.1 H Eosinophils # 0.0 Basophils # 0.0 Nucleated Red Blood Cells # 0.0 Sodium Level 135 Potassium Level 4.2 Chloride Level 102 Carbon Dioxide Level 31 Anion Gap 6 L Blood Urea Nitrogen 27 H Creatinine 1.05 Glucose Level 100 Calcium Level 8.4 Triglycerides Level 206 H Cholesterol Level 171 LDL Cholesterol, Calculated 95 HDL Cholesterol 35 Cholesterol/HDL Ratio 4.8 Medications Medications Current Medications Oxycodone HCl (Roxicodone) 20 mg Q3H PRN PO PAIN LEVEL 8-10; Start 01/14/17 at 09:00 Oxycodone HCl (Roxicodone) 10 mg Q3H PRN PO PAIN LEVEL 4-7; Start 01/13/17 at 10:00 Oxycodone HCl (Roxicodone) 5 mg Q3H PRN PO PAIN LEVEL 1-3 Last administered on 01/15/17 06:37; Admin Dose 5 MG; Start 01/13/17 at 10:00 Zolpidem Tartrate (Ambien) 5 mg HS PRN PO INSOMNIA Last administered on 22:08; Admin Dose 5 MG; Start 01/13/17 at 10:00 Miscellaneous Information (Note) NOTE XX ; Start 01/13/17 at 10:00 Celecoxib (Celebrex) 200 mg BID PO Last administered on 01/14/17 08:33; Admin Dose 200 MG; Start 01/14/17 at 09:00; Status Future Hold Dexamethasone (Decadron) 4 mg DAILY@07 IV Last administered on 01/15/17 06:30 ; Admin Dose 4 MG; Start 01/14/17 at 07:00; Stop 01/17/17 at 06:59 Docusate Sodium/ Ferrous Fumarate (Char-Sequels) 1 tab BID PO Last administered on 01/15/17 08:50; Admin Dose 1 TAB; Start 01/14/17 at 09:00 Docusate Sodium (Colace) 200 mg BID PO Last administered on 01/15/17 08:50; Admin Dose 200 MG; Start 01/14/17 at 09:00; Stop 01/17/17 at 08:59 Simethicone (Mylicon) 80 mg TID PRN PO DISTENSION/GAS/BLOATING Last administered on 01/13/17 22:24; Admin Dose 80 MG; Start 01/13/17 at 10:00 Senna/Docusate Sodium (Senokot-S) 2 tab BID PRN PO CONSTIPATION; Start at 10:00 Magnesium Hydroxide (Milk Of Mag) 30 ml HS PRN PO CONSTIPATION; Start 01/13/17 at 10:00 Bisacodyl (Dulcolax Supp) 10 mg DAILY PRN [place] CONSTIPATION; Start 01/13/17 at 10 :00 Sodium Biphosphate/ Sodium Phosphate (Fleet Enema) 133 ml DAILY PRN [place] CONSTIPATION; Start 01/13/17 at 10:00 Diphenhydramine HCl (Benadryl) 25 mg Q4H PRN IM ITCHING OR RASH; Start at 10:00 Ketorolac Tromethamine (Toradol) 15 mg DAILY@06 PRN INJ ADMINSTER BY SURGEON ONLY; Start 01/14/17 at 06:00; Stop 01/18/17 at 05:59 Bupivacaine HCl/ Epinephrine Bitart (Marcaine 0.25%/ Epi (Sdv) 30 ml) 20 ml DAILY@06 PRN INJ ADMINSTER BY SURGEON ONLY; Start 01/14/17 at 06:00; Stop 01/18 at 05:59 Naloxone HCl (Narcan) 0.2 mg Q2M PRN IV DECREASED REPIRATORY RATE; Start at 10:00 Fish Oil (Fish Oil) 2,000 mg BID PO Last administered on 01/15/17 08:50; Admin Dose 2,000 MG; Start 01/13/17 at 21:00 Metoclopramide HCl (Reglan) 10 mg TID PO Last administered on 01/15/17 08:50; Admin Dose 10 MG; Start 01/13/17 at 21:00 Pantoprazole (Protonix Tab) 40 mg DAILY@06 PO Last administered on 01/15/17 06 :30; Admin Dose 40 MG; Start 01/14/17 at 06:00 Lorazepam (Ativan) 0.5 mg Q6H PRN IV ANXIETY; Start 01/13/17 at 19:30 Atorvastatin Calcium (Lipitor) 40 mg HS PO Last administered on 01/14/17 21:26 ; Admin Dose 40 MG; Start 01/14/17 at 21:00 Metoprolol Tartrate (Lopressor) 25 mg BID PO Last administered on 01/15/17 08: 51; Admin Dose 25 MG; Start 01/14/17 at 15:00 Nitroglycerin (Nitroglycerin (Sl Tab) 0.4 Mg) 1 tab Q5M PRN SL ANGINA; Start at 15:00 Enoxaparin Sodium (Lovenox) 70 mg BID SC Last administered on 01/15/17 08:59; Admin Dose 70 MG; Start 01/14/17 at 21:00 JAMES COOLEY M.D. Jan 15, 2017 13:49
[2017-01-15] MEDS: ISOSORBIDE MONONITRATE(SR)30 MG TAB PO SCH (17:22)
[2017-01-15] MEDS: ATORVASTATIN 40 MG TAB PO SCH (20:44)
[2017-01-15] MEDS: ZOLPIDEM 5 MG TAB PO PRN (20:45)
[2017-01-16] VITALS (9 sets, daily range): BP systolic 101–139; BP diastolic 58–67; PULSE 54–61; RESP 18–22
[2017-01-16] MEDS: DEXAMETHASONE 4 MG/ML 1 ML INJ IV SCH (06:13)
[2017-01-16] MEDS: PANTOPRAZOLE (EC) 40 MG TAB PO SCH (06:13)
[2017-01-16 06:35] LABS: ADD SCAN DIFF NO
[2017-01-16 06:44] LABS: BASOPHILS % 0.2 % (0.0-2.0); EOSINOPHILS # 0.1 10^3/ul (0.0-0.5); EOSINOPHILS % 1.2 % (0.0-7.0); HEMATOCRIT 34.2 % (42.0-52.0); LYMPHOCYTES # 2.2 10^3/ul (0.8-2.9); LYMPHOCYTES % 24.9 % (15.0-51.0); MEAN CORPUSCULAR HEMOGLOBIN 26.8 pg (29.0-33.0); MEAN CORPUSCULAR HGB CONC 32.2 g/dl (32.0-37.0); MEAN CORPUSCULAR VOLUME 83.4 fl (82.0-101.0); MEAN PLATELET VOLUME 10.6 fl (7.4-10.4); MONOCYTE # 1.3 10^3/ul (0.3-0.9); MONOCYTES % 14.3 % (0.0-11.0); NEUTROPHIL # 5.2 10^3/ul (1.6-7.5); NEUTROPHILS % 59.1 % (39.0-77.0); PLATELET COUNT 202 10^3/UL (140-415); RED CELL DISTRIBUTION WIDTH 17.1 % (11.5-14.5); WHITE BLOOD COUNT 8.8 10^3/ul (4.8-10.8)
[2017-01-16] MEDS: oxyCODONE 5 MG TAB PO PRN (06:48)
[2017-01-16] MEDS: DOCUSATE SODIUM 100 MG CAP PO SCH (08:45)
[2017-01-16] MEDS: FISH OIL 1,000 MG CAP PO SCH (08:45)
[2017-01-16] MEDS: FERROUS FUMARATE (SR) TAB PO SCH (08:45)
[2017-01-16] MEDS: METOCLOPRAMIDE 10 MG TAB PO SCH ×2 (08:45→17:13)
[2017-01-16] MEDS: ISOSORBIDE MONONITRATE(SR)30 MG TAB PO SCH (08:46)
[2017-01-16] MEDS: METOPROLOL 25 MG TAB PO SCH (08:46)
[2017-01-16] MEDS: ENOXAPARIN 80 MG/0.8 ML SYG SC SCH (08:46)
--- NOTE | 2017-01-16 09:03 | PN ---
Date/Time of Note Date/Time of Note DATE: 01/16/17 TIME: 09:00 Assessment/Plan Lines/Catheters IV Catheter Type (from Nrsg): Saline Lock Jam[place] in Place (from Nrsg): No Assessment/Plan Assessment/Plan POD #3, s/p revision right TKA with poly exchange -pain meds as needed -cont DVT prophylaxis (lovenox, ASA, MONA stocking) -OOB with PT as indicated -cleared for discharge from orthopedic standpoint -with follow medicine and cardiology recommendations regarding elevated troponin's Subjective 24 Hr Interval Summary No acute overnight events. Denies any CP currently. Drain site continuously oozing, likely from ASA and Lovenox use. Troponin trending downward but still elevated. Cardiology workup is still ongoing. VSS, afebrile. Denies any significant knee pain. PT held due to cardiac workup and concerns. Exam/Review of Systems Vital Signs Vitals Vital Signs Date Time Temp Pulse Resp B/P Pulse Ox O2 Delivery O2 Flow Rate FiO2 01/16/17 08:40 61 01/16/17 07:12 98.3 18 127/58 96 01/15/17 04:15 Room Air 01/13/17 10:20 3.0 Intake and Output 01/15/17 01/15/17 01/16/17 15:00 23:00 07:00 Intake Total 350 ml Balance 350 ml Exam Free Text/Dictation Bloody ozzing from drain site and right lateral mid incision Dressing dry Moderate ecchymosis and swelling Incision draining mildy, intact without redness or drainage Thigh soft 5/5 Quadriceps, Tibialis Anterior, EHL, Gastroc, Soleus, Peroneals Normal sensation Palpable DT/PT, CR <2 sec No distal edema Results Result Diagram: 01/16/17 0505 01/15/17 0612 RODERICK RASHEED PA-C Jan 16, 2017 09:03
--- NOTE | 2017-01-16 10:48 | CONS ---
Date/Time of Note Date/Time of Note DATE: 01/16/17 TIME: 10:44 Assessment/Plan Assessment/Plan Problems: (1) NSTEMI (non-ST elevated myocardial infarction) Status: Acute Comment: Cardiology evaluating. Pt. to have nuclear stress test today (2) Atherosclerotic heart disease of [place] coronary artery without angina pectoris Status: Chronic Comment: as above. Now metoprolol and lovenox added Qualifiers: [place] vs. transplanted heart: [place] heart Qualified Code: I25.10 - Atherosclerosis of [place] coronary artery of [place] heart without angina pectoris (3) Hyperlipidemia Status: Chronic Comment: Atorvastatin increased to 40 mg (4) Aftercare following right knee joint replacement surgery Status: Acute Comment: Doing well POD#3 from ortho standpoint. Can even resume PT. Pt. can continue stool softeners and other constipation therapies to treat his lack of BM. O/w cleared for d/c once his cardiac eval is complete. Consultation Date/Type/Reason Admit Date/Time Jan 13, 2017 at 05:28 Initial Consult Date 01/13/17 Type of Consultation: Medicine Reason for Consultation Medical management Referring Provider: CHENTE GILES MD 24 HR Interval Summary Constitutional: improved, no complaints Detailed Summary Respiratory: no complaints Cardiovascular: no complaints Gastrointestinal: constipation Genitourinary: no complaints Musculoskeletal: no complaints Neurologic: no complaints Exam/Review of Systems Vital Signs Vitals VS - Last 72 Hours, by Label Date Time Temp Pulse Resp B/P Pulse Ox O2 Delivery O2 Flow Rate FiO2 01/16/17 08:40 61 01/16/17 07:12 98.3 60 18 127/58 96 01/16/17 04:23 60 01/16/17 04:00 98.2 79 22 101/64 99 01/16/17 00:55 54 01/15/17 23:58 98.2 54 20 97/40 96 01/15/17 20:49 60 01/15/17 19:44 98.4 71 20 100/52 98 01/15/17 16:15 65 01/15/17 15:54 98.6 67 20 136/61 98 01/15/17 12:30 59 01/15/17 11:52 98.7 61 20 122/68 96 01/15/17 08:22 73 01/15/17 07:03 98.5 72 18 109/53 96 01/15/17 04:17 65 01/15/17 04:15 98.3 87 16 128/72 97 Room Air 01/15/17 00:35 62 01/15/17 00:35 98.5 65 16 115/70 98 Room Air 01/14/17 20:26 65 01/14/17 19:14 98.3 64 18 108/51 94 01/14/17 16:16 98.4 78 18 136/68 98 01/14/17 16:10 74 01/14/17 12:50 77 01/14/17 10:59 98.2 82 18 136/60 95 01/14/17 10:46 81 01/14/17 07:56 97.4 75 20 126/62 94 01/14/17 00:10 98.0 81 17 134/68 96 Room Air 01/13/17 20:06 98.5 104 22 174/85 97 01/13/17 15:15 97.6 75 18 120/66 97 Room Air 01/13/17 14:15 97.6 77 18 123/65 97 Room Air 01/13/17 13:45 97.6 81 18 118/62 97 Room Air 01/13/17 13:15 97.6 75 18 123/58 97 Room Air 01/13/17 13:00 97.6 75 18 118/58 97 Room Air 01/13/17 12:45 97.6 80 18 120/58 95 Room Air 01/13/17 12:30 97.6 87 18 127/66 94 Room Air 01/13/17 12:11 01/13/17 10:55 74 15 95/44 92 Room Air 01/13/17 10:52 76 19 96/44 93 Room Air 01/13/17 10:47 76 12 110/46 91 Room Air Vital Signs Date Time Temp Pulse Resp B/P Pulse Ox O2 Delivery O2 Flow Rate FiO2 01/16/17 08:40 61 01/16/17 07:12 98.3 18 127/58 96 01/15/17 04:15 Room Air 01/13/17 10:20 3.0 Intake and Output 01/15/17 01/15/17 01/16/17 15:00 23:00 07:00 Intake Total 350 ml Balance 350 ml Exam Constitutional: alert, obese, oriented Psych: nl mood/affect, no complaints Respiratory: clear to auscultation, normal air movement Cardiovascular: nl pulses, regular rate and rhythm, No edema, No murmurs/extra sounds, No rub Gastrointestinal: bowel sounds, nl liver, spleen, non-tender, soft, No mass, No rebound or guarding Musculoskeletal: No nl extremities to inspection (R knee dressed.) Extremities: normal pulses, No clubbing, No cyanosis, No edema Neurological: NETEZZA DEVELOPER II-XII intact, nl mental status, nl speech, nl strength Results Result Diagram: 01/16/17 0505 01/15/17 0612 Results 24 hrs Laboratory Tests Test 01/16/17 05:05 White Blood Count 8.8 # Red Blood Count 4.10 L Hemoglobin 11.0 L Hematocrit 34.2 L Mean Corpuscular Volume 83.4 Mean Corpuscular Hemoglobin 26.8 L Mean Corpuscular Hemoglobin Concent 32.2 Red Cell Distribution Width 17.1 H Platelet Count 202 Mean Platelet Volume 10.6 H Neutrophils % 59.1 Lymphocytes % 24.9 Monocytes % 14.3 H Eosinophils % 1.2 Basophils % 0.2 Nucleated Red Blood Cells % 0.0 Neutrophils # 5.2 Lymphocytes # 2.2 Monocytes # 1.3 H Eosinophils # 0.1 Basophils # 0.0 Nucleated Red Blood Cells # 0.0 Medications Medications Current Medications Oxycodone HCl (Roxicodone) 20 mg Q3H PRN PO PAIN LEVEL 8-10; Start 01/14/17 at 09:00 Oxycodone HCl (Roxicodone) 10 mg Q3H PRN PO PAIN LEVEL 4-7; Start 01/13/17 at 10:00 Oxycodone HCl (Roxicodone) 5 mg Q3H PRN PO PAIN LEVEL 1-3 Last administered on 01/16/17 06:48; Admin Dose 5 MG; Start 01/13/17 at 10:00 Zolpidem Tartrate (Ambien) 5 mg HS PRN PO INSOMNIA Last administered on 20:45; Admin Dose 5 MG; Start 01/13/17 at 10:00 Miscellaneous Information (Note) NOTE XX ; Start 01/13/17 at 10:00 Celecoxib (Celebrex) 200 mg BID PO Last administered on 01/14/17 08:33; Admin Dose 200 MG; Start 01/14/17 at 09:00; Status Future Hold Dexamethasone (Decadron) 4 mg DAILY@07 IV Last administered on 01/16/17 06:13 ; Admin Dose 4 MG; Start 01/14/17 at 07:00; Stop 01/17/17 at 06:59 Docusate Sodium/ Ferrous Fumarate (Char-Sequels) 1 tab BID PO Last administered on 01/16/17 08:45; Admin Dose 1 TAB; Start 01/14/17 at 09:00 Docusate Sodium (Colace) 200 mg BID PO Last administered on 01/16/17 08:45; Admin Dose 200 MG; Start 01/14/17 at 09:00; Stop 01/17/17 at 08:59 Simethicone (Mylicon) 80 mg TID PRN PO DISTENSION/GAS/BLOATING Last administered on 01/13/17 22:24; Admin Dose 80 MG; Start 01/13/17 at 10:00 Senna/Docusate Sodium (Senokot-S) 2 tab BID PRN PO CONSTIPATION Last administered on 01/15/17 20:43; Admin Dose 2 TAB; Start 01/13/17 at 10:00 Magnesium Hydroxide (Milk Of Mag) 30 ml HS PRN PO CONSTIPATION; Start 01/13/17 at 10:00 Bisacodyl (Dulcolax Supp) 10 mg DAILY PRN [place] CONSTIPATION; Start 01/13/17 at 10 :00 Sodium Biphosphate/ Sodium Phosphate (Fleet Enema) 133 ml DAILY PRN [place] CONSTIPATION; Start 01/13/17 at 10:00 Diphenhydramine HCl (Benadryl) 25 mg Q4H PRN IM ITCHING OR RASH; Start at 10:00 Ketorolac Tromethamine (Toradol) 15 mg DAILY@06 PRN INJ ADMINSTER BY SURGEON ONLY; Start 01/14/17 at 06:00; Stop 01/18/17 at 05:59 Bupivacaine HCl/ Epinephrine Bitart (Marcaine 0.25%/ Epi (Sdv) 30 ml) 20 ml DAILY@06 PRN INJ ADMINSTER BY SURGEON ONLY; Start 01/14/17 at 06:00; Stop 01/18 at 05:59 Naloxone HCl (Narcan) 0.2 mg Q2M PRN IV DECREASED REPIRATORY RATE; Start at 10:00 Fish Oil (Fish Oil) 2,000 mg BID PO Last administered on 01/16/17 08:45; Admin Dose 2,000 MG; Start 01/13/17 at 21:00 Metoclopramide HCl (Reglan) 10 mg TID PO Last administered on 01/16/17 08:45; Admin Dose 10 MG; Start 01/13/17 at 21:00 Pantoprazole (Protonix Tab) 40 mg DAILY@06 PO Last administered on 01/16/17 06 :13; Admin Dose 40 MG; Start 01/14/17 at 06:00 Lorazepam (Ativan) 0.5 mg Q6H PRN IV ANXIETY; Start 01/13/17 at 19:30 Atorvastatin Calcium (Lipitor) 40 mg HS PO Last administered on 01/15/17 20:44 ; Admin Dose 40 MG; Start 01/14/17 at 21:00 Metoprolol Tartrate (Lopressor) 25 mg BID PO Last administered on 01/16/17 08: 46; Admin Dose 25 MG; Start 01/14/17 at 15:00 Nitroglycerin (Nitroglycerin (Sl Tab) 0.4 Mg) 1 tab Q5M PRN SL ANGINA; Start at 15:00 Enoxaparin Sodium (Lovenox) 70 mg BID SC Last administered on 01/15/17 21:01; Admin Dose 70 MG; Start 01/14/17 at 21:00 Isosorbide Mononitrate (Imdur) 30 mg DAILY PO Last administered on 01/16/17 08 :46; Admin Dose 30 MG; Start 01/15/17 at 14:00 LALO WHYTE MD Jan 16, 2017 10:48
[2017-01-16] MEDS ORDERED: REGADENOSON 0.4 MG/5 ML SYG ONE (11:30)
--- NOTE | 2017-01-16 13:17 | CONS ---
Date/Time of Note Date/Time of Note DATE: 01/16/17 TIME: 13:14 Assessment/Plan Assessment/Plan Additional Assessment/Plan s/p Knee Revision ACS CAD s/p PTCA Hypertension Dyslipidemia Hemodynamically stable Awaiting Stress test result if no reversible ischemia ok for discharge Echo shows EF 20-25% No Celebrex Started on lisinopril Continue ASA Continue Lovenox Continue Metoprolol Continue Imdur Consultation Date/Type/Reason Admit Date/Time Jan 13, 2017 at 05:28 Initial Consult Date 01/13/17 Type of Consultation: Medicine Referring Provider: CHENTE GILES MD Exam/Review of Systems Vital Signs Vitals Vital Signs Date Time Temp Pulse Resp B/P Pulse Ox O2 Delivery O2 Flow Rate FiO2 01/16/17 11:34 01/15/17 04:15 Room Air 01/13/17 10:20 3.0 Intake and Output 01/15/17 01/15/17 01/16/17 15:00 23:00 07:00 Intake Total 350 ml Balance 350 ml Results Result Diagram: 01/16/17 0505 01/15/17 0612 Results 24 hrs Laboratory Tests Test 01/16/17 05:05 White Blood Count 8.8 # Red Blood Count 4.10 L Hemoglobin 11.0 L Hematocrit 34.2 L Mean Corpuscular Volume 83.4 Mean Corpuscular Hemoglobin 26.8 L Mean Corpuscular Hemoglobin Concent 32.2 Red Cell Distribution Width 17.1 H Platelet Count 202 Mean Platelet Volume 10.6 H Neutrophils % 59.1 Lymphocytes % 24.9 Monocytes % 14.3 H Eosinophils % 1.2 Basophils % 0.2 Nucleated Red Blood Cells % 0.0 Neutrophils # 5.2 Lymphocytes # 2.2 Monocytes # 1.3 H Eosinophils # 0.1 Basophils # 0.0 Nucleated Red Blood Cells # 0.0 Medications Medications Current Medications Oxycodone HCl (Roxicodone) 20 mg Q3H PRN PO PAIN LEVEL 8-10; Start 01/14/17 at 09:00 Oxycodone HCl (Roxicodone) 10 mg Q3H PRN PO PAIN LEVEL 4-7; Start 01/13/17 at 10:00 Oxycodone HCl (Roxicodone) 5 mg Q3H PRN PO PAIN LEVEL 1-3 Last administered on 01/16/17t 06:48; Admin Dose 5 MG; Start 01/13/17 at 10:00 Zolpidem Tartrate (Ambien) 5 mg HS PRN PO INSOMNIA Last administered on 20:45; Admin Dose 5 MG; Start 01/13/17 at 10:00 Miscellaneous Information (Note) NOTE XX ; Start 01/13/17 at 10:00 Celecoxib (Celebrex) 200 mg BID PO Last administered on 01/14/17 08:33; Admin Dose 200 MG; Start 01/14/17 at 09:00; Status Future Hold Dexamethasone (Decadron) 4 mg DAILY@07 IV Last administered on 01/16/17 06:13 ; Admin Dose 4 MG; Start 01/14/17 at 07:00; Stop 01/17/17 at 06:59 Docusate Sodium/ Ferrous Fumarate (Char-Sequels) 1 tab BID PO Last administered on 01/16/17 08:45; Admin Dose 1 TAB; Start 01/14/17 at 09:00 Docusate Sodium (Colace) 200 mg BID PO Last administered on 01/16/17 08:45; Admin Dose 200 MG; Start 01/14/17 at 09:00; Stop 01/17/17 at 08:59 Simethicone (Mylicon) 80 mg TID PRN PO DISTENSION/GAS/BLOATING Last administered on 01/13/17 22:24; Admin Dose 80 MG; Start 01/13/17 at 10:00 Senna/Docusate Sodium (Senokot-S) 2 tab BID PRN PO CONSTIPATION Last administered on 01/15/17 20:43; Admin Dose 2 TAB; Start 01/13/17 at 10:00 Magnesium Hydroxide (Milk Of Mag) 30 ml HS PRN PO CONSTIPATION; Start 01/13/17 at 10:00 Bisacodyl (Dulcolax Supp) 10 mg DAILY PRN [place] CONSTIPATION; Start 01/13/17 at 10 :00 Sodium Biphosphate/ Sodium Phosphate (Fleet Enema) 133 ml DAILY PRN [place] CONSTIPATION; Start 01/13/17 at 10:00 Diphenhydramine HCl (Benadryl) 25 mg Q4H PRN IM ITCHING OR RASH; Start at 10:00 Ketorolac Tromethamine (Toradol) 15 mg DAILY@06 PRN INJ ADMINSTER BY SURGEON ONLY; Start 01/14/17 at 06:00; Stop 01/18/17 at 05:59 Bupivacaine HCl/ Epinephrine Bitart (Marcaine 0.25%/ Epi (Sdv) 30 ml) 20 ml DAILY@06 PRN INJ ADMINSTER BY SURGEON ONLY; Start 01/14/17 at 06:00; Stop 01/18 at 05:59 Naloxone HCl (Narcan) 0.2 mg Q2M PRN IV DECREASED REPIRATORY RATE; Start at 10:00 Fish Oil (Fish Oil) 2,000 mg BID PO Last administered on 01/16/17 08:45; Admin Dose 2,000 MG; Start 01/13/17 at 21:00 Metoclopramide HCl (Reglan) 10 mg TID PO Last administered on 01/16/17 08:45; Admin Dose 10 MG; Start 01/13/17 at 21:00 Pantoprazole (Protonix Tab) 40 mg DAILY@06 PO Last administered on 01/16/17 06 :13; Admin Dose 40 MG; Start 01/14/17 at 06:00 Lorazepam (Ativan) 0.5 mg Q6H PRN IV ANXIETY; Start 01/13/17 at 19:30 Atorvastatin Calcium (Lipitor) 40 mg HS PO Last administered on 01/15/17 20:44 ; Admin Dose 40 MG; Start 01/14/17 at 21:00 Metoprolol Tartrate (Lopressor) 25 mg BID PO Last administered on 01/16/17 08: 46; Admin Dose 25 MG; Start 01/14/17 at 15:00 Nitroglycerin (Nitroglycerin (Sl Tab) 0.4 Mg) 1 tab Q5M PRN SL ANGINA; Start at 15:00 Enoxaparin Sodium (Lovenox) 70 mg BID SC Last administered on 01/15/17 21:01; Admin Dose 70 MG; Start 01/14/17 at 21:00 Isosorbide Mononitrate (Imdur) 30 mg DAILY PO Last administered on 01/16/17 08 :46; Admin Dose 30 MG; Start 01/15/17 at 14:00 JAMES COOLEY M.D. Jan 16, 2017 13:17
[2017-01-16] MEDS ORDERED: LISINOPRIL 5 MG TAB PO SCH (13:30)
--- NOTE | 2017-01-16 14:20 | RADRPT ---
PROCEDURE: Lexiscan myocardial perfusion study CLINICAL INDICATION: 76 -year-old patient complaining of chest pain. TECHNIQUE: Lexiscan 0.4 mg intravenously separate acquisition gated myocardial perfusion SPECT usi ng Tc 99m Myoview 30.0 mCi intravenously at stress and Tc-99m Myoview, 10.0 mCi intravenously at res t was performed using the rest/stress sequence. Poststress Myoview SPECT images were obtained in th e supine position. COMPARISON: No prior studies. FINDINGS: Perfusion images reveal a moderate size moderate in degree nonreversible perfusion defect in the inf erior and lateral muñoz. Lexiscan post stress gated SPECT images demonstrate mild to moderate hypokinesis of the inferior and lateral muñoz. IMPRESSION: 1. The type and distribution of the scintigraphic abnormalities are most consistent with a moderate size nonreversible perfusion defect in the inferior and lateral muñoz. 2. Mild to moderate hypokinesis of the inferior and lateral muñoz. 3. The left ventricle ejection fraction at stress is 37%. RPTAT: QQ .Ivette Hernadez MD, Date Time Electronically viewed and signed by .Ivette Hernadez MD, on 01/16/2017 14:20 .L/
--- NOTE | 2017-01-16 17:22 | DS ---
Date/Time of Note Date/Time of Note DATE: 01/16/17 TIME: 17:12 Discharge Summary Admission/Discharge Info Admit Date/Time Jan 13, 2017 at 05:28 Discharge Date/Time 01/16/2017 @ 1830 Final Diagnosis Unstable R knee following total replacement, now s/p installation of thicker tibial bearing; NSTEMI Patient Condition: Fair Consults Aman: medicine; Trever: cardiology Procedures Removal of tibial bearing and installation of thicker tibial bearing Echocardiogram Nuclear spect scan Hx of Present Illness 76 y/o C M w/ h/o CAD, Phuong's gangrene, hypogonadism, GERD, JONATHAN, Meniere's dz w/ SNHL, hyperlipidemia, status post right total knee replacement who is coming in for revision of the pad in the knee replacement. Hospital Course In the evening on POD#0 pt. experienced what he described as extreme heartburn. Eventually resolved after TUMs and Gas-X. Pt. remained asymptomatic throughout the admission. EKG showed anteroseptal Q-waves and intraventricular conduction defect. Next am had troponin elevated to 7. ECHO showed Normal left ventricular cavity size. Mild concentric left ventricular hypertrophy. Mild left ventricular systolic dysfunction. Ejection fraction is visually estimated at 45-50 %. These segments of the LV are hypokinetic inferior mid segment, inferior apex segment and septum base segment. Pt. had nuclear spect scan under stress and was found to have non-reversible defect. Since no intervention would be helpful, pt. cleared for d/c. Home Meds Active Scripts Fish Oil* (Fish Oil*) 1,000 Mg Cap, 2000 MG PO BID, #30 CAP Prov:NAVJOT SINGH MD 02/23/15 Atorvastatin Calcium (Atorvastatin Calcium) 10 Mg Tab, 10 MG PO HS, #30 TAB 3 Refills Prov:NAVJOT SINGH MD 02/23/15 Reported Medications Metoclopramide Hcl* (Metoclopramide Hcl*) 10 Mg Tablet, 10 MG PO TID, TAB 01/13/17 Omeprazole* (Omeprazole*) 20 Mg Capsule.dr, 20 MG PO DAILY, #30 CAP 01/13/17 Discontinued Scripts Aspirin* (Ecotrin*) 325 Mg Tabec, 325 MG PO BID, #30 BOTTLE 1 Refill Prov:NAVJOT SINGH MD 02/23/15 Zolpidem Tartrate (Ambien Juan Miguel) 5 Mg Tab, 5 MG PO HS Y for INSOMNIA, #30 Prov:NAVJOT SINGH MD 02/23/15 Vitamin B Comp W-C (Total B With C) 1 Cap Cap, 1 CAP PO DAILY, #30 Prov:NAVJOT SINHG MD 02/23/15 [Docusate Sodium/Ferrous Fumar] 1 TAB TABSR No Conflict Check, 1 TAB PO BID, #60 Prov:NAVJOT SINGH MD 02/23/15 Pantoprazole (Protonix) 40 Mg Tabec, 40 MG PO DAILY@06, #30 Prov:NAVJOT SINGH MD 02/23/15 Bisacodyl* (Bisacodyl*) 10 Mg Supp, 10 MG [place] DAILY Y for CONSTIPATION, #30 SUPP Prov:NAVJOT SINGH MD 02/23/15 Bethanechol Chloride* (Urecholine*) 25 Mg Tab, 25 MG PO PRN Y for UNABLE TO VOID , #30 TAB Prov:NAVJOT SINGH MD 02/23/15 Follow-up Plan 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 Khoury 2 weeks Pending Labs Laboratory Tests Test 01/16/17 05:05 White Blood Count 8.810^3/ul (4.8-10.8) Red Blood Count 4.1010^6/ul (4.70-6.10) Hemoglobin 11.0g/dl (14.0-18.0) Hematocrit 34.2% (42.0-52.0) Mean Corpuscular Volume 83.4fl (82.0-101.0) Mean Corpuscular Hemoglobin 26.8pg (29.0-33.0) Mean Corpuscular Hemoglobin Concent 32.2g/dl (32.0-37.0) Red Cell Distribution Width 17.1% (11.5-14.5) Platelet Count 24058^3/UL (140-415) Mean Platelet Volume 10.6fl (7.4-10.4) Neutrophils % 59.1% (39.0-77.0) Lymphocytes % 24.9% (15.0-51.0) Monocytes % 14.3% (0.0-11.0) Eosinophils % 1.2% (0.0-7.0) Basophils % 0.2% (0.0-2.0) Nucleated Red Blood Cells % 0.0/100WBC (0.0-0.0) Neutrophils # 5.210^3/ul (1.6-7.5) Lymphocytes # 2.210^3/ul (0.8-2.9) Monocytes # 1.310^3/ul (0.3-0.9) Eosinophils # 0.110^3/ul (0.0-0.5) Basophils # 0.010^3/ul (0.0-0.1) Nucleated Red Blood Cells # 0.010^3/ul (0.0-0.0) LALO WHYTE MD Jan 16, 2017 17:22
--- NOTE | 2017-01-16 18:35 | RADRPT ---
Vent Rate: 71 bpm RR Interval: 0 msec WA Interval: 204 msec QRS Duration: 128 msec QT Interval: 430 msec QTC Interval: 467 msec P-R-T [place]: 70 - -79 - 82 degrees Normal sinus rhythm with sinus arrhythmia Left axis deviation Left bundle branch block Abnormal ECG Electronically Signed By: Pepe Garcia [id number]
--- NOTE | 2017-01-17 07:21 | DS ---
Date/Time of Note Date/Time of Note DATE: 01/17/17 TIME: 07:19 Discharge Summary Admission/Discharge Info Admit Date/Time Jan 13, 2017 at 05:28 Discharge Date/Time Jan 16, 2017 at 18:35 Final Diagnosis Status Post Right total knee revision with polyethylene liner exchange. Patient Condition: Stable Hx of Present Illness 76 y/o C M w/ h/o CAD, Phuong's gangrene, hypogonadism, GERD, JONATHAN, Meniere's dz w/ SNHL, hyperlipidemia, status post right total knee replacement who is coming in for revision of the pad in the knee replacement. Hospital Course On the day of admission, the patient underwent right total knee revision with polyethylene liner exchange. Intraoperative complications: None Postoperative complications: Extreme heartburn/chest pain. Patient underwent cardiac monitoring with Dr. Newton with collaboration from patient's field adjuster, Dr. Perera whom started patient on Lovenox. The patient was given prophylactic antibiotics and anticoagulants. On the day of surgery and first postoperative day patient was started on gait training and was taught usual restrictions following knee replacement/revision. Suction drain removed on the first postoperative day and the dressings were changed. The wound was found to be clean and healing well. There was no sign of infection. Pain cocktail given. On the second postoperative day, patient continued with inpatient PT. Dressings were changed. Wound was found to be clean and healing well. No signs of infection. Pain cocktail given. On the day of discharge, the wound was clean and healing well; there was no sign of infection. The dressings were changed. In regards to cardiac monitoring throughout patient's stay in hospital following therapy/evaluations were performed by Dr. Newton: "In the evening on POD#0 pt. experienced what he described as extreme heartburn. Eventually resolved after TUMs and Gas-X. Pt. remained asymptomatic throughout the admission. EKG showed anteroseptal Q-waves and intraventricular conduction defect. Next am had troponin elevated to 7. ECHO showed Normal left ventricular cavity size. Mild concentric left ventricular hypertrophy. Mild left ventricular systolic dysfunction. Ejection fraction is visually estimated at 45-50 %. These segments of the LV are hypokinetic inferior mid segment, inferior apex segment and septum base segment. Pt. had nuclear spect scan under stress and was found to have non-reversible defect. Since no intervention would be helpful, pt. cleared for d/c." Discharge Temperature: 98.3 Discharge White Blood Cell Count: 8.8 Discharge Hemoglobin: 11 The patient was discharged home with home health. Arrangements were made for visiting nurses and home health/physical therapy. Tegaderm with pad also provided for patient. Instructions given on how to use to keep wound dry while showering. Patient may discontinue use of Tegaderm with pad after janelle have been removed around 10 days postoperatively. The patient will be seen in office at scheduled postoperative evaluation date given on their preoperative exam. Should patient complain of any problems prior to scheduled postoperative evaluation date, they may call into outpatient clinic to determine if they need to be scheduled at sooner appointment to be seen immediately if needed. Discharge medications: As per medication reconciliation form Diet: Same as preadmission diet. This is Tracy Ariza PA-C dictating discharge summary for Dr. Sam Khoury. Home Meds Active Scripts Fish Oil* (Fish Oil*) 1,000 Mg Cap, 2000 MG PO BID, #30 CAP Prov:NAVJOT SINGH MD 02/23/15 Atorvastatin Calcium (Atorvastatin Calcium) 10 Mg Tab, 10 MG PO HS, #30 TAB 3 Refills Prov:NAVJOT SINGH MD 02/23/15 Reported Medications Metoclopramide Hcl* (Metoclopramide Hcl*) 10 Mg Tablet, 10 MG PO TID, TAB 01/13/17 Omeprazole* (Omeprazole*) 20 Mg Capsule.dr, 20 MG PO DAILY, #30 CAP 01/13/17 Discontinued Scripts Aspirin* (Ecotrin*) 325 Mg Tabec, 325 MG PO BID, #30 BOTTLE 1 Refill Prov:NAVJOT SINGH MD 02/23/15 Zolpidem Tartrate (Ambien Juan Miguel) 5 Mg Tab, 5 MG PO HS Y for INSOMNIA, #30 Prov:NAVJOT SINGH MD 02/23/15 Vitamin B Comp W-C (Total B With C) 1 Cap Cap, 1 CAP PO DAILY, #30 Prov:NAVJOT SINGH MD 02/23/15 [Docusate Sodium/Ferrous Fumar] 1 TAB TABSR No Conflict Check, 1 TAB PO BID, #60 Prov:NAVJOT SINGH MD 02/23/15 Pantoprazole (Protonix) 40 Mg Tabec, 40 MG PO DAILY@06, #30 Prov:NAVJOT SINGH MD 02/23/15 Bisacodyl* (Bisacodyl*) 10 Mg Supp, 10 MG [place] DAILY Y for CONSTIPATION, #30 SUPP Prov:NAVJOT SINGH MD 02/23/15 Bethanechol Chloride* (Urecholine*) 25 Mg Tab, 25 MG PO PRN Y for UNABLE TO VOID , #30 TAB Prov:NAVJOT SINGH MD 02/23/15 Follow-up Plan Follow Up at scheduled post-op visit given on his preop evaluation. TRACY BAÑUELOS PA-C Jan 17, 2017 07:21
== END 2017-01-16 18:35 | disposition home health service (06) | DRG 488 ==
LOC: REC 05:28 → MS1 12:03 → TEL 01-14 10:27
PROC: 0SUV09Z Supplement Right Knee Joint, Tibial Surface with Liner, Open Approach (ICD-10-PCS; 2017-01-13)
PROC: 0SPC09Z Removal of Liner from Right Knee Joint, Open Approach (ICD-10-PCS; principal; 2017-01-13 07:30)
DX: T84.022A Instability of internal right knee prosthesis, initial encounter (principal); I21.4 Non-ST elevation (NSTEMI) myocardial infarction; I25.10 Atherosclerotic heart disease of native coronary artery without angina pectoris; G47.33 Obstructive sleep apnea (adult) (pediatric); E78.5 Hyperlipidemia, unspecified; K21.9 Gastro-esophageal reflux disease without esophagitis; Z95.5 Presence of coronary angioplasty implant and graft; Y83.8 Other surgical procedures as the cause of abnormal reaction of the patient, or of later complication, without mention of misadventure at the time of the procedure
CPT/HCPCS: 73560; 78452; 80048; 80061; 82550; 82553; 84484; 85025; 86850; 86900; 86901; 86920; 87070; 87075; 88300; 89051; 93005; 93017; 93306; 97162; A9500; A9505; J0131; J0735; J1100; J1885; J2250; J2274; J2370; J2405; J2765; J2785; J2795; J3370; J7120; J7121

== ENCOUNTER → 2017-02-01 | Outpatient (CLI) | payer MEDICARE, MEDICAID ==
[~2017-02-01] MED LIST changes: -ASPI-781 PO; -BETH25TA39 PO; -BISA10SU75 PR; -Docusate Sodium/Ferrous Fumar PO; +METO10TA96 PO; +OMEP20CA16 PO; -PANT40TA4 PO; -VITBC PO; -ZOLP5TAB PO
--- NOTE | 2017-02-01 14:01 | PN ---
Date/Time of Note Date/Time of Note DATE: 02/01/17 TIME: 13:57 Outpatient Progress Note Chief Complaint 3 week postop right total knee replacement revision HPI 76-year-old male presents today for three-week postoperative appointment status post right total knee arthroplasty revision with replacement liner on 2016. Patient has been doing well status post surgery. Patient has complaints of pain that is of tingling sensation. Nerve style symptoms are to the anterior knee around surgical wound. No complications with scarring. Patient does receive soreness to the posterior knee on occasion. Worried about patient' s limited activity as he states that he is walking on average 200 feet a day. Has yet to initiate outpatient therapy. Denies any chest pain/tightness. Patient did have elevated cardiac enzymes while in the hospital but denies any cardiac related symptoms since discharge. Review of Systems Const: No Fever, no chills, no Fatigue, normal appetite, no diaphoresis. Resp: No SOB, no wheezing, no chest pain. CV: No chest pain, no palpitaions, no FLORES. Physical Exam Blood pressure is 120/65, temperature 98, pulse 84, respiratory rate 14, height 6 feet 2 inches, weight 235 pounds General Appearance: well-developed, well-nourished, in no acute distress. Right knee: Surgical wound healing well. Steri-Strips in place. [place] have been removed. No signs of infection. No tenderness to palpation. Tingling sensation to light touch to the anterior knee more superiorly around surgical wound. Negative Homans sign. Patient is able to actively extend with about 10 lag from full extension. Patient able to flex up to 115. No pain with range of motion. Allergies Coded Allergies: cephalexin (Verified Allergy, Unknown, 01/13/17) gabapentin (Unverified Allergy, Unknown, 01/13/17) Assessment/Plan -Wound healing well after staple removal. No signs of infection. -Continue ASA 325 mg twice daily for DVT prophylaxis until 6 weeks status post surgery. -No signs of DVT. -Patient progressing well. -Follow-up at 6 week postop appointment. X-rays will be performed at 6 weeks postoperative appointment. -Patient made aware that they may follow-up sooner, should they experience any issues or complications as we will be glad to see them. -Order for outpatient physical therapy given today with focus on improved range of motion. -Antibiotic card provided today. Patient was given strict instructions regarding dental prophylaxis. Patient has had previous total knee arthroplasty on 02/20/2015 to the right knee and states that he has not performed any dental prophylaxis after that surgery and has had about 3-4 dental procedures since. Antibiotic card provided for patient. Patient made aware that dental prophylaxis will be necessary prior to any dental procedure for the remainder of their lifetime. Patient is aware that they must contact their dentist prior to any procedure to inform them of previous joint replacement with prosthesis implant so appropriate antibiotic may be prescribed to lower risk of joint infection status post surgery. Card will also serve as confirmation should patient be traveling and have to go through security such as at an airport. Medications Home Meds Active Scripts Fish Oil* (Fish Oil*) 1,000 Mg Cap, 2000 MG PO BID, #30 CAP Prov:NAVJOT SINGH MD 02/23/15 Atorvastatin Calcium (Atorvastatin Calcium) 10 Mg Tab, 10 MG PO HS, #30 TAB 3 Refills Prov:NAVJOT SINGH MD 02/23/15 Reported Medications Metoclopramide Hcl* (Metoclopramide Hcl*) 10 Mg Tablet, 10 MG PO TID, TAB 01/13/17 Omeprazole* (Omeprazole*) 20 Mg Capsule., 20 MG PO DAILY, #30 CAP 01/13/17 TRACY BAÑUELOS PA-C February 01, 2017 14:01
== END | disposition home or self-care (01) ==
LOC: HKI 13:29
DX: Z47.1 Aftercare following joint replacement surgery (principal); Z96.651 Presence of right artificial knee joint

== ENCOUNTER → 2017-02-24 | Outpatient (CLI) | payer MEDICARE, MEDICAID ==
--- NOTE | 2017-02-24 15:32 | RADRPT ---
PROCEDURE: XR right knee. CLINICAL INDICATION: Knee pain. TECHNIQUE: AP weightbearing, lateral weightbearing and sunrise views are available for review. COMPARISON: 01/13/2017 FINDINGS: There is a constrained total knee replacement. There is no evidence of loosening of the prosthesis. There is no evidence of hardware failure. There is diffuse osteopenia. No acute fracture or dislocat ion is seen.No osseous lesions are identified. The soft tissues are unremarkable . IMPRESSION: Diffuse osteopenia. Unremarkable constrained total knee replacement. RPTAT: HGDB .Sampson Chappell MD, MD Date Time Electronically viewed and signed by .Sampson Chappell MD, on 02/24/2017 15:32 .B/
--- NOTE | 2017-02-24 16:24 | PN ---
Date/Time of Note Date/Time of Note DATE: 02/24/17 TIME: 16:20 Outpatient Progress Note Chief Complaint 6 week postoperative visit status post right total knee revision surgery with replacement liner HPI 76-year-old male presents today for 6 week postoperative visit status post right total knee revision surgery with replacement polyethylene liner. In regards to pain, patient denies any pain to the right knee with activity. He does experience "tingling" sensation to the knee on occasion. His biggest complaint is mild and at times moderate stiffness to the knee when rising from a seated position after he has been sitting for long period of time. Patient is very pleased status post surgery. Continues to improve in regards to functionality. Presents today for x-ray as well. Review of Systems Const: No Fever, no chills, no Fatigue, normal appetite, no diaphoresis. Resp: No SOB, no wheezing, no chest pain. CV: No chest pain, no palpitaions, no FLORES. Physical Exam Blood pressure is 103/60, temperature is 98, pulse is 84, respiratory rate is 12, height is 6 feet 2 inches, weight is 239 pounds General Appearance: well-developed, well-nourished, in no acute distress. Right knee: Gait is normal and nonantalgic. Patient has 5 lag from full extension with active flexion up to 125. 5/5 strength on resistance with flexion and extension. No tenderness to palpation on exam today. Negative Homans sign. Imaging: X-ray of the right knee performed on 02/24/2017 showing all components appearing well aligned, attached and integrated to the bone. No signs of any lucency between metal and bone. Allergies Coded Allergies: cephalexin (Verified Allergy, Unknown, 01/13/17) gabapentin (Unverified Allergy, Unknown, 01/13/17) Assessment/Plan -Patient progressing well -Surgical wound continues to heal well. -No signs of infection or DVT on exam. -X-rays showing no abnormalities in regards to prosthesis attachment to bone. -Range of motion is improved status post total knee replacement. -Follow-up 6 months status post surgery. If patient is doing well at that time , possible follow-up on as-needed basis from that point. Dental prophylaxis discussed in detail today. Patient given prophylaxis card with antibiotic options. Should patient have allergy to specific medication ( eg penicillin) alternative options are also provided on the card. Patient is aware that antibiotics should be taken prior to any procedures to prevent increased risk of infection to the joint. Patient is aware that this will be for the rest of their life. Patient states understanding and compliance. Medications Home Meds Active Scripts Fish Oil* (Fish Oil*) 1,000 Mg Cap, 2000 MG PO BID, #30 CAP Prov:NAVJOT SINGH MD 02/23/15 Atorvastatin Calcium (Atorvastatin Calcium) 10 Mg Tab, 10 MG PO HS, #30 TAB 3 Refills Prov:NAVJOT SINGH MD 02/23/15 Reported Medications Metoclopramide Hcl* (Metoclopramide Hcl*) 10 Mg Tablet, 10 MG PO TID, TAB 01/13/17 Omeprazole* (Omeprazole*) 20 Mg Capsule., 20 MG PO DAILY, #30 CAP 01/13/17 TRACY BAÑUELOS PA-C February 24, 2017 16:24
== END | disposition home or self-care (01) ==
LOC: HKI 13:46
DX: Z47.1 Aftercare following joint replacement surgery (principal); Z96.651 Presence of right artificial knee joint

== ENCOUNTER 2017-03-24 08:31 | Inpatient (IN) | payer MEDICARE, OTHER ==
[2017-03-24] VITALS (24 sets, daily range): BP systolic 118–176; BP diastolic 52–93; PULSE 52–77; RESP 15–25; Ht 188 cm; Wt 108.3 kg
[~2017-03-24] VITALS: Ht 188 cm; Wt 108.3 kg
[2017-03-24] MEDS ORDERED: METO25TA7 PO (09:08)
[2017-03-24] MEDS ORDERED: BENA5TAB2 PO (09:08)
[2017-03-24] MEDS ORDERED: ZOC10 PO (09:09)
[2017-03-24] MEDS ORDERED: ASPI325T4 PO (09:09)
[2017-03-24] MEDS ORDERED: DIPHENHYDRAMINE 50 MG CAP PO SCH (10:00)
[2017-03-24] MEDS ORDERED: DIAZEPAM 5 MG TAB PO SCH (10:00)
[2017-03-24] MEDS ORDERED: SOD CHLORIDE 0.45% 1,000 ML IV SCH (10:00)
[2017-03-24] MEDS ORDERED: FAMOTIDINE 20 MG TAB PO SCH (10:00)
[2017-03-24] MEDS ORDERED: LIDOCAINE 1% (MDV) 20 ML INJ ONE (10:28)
[2017-03-24] MEDS ORDERED: NITROGLYCERIN (IC) 100 MCG/ML INJ ONE (10:28)
[2017-03-24] MEDS ORDERED: HEPARIN 1000 UNITS/ML 10 ML INJ ONE (10:28)
[2017-03-24] MEDS ORDERED: VERAPAMIL 5 MG INJ ONE (10:28)
[2017-03-24] MEDS ORDERED: IODIXANOL LOCM 100 ML BTL ONE (10:28)
[2017-03-24] MEDS ORDERED: MIDAZOLAM 1 MG/ML 2 ML INJ ONE (10:29)
[2017-03-24] MEDS ORDERED: FENTAnyl 50 MCG/ML VIAL ONE (10:29)
--- NOTE | 2017-03-24 10:54 | RADRPT ---
PROCEDURE: XR Chest AP portable CLINICAL INDICATION: Left heart cath TECHNIQUE: An AP portable radiograph of the chest was submitted. COMPARISON: None. FINDINGS: Support Hardware: None Cardiovascular: The heart is upper normal in size, the aorta appears slightly atherosclerotic and th e pulmonary vasculature appears unremarkable. Lung [place]ral[place]: The lung corrales appear clear with no nodule, alveolar infiltrate, or interstitial promi nence evident. Pleural Spaces: No pneumothorax or pleural effusion is identified. Osseous Structures: Mild degenerative spine changes are seen diffusely. Soft Tissues: The soft tissues appear generous. IMPRESSION: 1. The heart is upper normal in size, the aorta appears slightly atherosclerotic, and the pulmonary vasculature is unremarkable. 2. Mild degenerative thoracic spine changes are seen diffusely. Physician Henrry Date Time Electronically viewed and signed by Physician Henrry on 03/24/2017 10:54 /
[2017-03-24] MEDS ORDERED: AL HYDROX/MG HYDROX/SIMETH 30 ML CUP PO PRN (12:00)
[2017-03-24] MEDS ORDERED: ONDANSETRON 4 MG INJ IV PRN (12:00)
[2017-03-24] MEDS ORDERED: morphine 2 MG INJ IV PRN (12:00)
[2017-03-24] MEDS ORDERED: ACETAMINOPHEN 325 MG TAB PO PRN ×2 (12:00→13:30)
--- NOTE | 2017-03-24 13:12 | HP ---
Date/Time of Note Date/Time of Note DATE: 03/24/17 TIME: 12:52 Assessment/Plan VTE Prophylaxis VTE Prophylaxis Intervention: heparin Lines/Catheters IV [facility]from [facility] Peripheral IV Assessment/Plan Problems: (1) Presence of coronary angioplasty implant and graft Status: Chronic Comment: This was placed over 24 years ago. He now has triple-vessel disease distal to where the LAD lesion was previously stented. Per verbal communications from Dr. Perera he is in need of open heart bypass surgery. (2) 3-vessel coronary artery disease Status: Chronic Comment: He had a perioperative end STEMI. He is stable at this time but is being brought into the hospital under the advice of cardiology for intervention more directly. Awaiting cardiothoracic surgical consultation. (3) Systolic dysfunction Status: Acute Comment: This is after the non-STEMI from January of this year (4) Other obesity due to excess calories Status: Chronic Comment: Noted. Calorie restriction diet (5) Obstructive sleep apnea Status: Chronic Comment: Noted. Nocturnal BiPAP (6) Testicular hypofunction Status: Chronic Comment: Noted. Until successfully postop no additional replacement therapy (7) Sensorineural hearing loss Status: Chronic Comment: Noted. 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 The urologist involved in this was Dr. David Matthews (9) Gastro-esophageal reflux disease without esophagitis Status: Chronic Comment: Noted. Continue PPI and elevate head of bed 30 at all times (10) Hyperlipidemia Status: Chronic Comment: Despite some intolerance to statins maintain low-dose statin therapy and his fish oil. Qualifiers: Hyperlipidemia type: pure hypercholesterolemia Qualified Code: E78.00 - Pure hypercholesterolemia HPI/ROS Admit Date/Time Admit Date/Time 03/24/2017 Hx of Present Illness 77-year-old male brought in electively for outpatient cardiac catheterization by Dr. Perera. Patient had been in his usual state of health with a remote history of a prior PCI and angioplasty more than 2 decades ago. In January of this year he had presented for total knee revision. Postoperatively had acute coronary syndrome non-ST elevation [place] which was successfully managed. He is now brought in for the above-mentioned cardiac catheterization. He is without symptoms including with his full physical therapy. This includes denial PND orthopnea palpitations chest pain pressure squeezing or any symptoms to the neck or lower jaw or out to the arms or back. ROS Please see results of coronary angiography as per Dr. Perera which shows a modestly decreased ejection fraction and three-vessel disease. (Per report verbal report from Dr. Perera) Constitutional: no complaints (No fevers chills or sweats) Eyes: no complaints ENT: no complaints Respiratory: no complaints Cardiovascular: no complaints (As above) Gastrointestinal: no complaints Genitourinary: other (Please note prior history of Phuong's gangrene special circumstances) Musculoskeletal: no complaints, other (Still some knee pain recuperating from the knee replacement) Skin: no complaints Neurologic: no complaints Endocrine: no complaints Lymphatic: no complaints PMH/Family/Social Past Medical History 1) obesity. 2) testicular hypofunction. 3) gastroesophageal reflux disease. 4 ) lumbar disc disease with sciatica. 5) tic douloureux.6) positive DANIELLE. 7) obstructive sleep apnea. 8) history of Phuong's gangrene. 9) organic heart disease-coronary artery disease-status post PCI in 1992. 10) diverticulosis coli. 11) internal hemorrhoids. 12) vitreous separation. 13) decreased hearing on the left Medical History: coronary artery disease Past Surgical History a) status post CEA and IOL OD November 12, 2016. B) status post PCI in 1992. C ) status post right knee arthroscopy. D) status post right total knee revision January 2017. He) status post penile prosthesis placement with later resection and formal debridement at Phuong's gangrene diagnosis. F) status post urethroplasty. G) status post CEA and IOL OS. h) status post right inguinal hernia repair.I) status post right total knee replacement January 2015 Past Surgical Hx: other Family History Significant Family History: heart disease, hypertension, other (cva) Social History Born in [place] and raised. [employer] and [employer]. to [employer] . Lives with his retired recently. Alcohol Use: none Smoking Status: Former smoker Drug Use: none Exam/Review of Systems Vital Signs Vitals Vital Signs Date Time Temp Pulse Resp B/P Pulse Ox O2 Delivery O2 Flow Rate FiO2 03/24/17 11:57 98.1 67 18 148/71 97 Room Air Exam Constitutional: alert, oriented Head: atraumatic, normocephalic Eyes: EOMI, PERRL, nl conjunctiva, nl lids, nl sclera ENMT: mucosa pink and moist, nl external ears & nose, nl lips & teeth, nl nasal mucosa & septum Neck: non-tender, supple Respiratory: clear to auscultation, normal air movement Cardiovascular: nl pulses, regular rate and rhythm Gastrointestinal: nl liver, spleen, non-tender, soft Genitourinary - Male: other (Status post splenectomy) Musculoskeletal: nl extremities to inspection, nl gait and stance Extremities: normal pulses Neurological: PATTERN SETTER II-XII intact, nl mental status, nl speech, nl strength Skin: nl turgor, rash or lesions Medications Medications Current Medications Sodium Chloride (1/2 NS) 1,000 ml @ 0 mls/hr Q0M IV ; Start 03/24/17 at 10:00; Stop 03/24/17 at 23:00 Diazepam (Valium) 5 mg OC PO ; Start 03/24/17 at 10:00; Stop 03/24/17 at 23:00 Famotidine (Pepcid) 20 mg OC PO ; Start 03/24/17 at 10:00; Stop 03/24/17 at 23: 00 Diphenhydramine HCl (Benadryl) 50 mg OC PO ; Start 03/24/17 at 10:00; Stop 03/24 at 23:00 Acetaminophen (Tylenol Tab) 650 mg Q4H PRN PO NON-CARDIAC PAIN LEVEL (1-3); Start 03/24/17 at 12:00 Morphine Sulfate (morphine) 2 mg Q2H PRN IV FOR NON CARDIAC PAIN (4-10); Start 03/24/17 at 12:00 Al Hydrox/Mg Hydrox/Simethicone (Mag-Al Plus) 30 ml Q4H PRN PO GASTROINTESTINAL UPSET; Start 03/24/17 at 12:00 Ondansetron HCl 4 mg 4 mg Q4H PRN IV NAUSEA AND/OR VOMITING; Start 03/24/17 at 12:00 Sodium Chloride (NS) 1,000 ml @ 75 mls/hr [id number] IV ; Start 03/24/17 at 11:44 ; Stop 03/24/17 at 16:43 Copies To: CC: DAVID MATTHEWS MD, JOSHUA A MD Mar 24, 2017 13:08
[2017-03-24] MEDS ORDERED: ACETYLCYSTEINE 600 MG CAP PO SCH (13:30)
[2017-03-24] MEDS ORDERED: METOPROLOL (XL) 25 MG TAB PO SCH (13:30)
[2017-03-24] MEDS ORDERED: BISACODYL (EC) 5 MG TAB PO PRN (13:30)
[2017-03-24] MEDS ORDERED: HYDROCODONE/APAP (5/325) TAB PO PRN (13:30)
[2017-03-24] MEDS ORDERED: FISH OIL 1,000 MG CAP PO SCH ×2 (13:30→21:00)
[2017-03-24] MEDS ORDERED: NACL 0.9% 3 ML SYG IV SCH (13:30)
[2017-03-24] MEDS ORDERED: DOCUSATE SODIUM 100 MG CAP PO PRN (13:30)
[2017-03-24] MEDS ORDERED: HEPARIN 5,000 UNIT/0.5 ML VIAL SC SCH (14:00)
[2017-03-24 14:32] LABS: ADD SCAN DIFF NO
[2017-03-24 14:33] LABS: BASOPHILS % 0.3 % (0.0-2.0); EOSINOPHILS # 0.2 10^3/ul (0.0-0.5); EOSINOPHILS % 3.2 % (0.0-7.0); HEMOGLOBIN 13.6 g/dl (14.0-18.0); LYMPHOCYTES # 1.8 10^3/ul (0.8-2.9); LYMPHOCYTES % 26.9 % (15.0-51.0); MEAN CORPUSCULAR HEMOGLOBIN 26.4 pg (29.0-33.0); MEAN CORPUSCULAR HGB CONC 32.4 g/dl (32.0-37.0); MEAN CORPUSCULAR VOLUME 81.6 fl (82.0-101.0); MEAN PLATELET VOLUME 10.5 fl (7.4-10.4); MONOCYTE # 0.6 10^3/ul (0.3-0.9); NEUTROPHILS % 60.4 % (39.0-77.0); PLATELET COUNT 207 10^3/UL (140-415); RED BLOOD COUNT 5.15 10^6/ul (4.70-6.10); RED CELL DISTRIBUTION WIDTH 14.6 % (11.5-14.5); WHITE BLOOD COUNT 6.6 10^3/ul (4.8-10.8)
[2017-03-24 14:47] LABS: INR 1.01; PROTIME 13.3 Sec (12.2-14.2)
[2017-03-24 14:50] LABS: CHOL/HDL RATIO 4.4 RATIO
[2017-03-24 14:55] LABS: CALCIUM 9.1 mg/dl (8.4-10.2); CREATININE 0.96 mg/dl (0.61-1.24); POTASSIUM 3.7 mmol/L (3.5-5.1)
[2017-03-24 15:36] LABS: PARTIAL THROMBOPLASTIN TIME 36.1 Sec (25.0-35.0)
[2017-03-24] MEDS: SOD CHLORIDE 0.9% 1,000 ML IV SCH ×2 (17:18→17:45)
[2017-03-24] MEDS: METOPROLOL (XL) 25 MG TAB PO SCH (17:30)
[2017-03-24] MEDS ORDERED: ATORVASTATIN 10 MG TAB PO SCH (21:00)
[2017-03-24] MEDS: METOCLOPRAMIDE 10 MG TAB PO SCH (21:13)
[2017-03-24] MEDS: ACETYLCYSTEINE 600 MG CAP PO SCH (21:14)
[2017-03-24] MEDS: HEPARIN 5,000 UNIT/0.5 ML VIAL SC SCH (21:19)
[2017-03-25 04:01] VITALS: PULSE 60
[2017-03-25] MEDS: HEPARIN 5,000 UNIT/0.5 ML VIAL SC SCH (05:42)
[2017-03-25 05:44] VITALS: BP 112/63; PULSE 72; RESP 18
[2017-03-25] MEDS ORDERED: PANTOPRAZOLE (EC) 40 MG TAB PO SCH (06:00)
[2017-03-25 08:26] VITALS: PULSE 65
--- NOTE | 2017-03-25 08:28 | PN ---
Date/Time of Note Date/Time of Note DATE: 03/25/17 TIME: 08:23 Assessment/Plan VTE Prophylaxis VTE Prophylaxis Intervention: heparin Lines/Catheters IV [facility] [place] Urinary Cath still in place: No Assessment/Plan Problems: (1) Hyperlipidemia Status: Chronic Comment: Remains on statin therapy. Continue treatment no medication complications from treatment Qualifiers: Hyperlipidemia type: pure hypercholesterolemia Qualified Code: E78.00 - Pure hypercholesterolemia (2) Gastro-esophageal reflux disease without esophagitis Status: Chronic Comment: Noted. Continue on PPI. (3) History of Phuong's gangrene Status: Chronic Comment: Noted. No specific intervention at this time (4) Sensorineural hearing loss Status: Chronic Comment: Noted. Keep this in mind and all communications with the patient Qualifiers: Laterality: left Contralateral hearing status: restricted hearing on contralateral side Qualified Code: H90.A22 - Sensorineural hearing loss (SNHL ) of left ear with restricted hearing of right ear (5) Testicular hypofunction Status: Chronic Comment: Noted. No replacement therapy at this time under these circumstances (6) Obstructive sleep apnea Status: Chronic Comment: Patient declines a CPAP device. (7) Other obesity due to excess calories Status: Chronic Comment: Calorie restriction diet (8) 3-vessel coronary artery disease Status: Chronic Comment: As per cardiology he needs to be seen and evaluated by the cardiothoracic surgeon. That is consultation will happen this morning. I have advised the patient's my personal opinion that surgery would be in his best interest. Patient will make a decision. If he is to be postponed for having any intervention until next week he can be discharged home and come back electively. Otherwise will go directly to intervention (9) Systolic dysfunction Status: Acute Comment: Noted and compensated Subjective 24 Hr Interval Summary Free Text/Dictation male lying in bed is quite nervous. No specific complaints outside of his anxiety Constitutional: no complaints (No fevers chills or sweats) Respiratory: no complaints (No cough wheezing or shortness of breath) Cardiovascular: no complaints (No chest pain PND orthopnea) Gastrointestinal: no complaints (No nausea or vomiting) Genitourinary: no complaints Exam/Review of Systems Vital Signs Vitals Vital Signs Date Time Temp Pulse Resp B/P Pulse Ox O2 Delivery O2 Flow Rate FiO2 03/25/17 05:44 98.4 72 18 112/63 94 Room Air Intake and Output 03/24/17 03/24/17 03/25/17 15:00 23:00 07:00 Intake Total 890 ml 400 ml Balance 890 ml 400 ml Exam Constitutional: alert, oriented Neck: non-tender, supple Respiratory: clear to auscultation, normal air movement Cardiovascular: nl pulses, regular rate and rhythm Results Result Diagram: 03/24/17 1353 03/24/17 1353 Results 24 hrs Laboratory Tests Test 03/24/17 13:53 White Blood Count 6.6 # Red Blood Count 5.15 # Hemoglobin 13.6 #L Hematocrit 42.0 # Mean Corpuscular Volume 81.6 L Mean Corpuscular Hemoglobin 26.4 L Mean Corpuscular Hemoglobin Concent 32.4 Red Cell Distribution Width 14.6 H Platelet Count 207 Mean Platelet Volume 10.5 H Neutrophils % 60.4 Lymphocytes % 26.9 Monocytes % 9.0 Eosinophils % 3.2 Basophils % 0.3 Nucleated Red Blood Cells % 0.0 Neutrophils # 4.0 Lymphocytes # 1.8 Monocytes # 0.6 Eosinophils # 0.2 Basophils # 0.0 Nucleated Red Blood Cells # 0.0 Prothrombin Time 13.3 Prothrombin Time Ratio 1.0 INR International Normalized Ratio 1.01 Activated Partial Thromboplast Time 36.1 H Sodium Level 141 Potassium Level 3.7 Chloride Level 102 Carbon Dioxide Level 27 Anion Gap 16 Blood Urea Nitrogen 21 H Creatinine 0.96 Glucose Level 98 Calcium Level 9.1 Triglycerides Level 171 H Cholesterol Level 174 LDL Cholesterol, Calculated 101 HDL Cholesterol 39 Cholesterol/HDL Ratio 4.4 Medications Medications Current Medications Morphine Sulfate (morphine) 2 mg Q2H PRN IV FOR NON CARDIAC PAIN (4-10); Start 03/24/17 at 12:00 Al Hydrox/Mg Hydrox/Simethicone (Mag-Al Plus) 30 ml Q4H PRN PO GASTROINTESTINAL UPSET; Start 03/24/17 at 12:00 Ondansetron HCl (Zofran Inj) 4 mg Q4H PRN IV NAUSEA AND/OR VOMITING; Start at 12:00 Acetaminophen (Tylenol Tab) 650 mg Q6H PRN PO PAIN LEVEL 1-3 OR FEVER; Start at 13:30 Acetaminophen/ Hydrocodone Bitart ([place] (5/325)) 1 tab Q6H PRN PO PAIN LEVEL 4 -6; Start 03/24/17 at 13:30 Docusate Sodium (Colace) 100 mg Q12H PRN PO CONSTIPATION; Start 03/24/17 at 13: 30 Bisacodyl (Dulcolax) 5 mg DAILY PRN PO CONSTIPATION; Start 03/24/17 at 13:30 Benazepril HCl (Lotensin) 5 mg DAILY PO ; Start 03/25/17 at 09:00 Metoclopramide HCl (Reglan) 10 mg TID PO Last administered on 03/24/17 21:13; Admin Dose 10 MG; Start 03/24/17 at 21:00 Pantoprazole (Protonix Tab) 40 mg DAILY@06 PO Last administered on 03/25/17 05 :37; Admin Dose 40 MG; Start 03/25/17 at 06:00 Atorvastatin Calcium (Lipitor) 10 mg HS PO Last administered on 03/24/17 21:12 ; Admin Dose 10 MG; Start 03/24/17 at 21:00 Acetylcysteine (Nac) 1,200 mg BID PO Last administered on 03/24/17 21:14; Admin Dose 1,200 MG; Start 03/24/17 at 21:00; Stop 03/27/17 at 20:59 Heparin Sodium (Porcine) (Heparin (5000 Units/0.5 ml)) 5,000 unit Q8 SC Last administered on 03/25/17 05:42; Admin Dose 5,000 UNIT; Start 03/24/17 at 22:00 Metoprolol Succinate (Toprol Xl) 25 mg DAILY PO ; Start 03/24/17 at 17:30 Fish Oil (Fish Oil) 2,000 mg BID PO Last administered on 03/24/17 21:13; Admin Dose 2,000 MG; Start 03/24/17 at 21:00 SINTIA GRUBER MD Mar 25, 2017 08:27
[2017-03-25] MEDS ORDERED: BENAZEPRIL 5 MG TAB PO SCH (09:00)
[2017-03-25] MEDS: METOPROLOL (XL) 25 MG TAB PO SCH (09:18)
[2017-03-25] MEDS: ACETYLCYSTEINE 600 MG CAP PO SCH (09:19)
[2017-03-25] MEDS: METOCLOPRAMIDE 10 MG TAB PO SCH (09:19)
--- NOTE | 2017-03-25 10:11 | RADRPT ---
Vent Rate: 67 bpm RR Interval: 0 msec [place] Interval: 228 msec QRS Duration: 120 msec QT Interval: 434 msec QTC Interval: 458 msec P-R-T Wenden: 46 - -53 - 58 degrees Sinus rhythm with sinus arrhythmia with 1st degree AV block Left axis deviation Septal infarct , age undetermined Abnormal ECG Electronically Signed By: Danny Powell [id number]
--- NOTE | 2017-03-25 10:26 | RADRPT ---
PROCEDURE: US Carotids. CLINICAL INDICATION: Preoperative evaluation for CABG TECHNIQUE: Multiple sonographic of the carotid arteries were obtained utilizing santana scale imaging . Color and Doppler imaging was performed. The images were reviewed on a PACS workstation. COMPARISON: No prior studies are available for comparison. FINDINGS: Location Right Left CCA 46 cm/sec 27 cm/sec Prox ICA 82 cm/sec 124 cm/sec Mid ICA 60 cm/sec 78 cm/sec Dist ICA 46 cm/sec 125 cm/sec ECA 135 cm/sec 97 cm/sec ICA/CCA 1.8 4.6 Antegrade flow is seen within the vertebral arteries bilaterally. Heavy focal atherosclerotic plaque is present at the right carotid bulb and proximal ICA without evidence of hemodynamically significa nt stenosis. Heavy atherosclerotic plaque is also present at the left carotid bulb and proximal ICA with elevated peak systolic velocity and significantly elevated ICA/CCA ratio consistent with great er than 70% hemodynamically significant stenosis. IMPRESSION: 1. Moderate to heavy bilateral atherosclerotic plaque, predominately at the carotid bulbs and proxim al ICAs, resulting in greater than 70% hemodynamically significant stenosis at the left carotid bulb /proximal ICA - validated velocity measurements with angiographic measurements, velocity criteria ar e extrapolated from diameter data as defined by the Society of Radiologists in Ultrasound Consensus Conference Radiology 2003; 229;340-346. This study does indirectly reference the measurement of the distal ICA diameter as the denominator for stenosis measurement. 2. Antegrade flow seen within the vertebral arteries bilaterally. SRU Consensus Conference Criteria for the Diagnosis of Carotid Artery Stenosis Degree of Stenosis, % ICA PSV, cm/sec Plaque Estimate, % ICA/CCA PSV Ratio Normal <125 None <2.0 <50 <125 <50 <2.0 50 69 125-230 >50 2.0-4.0 >70 but less than near occlusion >230 >50 <4.0 Near occlusion High, low, or undetectable Visible Variable Total occlusion Undetectable Visible, no detectable lumen Not applicable *Cartoid artery stenosis: santana-scale and Doppler US diagnosis. Society of Radiologists in Ultrasound Consensus Conference. Radiology 2003; 229: 340-346 RPTAT: JJ .Oliver Steward MD, Date Time Electronically viewed and signed by .Oliver Steward MD, on 03/25/2017 10:26 .A/
--- NOTE | 2017-03-25 10:28 | CONS ---
DATE OF ADMISSION: 03/24/2017 DATE OF CONSULTATION: 03/25/2017 TYPE OF CONSULTATION: Cardiovascular Surgical REQUESTING PHYSICIAN: Martin Rodriguez MD and Israel Perera MD DIAGNOSIS: Coronary artery disease. HISTORY OF PRESENT ILLNESS: The patient is a 77-year-old gentleman who is status post right total k nee replacement 01/2017, sustained myocardial infarction. He had no sequelae and was sent home. He was recently started on a beta kelly. A Lexiscan back in January demonstrated nonreversible perfus ion defect inferior and lateral muñoz. Of note, the patient is status post PTCA back in 1992. Othe r medical problems include hyperlipidemia, hypertension. Currently, the patient is totally asymptom atic. Ejection fraction 45% by stress echo. He denies history of diabetes, TB carcinoma, hepatitis or CVA. His triglycerides are elevated at 171, creatinine 0.96. He underwent cardiac catheterizat ion yesterday; however, the cath report is not definitive in that the patient's name is not on the a ctual films. The films, I did review, show ejection fraction of 45%, LAD 90% stenosis, circumflex 9 0% stenosis and 80% stenosis of the distal right coronary artery. ALLERGIES: 1. CEPHALEXIN. 2. GABAPENTIN. PREVIOUS OPERATIONS: Right total knee replacement. In 2005, he had urethroplasty. FAMILY HISTORY: Mother at age 51, myocardial infarction and father at age 59, CVA. SOCIAL HISTORY: Smoked from ages 17 to 40s. Alcohol consumption rare. REVIEW OF SYSTEMS: CONSTITUTIONAL: Denies fever, chills. He admits to weight loss from 265 to 235. EYES: He is status post cataract implants. Denies blurred vision. NEUROLOGIC: Denies syncope, seizures, CVA. ENT: Denies epistaxis. RESPIRATORY: Denies shortness of breath, cough, sputum production or hemoptysis. GASTROINTESTINAL: Denies peptic ulcer disease, biliary tract disease, hematemesis or melena. GENITOURINARY: Denies kidney stone, urinary tract infection, or hematuria. MUSCULOSKELETAL: Denies arthritis. SKIN: Denies rash. HEMATOLOGIC: Denies bleeding tendency. PHYSICAL EXAMINATION: VITAL SIGNS: Height 6 feet 2 inches, weight 235 pounds. He is afebrile. Blood pressure 130/80. HEENT: Atraumatic, normocephalic. Sclerae anicteric. Nose, mouth and throat: Fair dentition. NECK: Supple. No jugular venous distention. CHEST: Lung corrales clear to percussion and auscultation. CARDIAC: Regular rhythm, normal S1, S2. No cyanosis, clubbing or edema. ABDOMEN: Protuberant. Normal bowel sounds. Soft, no tenderness, mass or guarding. LYMPHATIC: No cervical or axillary adenopathy. EXTREMITIES: Status post right total knee replacement. NEUROLOGIC: Cranial nerves II through XII intact. Motor, sensory, cerebellar intact. IMPRESSION: 1. Coronary artery disease, triple-vessel, status post myocardial infarction in 1992 with percutane ous coronary intervention, and myocardial infarction in 01/2017 after right total knee replacement. 2. Obesity. 3. Previous smoker. 4. Hyperlipidemia 5. Hypertension. RECOMMENDATIONS: Carotid duplex scanning in preparation for intervention, PCI versus myocardial rev ascularization. Bypass surgery was explained to the patient in detail. Potential need for blood tr ansfusion was explained. Risks, benefits, alternatives were explained. Complications include but a re not limited to , bleeding, infection, myocardial infarction, severe brain damage and kidney failure requiring dialysis. All questions were answered. Currently, the patient is leaning towards the PCI approach. Dictated By: KURT PIPER/SOCORRO Conf#: [id number] DID#: [id number]
--- NOTE | 2017-03-25 11:13 | CONS ---
Date/Time of Note Date/Time of Note DATE: 03/25/17 TIME: 11:09 Assessment/Plan Assessment/Plan Additional Assessment/Plan 1. Non-ST elevation myocardial infarction in the postoperative period status post knee replacement revision- now s/p C - severe disease. Pt declined surgical intervention. Agrees to PCI with Dr. Perera - plan for early next week. Pt aware of critical disease - wants to go home - instructed to avoid physical activity that exerts, avoid driving, and call 911 if CP. Pt agrees. 2. Abnormal electrocardiogram with anteroseptal Q's and IVCD- no cp now. 3. Hypertension - well rx now. 4. History of a PTCA alone 1992. Now multivessel PCI needed. 5. Postoperative day #1, status post knee revision. 6. Dyslipidemia- on statin. Consultation Date/Type/Reason Admit Date/Time Mar 24, 2017 at 11:38 Initial Consult Date 24 HR Interval Summary Free Text/Dictation Pt declined surgical intervention. Agrees to PCI with Dr. Perera - plan for early next week. Pt aware of critical disease - wants to go home - instructed to avoid physical activity that exerts, avoid driving, and call 911 if CP. Pt agrees. ROS: No fever, no chills, no nausea, no vomiting, no diarrhea/constipation No recent weight changes No chest pain, no PND, no orthopnea No dizziness, blurred vision No thirst, no heat or cold intolerance Exam/Review of Systems Vital Signs Vitals Vital Signs Date Time Temp Pulse Resp B/P Pulse Ox O2 Delivery O2 Flow Rate FiO2 03/25/17 08:26 65 03/25/17 05:44 98.4 18 112/63 94 Room Air Intake and Output 03/24/17 03/24/17 03/25/17 15:00 23:00 07:00 Intake Total 890 ml 400 ml Balance 890 ml 400 ml Exam General: WN/WD/NAD, AOx 3 HEENT: Unicetric/atraumatic/EOMI (follows commands) NECK: JVD elevated, no thyromegaly Lymph: no lymphadenopathy HEART: regular with no S3, II/ systolic murmur at apex LUNGS: Coarse sounds ABD: soft, NT, ND, +BS : Intact Neuro: non focal SKIN: chronic changes EXT: trace edema Results Result Diagram: 03/24/17 1353 03/24/17 1353 Results 24 hrs Laboratory Tests Test 03/24/17 13:53 White Blood Count 6.6 # Red Blood Count 5.15 # Hemoglobin 13.6 #L Hematocrit 42.0 # Mean Corpuscular Volume 81.6 L Mean Corpuscular Hemoglobin 26.4 L Mean Corpuscular Hemoglobin Concent 32.4 Red Cell Distribution Width 14.6 H Platelet Count 207 Mean Platelet Volume 10.5 H Neutrophils % 60.4 Lymphocytes % 26.9 Monocytes % 9.0 Eosinophils % 3.2 Basophils % 0.3 Nucleated Red Blood Cells % 0.0 Neutrophils # 4.0 Lymphocytes # 1.8 Monocytes # 0.6 Eosinophils # 0.2 Basophils # 0.0 Nucleated Red Blood Cells # 0.0 Prothrombin Time 13.3 Prothrombin Time Ratio 1.0 INR International Normalized Ratio 1.01 Activated Partial Thromboplast Time 36.1 H Sodium Level 141 Potassium Level 3.7 Chloride Level 102 Carbon Dioxide Level 27 Anion Gap 16 Blood Urea Nitrogen 21 H Creatinine 0.96 Glucose Level 98 Calcium Level 9.1 Triglycerides Level 171 H Cholesterol Level 174 LDL Cholesterol, Calculated 101 HDL Cholesterol 39 Cholesterol/HDL Ratio 4.4 Medications Medications Current Medications Morphine Sulfate (morphine) 2 mg Q2H PRN IV FOR NON CARDIAC PAIN (4-10); Start 03/24/17 at 12:00 Al Hydrox/Mg Hydrox/Simethicone (Mag-Al Plus) 30 ml Q4H PRN PO GASTROINTESTINAL UPSET; Start 03/24/17 at 12:00 Ondansetron HCl (Zofran Inj) 4 mg Q4H PRN IV NAUSEA AND/OR VOMITING; Start at 12:00 Acetaminophen (Tylenol Tab) 650 mg Q6H PRN PO PAIN LEVEL 1-3 OR FEVER; Start at 13:30 Acetaminophen/ Hydrocodone Bitart ([place] (5/325)) 1 tab Q6H PRN PO PAIN LEVEL 4 -6; Start 03/24/17 at 13:30 Docusate Sodium (Colace) 100 mg Q12H PRN PO CONSTIPATION; Start 03/24/17 at 13: 30 Bisacodyl (Dulcolax) 5 mg DAILY PRN PO CONSTIPATION; Start 03/24/17 at 13:30 Benazepril HCl (Lotensin) 5 mg DAILY PO Last administered on 03/25/17 09:18; Admin Dose 5 MG; Start 03/25/17 at 09:00 Metoclopramide HCl (Reglan) 10 mg TID PO Last administered on 03/25/17 09:19; Admin Dose 10 MG; Start 03/24/17 at 21:00 Pantoprazole (Protonix Tab) 40 mg DAILY@06 PO Last administered on 03/25/17 05 :37; Admin Dose 40 MG; Start 03/25/17 at 06:00 Atorvastatin Calcium (Lipitor) 10 mg HS PO Last administered on 03/24/17 21:12 ; Admin Dose 10 MG; Start 03/24/17 at 21:00 Acetylcysteine (Nac) 1,200 mg BID PO Last administered on 03/25/17 09:19; Admin Dose 1,200 MG; Start 03/24/17 at 21:00; Stop 03/27/17 at 20:59 Heparin Sodium (Porcine) (Heparin (5000 Units/0.5 ml)) 5,000 unit Q8 SC Last administered on 03/25/17 05:42; Admin Dose 5,000 UNIT; Start 03/24/17 at 22:00 Metoprolol Succinate (Toprol Xl) 25 mg DAILY PO Last administered on 03/25/17 09:18; Admin Dose 25 MG; Start 03/24/17 at 17:30 FADI ESCOBEDO MD Mar 25, 2017 11:13
[2017-03-25 11:17] VITALS: BP 134/62; RESP 18
[2017-03-25 12:28] VITALS: PULSE 64
--- NOTE | 2017-03-25 13:21 | PDOCDIS ---
Discharge Instructions DIAGNOSIS Discharge Diagnosis Three-vessel CAD. Decreased EF. Status post NST MAIKOL January 2017. Obstructive sleep apnea. Obesity. CONDITION Patient Condition: Fair HOME CARE INSTRUCTIONS: Special Diet: Cardiac ACTIVITY: Activity Restrictions: Avoid heavy lifting No Sexual Activity Do not Drive Do not operate Machinery Do not operate Power Tool Avoid Heavy Housework FOLLOW UP/APPOINTMENTS Follow-up Plan Readmission with Dr. Perera on Tuesday, March 29, 2017 for angioplasties; follow -up Dr. Rodriguez in 3 weeks SINTIA RODRIGUEZ MD Mar 25, 2017 13:21
--- NOTE | 2017-03-25 13:26 | DS ---
Date/Time of Note Date/Time of Note DATE: 03/25/17 TIME: 13:22 Discharge Summary Admission/Discharge Info Admit Date/Time Mar 24, 2017 at 11:38 Discharge Date/Time 03/25/2017 Discharge Diagnosis Three-vessel CAD. Decreased EF. Status post NST MAIKOL January 2017. Obstructive sleep apnea. Obesity. Decreased hearing; testicular hypofunction; status post Phuong's gangrene surgery Patient Condition: Fair Consults Cardiothoracic surgery/Dr. Velazco; cardiology Dr. Perera/[place] Procedures Left heart catheterization Hx of Present Illness 77-year-old male brought in electively for outpatient cardiac catheterization by Dr. Perera. Patient had been in his usual state of health with a remote history of a prior PCI and angioplasty more than 2 decades ago. In January of this year he had presented for total knee revision. Postoperatively had acute coronary syndrome non-ST elevation [place] which was successfully managed. He is now brought in for the above-mentioned cardiac catheterization. He is without symptoms including with his full physical therapy. This includes denial PND orthopnea palpitations chest pain pressure squeezing or any symptoms to the neck or lower jaw or out to the arms or back. Hospital Course 77-year-old male status post left heart catheterization. He had had a non-ST [place] post knee replacement in January 2017. Post recovery he did well and has been managed as an outpatient. He had been entirely asymptomatic on limited activities. He is brought in electively and had left heart catheterization which demonstrated patency of his old PCI from 1992 but 3 new lesions. Given the decreased ejection fraction was recommended in this nondiabetic to have open heart bypass surgery. His alternative backup plan will be coronary angioplasties. The patient met with cardiothoracic surgery Dr. Velazco and has opted on his own based on full information and knowledge and consent with explanations from Dr. Trever akhtar myself and Dr. Velazco to proceed with angioplasty electively. This is scheduled for Wednesday, March 29, 2017. In the meantime given the patient's stability he will be discharged home follow-up electively. He has activity restrictions and is not to drive. He has no known communicable diseases his rehabilitation potential is fair. Home Meds Reported Medications Aspirin* (Aspirin*) 325 Mg Tablet, 325 MG PO DAILY, TAB 03/24/17 Simvastatin (Simvastatin) 10 Mg Tablet, 10 MG PO QHS, #30 TAB 03/24/17 Benazepril Hcl* (Benazepril Hcl*) 5 Mg Tablet, 5 MG PO DAILY, #30 TAB 03/24/17 Metoprolol Succinate* (Toprol XL*) 25 Mg Tab.sr.24h, 25 MG PO DAILY, #30 TAB 03/24/17 Metoclopramide Hcl* (Metoclopramide Hcl*) 10 Mg Tablet, 10 MG PO TID, TAB 01/13/17 Omeprazole* (Omeprazole*) 20 Mg Capsule.dr, 20 MG PO DAILY, #30 CAP 01/13/17 Discontinued Scripts Fish Oil* (Fish Oil*) 1,000 Mg Cap, 2000 MG PO BID, #30 CAP Prov:NAVJOT SINGH MD 02/23/15 Atorvastatin Calcium (Atorvastatin Calcium) 10 Mg Tab, 10 MG PO HS, #30 TAB 3 Refills Prov:NAVJOT SINGH MD 02/23/15 Primary Care Provider Martin Rodriguez MD Time spent on discharge: > 30 minutes Pending Labs Laboratory Tests Test 03/24/17 13:53 White Blood Count 6.610^3/ul (4.8-10.8) Red Blood Count 5.1510^6/ul (4.70-6.10) Hemoglobin 13.6g/dl (14.0-18.0) Hematocrit 42.0% (42.0-52.0) Mean Corpuscular Volume 81.6fl (82.0-101.0) Mean Corpuscular Hemoglobin 26.4pg (29.0-33.0) Mean Corpuscular Hemoglobin Concent 32.4g/dl (32.0-37.0) Red Cell Distribution Width 14.6% (11.5-14.5) Platelet Count 16458^3/UL (140-415) Mean Platelet Volume 10.5fl (7.4-10.4) Neutrophils % 60.4% (39.0-77.0) Lymphocytes % 26.9% (15.0-51.0) Monocytes % 9.0% (0.0-11.0) Eosinophils % 3.2% (0.0-7.0) Basophils % 0.3% (0.0-2.0) Nucleated Red Blood Cells % 0.0/100WBC (0.0-0.0) Neutrophils # 4.010^3/ul (1.6-7.5) Lymphocytes # 1.810^3/ul (0.8-2.9) Monocytes # 0.610^3/ul (0.3-0.9) Eosinophils # 0.210^3/ul (0.0-0.5) Basophils # 0.010^3/ul (0.0-0.1) Nucleated Red Blood Cells # 0.010^3/ul (0.0-0.0) Prothrombin Time 13.3Sec (12.2-14.2) Prothrombin Time Ratio 1.0 INR International Normalized Ratio 1.01 Activated Partial Thromboplast Time 36.1Sec (25.0-35.0) Sodium Level 141mmol/L (135-144) Potassium Level 3.7mmol/L (3.5-5.1) Chloride Level 102mmol/L (97-110) Carbon Dioxide Level 27mmol/L (21-31) Anion Gap 16 (8-16) Blood Urea Nitrogen 21mg/dl (7-20) Creatinine 0.96mg/dl (0.61-1.24) Glucose Level 98mg/dl (70-220) Calcium Level 9.1mg/dl (8.4-10.2) Triglycerides Level 171mg/dl (0-149) Cholesterol Level 174mg/dl (100-200) LDL Cholesterol, Calculated 101mg/dl HDL Cholesterol 39mg/dl (31-75) Cholesterol/HDL Ratio 4.4RATIO Copies To: CC: KERLINE PERERA JOSHUA A MD Mar 25, 2017 13:26
== END 2017-03-25 15:45 | disposition home or self-care (01) | DRG 287 ==
LOC: SDS 08:31 → TEL 11:38 → SDS 11:44 → TEL 20:42
PROVIDERS: ADMIT Internal Medicine; ATTEND Internal Medicine
PROC: B211YZZ Fluoroscopy of Multiple Coronary Arteries using Other Contrast (ICD-10-PCS; 2017-03-24)
PROC: B215YZZ Fluoroscopy of Left Heart using Other Contrast (ICD-10-PCS; 2017-03-24)
PROC: 4A023N7 Measurement of Cardiac Sampling and Pressure, Left Heart, Percutaneous Approach (ICD-10-PCS; principal; 2017-03-24 10:40)
DX: I25.10 Atherosclerotic heart disease of native coronary artery without angina pectoris (principal); I11.0 Hypertensive heart disease with heart failure; I50.22 Chronic systolic (congestive) heart failure; H90.A22 Sensorineural hearing loss, unilateral, left ear, with restricted hearing on the contralateral side; E66.8 Other obesity; Z68.30 Body mass index [BMI] 30.0-30.9, adult; G47.33 Obstructive sleep apnea (adult) (pediatric); E29.1 Testicular hypofunction; K21.9 Gastro-esophageal reflux disease without esophagitis; E78.00 Pure hypercholesterolemia, unspecified; M51.16 Intervertebral disc disorders with radiculopathy, lumbar region; Z96.651 Presence of right artificial knee joint; Z95.5 Presence of coronary angioplasty implant and graft; Z87.891 Personal history of nicotine dependence; Z82.3 Family history of stroke; I25.2 Old myocardial infarction; Z88.6 Allergy status to analgesic agent; Z88.1 Allergy status to other antibiotic agents; Z87.2 Personal history of diseases of the skin and subcutaneous tissue; Z86.31 Personal history of diabetic foot ulcer
CPT/HCPCS: 71010; 80048; 80061; 85025; 85610; 85730; 93005; 93458; 93880; C1769; C1887; J1644; J2250; J3010; Q9967

== ENCOUNTER 2017-03-30 08:41 | Observation (INO) | payer MEDICARE, OTHER ==
[2017-03-30] VITALS (38 sets, daily range): BP systolic 106–168; BP diastolic 55–91; PULSE 50–69; RESP 16–24; Ht 188 cm; Wt 107.6 kg
[~2017-03-30] VITALS: Ht 188 cm; Wt 107.6 kg
[~2017-03-30 08:41] MED LIST changes: +ASPI325T4 PO; -ATOR10TA65 PO; +BENA5TAB2 PO; +METO25TA7 PO; -OMEG-135 PO; +ZOC10 PO
[2017-03-30] MEDS ORDERED: SOD CHLORIDE 0.45% 1,000 ML IV SCH (09:30)
[2017-03-30] MEDS ORDERED: DIPHENHYDRAMINE 50 MG CAP PO SCH (09:30)
[2017-03-30] MEDS ORDERED: DIAZEPAM 5 MG TAB PO SCH (09:30)
[2017-03-30] MEDS ORDERED: FAMOTIDINE 20 MG TAB PO SCH (09:30)
[2017-03-30 09:53] LABS: ADD SCAN DIFF NO
[2017-03-30 10:08] LABS: BASOPHILS % 0.3 % (0.0-2.0); EOSINOPHILS # 0.3 10^3/ul (0.0-0.5); EOSINOPHILS % 4.9 % (0.0-7.0); HEMATOCRIT 45.1 % (42.0-52.0); HEMOGLOBIN 14.4 g/dl (14.0-18.0); LYMPHOCYTES # 1.5 10^3/ul (0.8-2.9); LYMPHOCYTES % 23.1 % (15.0-51.0); MEAN CORPUSCULAR HEMOGLOBIN 26.4 pg (29.0-33.0); MEAN CORPUSCULAR HGB CONC 31.9 g/dl (32.0-37.0); MEAN CORPUSCULAR VOLUME 82.6 fl (82.0-101.0); MEAN PLATELET VOLUME 10.6 fl (7.4-10.4); MONOCYTE # 0.7 10^3/ul (0.3-0.9); MONOCYTES % 10.8 % (0.0-11.0); NEUTROPHIL # 3.8 10^3/ul (1.6-7.5); NEUTROPHILS % 60.6 % (39.0-77.0); PLATELET COUNT 187 10^3/UL (140-415); RED BLOOD COUNT 5.46 10^6/ul (4.70-6.10); RED CELL DISTRIBUTION WIDTH 15.1 % (11.5-14.5); WHITE BLOOD COUNT 6.3 10^3/ul (4.8-10.8)
[2017-03-30 10:19] LABS: INR 0.95; PARTIAL THROMBOPLASTIN TIME 29.5 Sec (25.0-35.0); PROTIME 12.7 Sec (12.2-14.2)
[2017-03-30 10:28] LABS: CHOL/HDL RATIO 4.5 RATIO
[2017-03-30 10:30] LABS: CALCIUM 9.4 mg/dl (8.4-10.2); CREATININE 1.06 mg/dl (0.61-1.24); POTASSIUM 3.8 mmol/L (3.5-5.1)
--- NOTE | 2017-03-30 10:35 | RADRPT ---
Vent Rate: 63 bpm RR Interval: 0 msec [place] Interval: 238 msec QRS Duration: 120 msec QT Interval: 438 msec QTC Interval: 448 msec P-R-T [place]: 50 - -57 - 68 degrees Sinus rhythm with marked sinus arrhythmia with 1st degree AV block Left axis deviation Septal infarct , age undetermined Abnormal ECG Electronically Signed By: Pepe Garcia [id number]
[2017-03-30] MEDS ORDERED: HEPARIN 1000 UNITS/ML 10 ML INJ ONE (11:12)
[2017-03-30] MEDS ORDERED: FENTAnyl 50 MCG/ML VIAL ONE (11:12)
[2017-03-30] MEDS ORDERED: MIDAZOLAM 1 MG/ML 2 ML INJ ONE (11:12)
[2017-03-30] MEDS ORDERED: IODIXANOL LOCM 100 ML BTL ONE ×3 (11:12→12:45)
[2017-03-30] MEDS ORDERED: LIDOCAINE 1% (MDV) 20 ML INJ ONE (11:12)
[2017-03-30] MEDS ORDERED: VERAPAMIL 5 MG INJ ONE (11:12)
[2017-03-30] MEDS ORDERED: NITROGLYCERIN (IC) 100 MCG/ML INJ ONE (11:13)
[2017-03-30] MEDS ORDERED: BIVALIRUDIN 250MG /NS 50 ML 50 ML IVPB ONE ×2 (12:17→12:40)
[2017-03-30] MEDS ORDERED: TICAGRELOR 90 MG TABLET ONE (13:07)
[2017-03-30] MEDS ORDERED: SOD CHLORIDE 0.9% 1,000 ML IV SCH (13:08)
[2017-03-30] MEDS ORDERED: ASPIRIN 325 MG TAB ONE (13:08)
--- NOTE | 2017-03-30 13:20 | OPR ---
Date/Time of Note Date/Time of Note DATE: 03/30/17 TIME: 13:14 Operative Report Procedure Date: Mar 30, 2017 Preoperative Diagnosis obstructive cad Postoperative Diagnosis successful PTCA/stent x 1 to LCX and x 1 to LAD Operation Performed LH, PTCA/stent Surgeon: KERLINE LOZADA Anesthesia: other (moderate concious sedation) Estimated Blood Loss: 0 - 10 ml's Specimens none Complications: None Pt Condition Post Procedure: stable Disposition: PACU Indications Nstemi/obstructive cad Operative\Procedure Findings 95% LAD s/p successful PTCA/stent x 1 with AFTAB synergy 3.0x 20 mm 90% LCX s/p successful PTCA/stent x 1 with AFTAB synergy 2.5 x 20 mm Procedure Description LMN cannulated with Q 3.0 6 latvian guide, BMW wire in LAD lesion, 2.5 x 12 mm balloon, 3.0x 20mm stent x 1 to LAD 2.5 x12 MM balloon in LCX with BMW wire and 2.5x 20 mm AFTAB synergy 1.25x 12mm balloon and Supervisor Fertilizer 50 wire in OM KERLINE LOZADA Mar 30, 2017 13:20
[2017-03-30] MEDS ORDERED: ONDANSETRON 4 MG INJ IV PRN (13:30)
[2017-03-30] MEDS ORDERED: morphine 2 MG INJ IV PRN (13:30)
[2017-03-30] MEDS ORDERED: OXYCODONE/ACETAMINOPHEN (5/325) TAB PO PRN (13:30)
[2017-03-30] MEDS ORDERED: ACETAMINOPHEN 325 MG TAB PO PRN (13:30)
[2017-03-30] MEDS ORDERED: ZOLPIDEM 5 MG TAB PO PRN (13:30)
[2017-03-30] MEDS ORDERED: AL HYDROX/MG HYDROX/SIMETH 30 ML CUP PO PRN (13:30)
--- NOTE | 2017-03-30 17:54 | HP ---
Date/Time of Note Date/Time of Note DATE: 03/30/17 TIME: 17:47 Assessment/Plan VTE Prophylaxis VTE Prophylaxis Intervention: LMWH Lines/Catheters IV [facility]from [facility] Saline Lock Assessment/Plan Problems: (1) Systolic dysfunction Status: Acute Comment: Noted and stable. He is on low-dose CEASAR inhibitor with beta- blockade. He may actually have some degree of improvement after the angioplasty , we will see (2) 3-vessel coronary artery disease Status: Chronic Comment: He is now status post angioplasty 2 separate vessels. This appears to have gone without complication or untoward reaction. Please now give him Mucomyst to the angiographic dye load per (3) Hyperlipidemia Status: Chronic Comment: Continue treatment with statin therapy Qualifiers: Hyperlipidemia type: pure hypercholesterolemia Qualified Code: E78.00 - Pure hypercholesterolemia (4) Gastro-esophageal reflux disease without esophagitis Status: Chronic Comment: Stable continue appropriate antireflux therapy (5) Sensorineural hearing loss Status: Chronic Comment: Noted attempt to compensate for patient Qualifiers: Laterality: bilateral Qualified Code: H90.3 - Sensorineural hearing loss ( SNHL) of both ears (6) Testicular hypofunction Status: Chronic Comment: Noted no indication to treat at this moment (7) Obstructive sleep apnea Status: Chronic Comment: Nocturnal BiPAP (8) Other obesity due to excess calories Status: Chronic Comment: Calorie restriction diet (9) Sciatica associated with disorder of lumbar spine Status: Chronic Comment: Noted no intervention at this moment Assessment/Plan Status post PCI with stenting on 2 vessels. He is on dual antiplatelet therapy as per Dr. Perera. Continue aggressive intervention. Possible return for third angioplasty in 2-3 weeks HPI/ROS Admit Date/Time Admit Date/Time 03/30/2017 Hx of Present Illness 77-year-old gentleman with three-vessel coronary disease and modest decreased ejection fraction. He had been reviewed for possible open heart bypass surgery and opted to decline this and as such she is now going to undergo aggressive angioplastic intervention. He has now had angiography and angioplasty of the LAD and circumflex lesions. He has had stents placed. He is seen in recovery postop and doing well. 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 Medical History: coronary artery disease, high cholesterol, hypertension Past Surgical History Past Surgical Hx: noncontributory, other Family History Significant Family History: heart disease, diabetes, hypertension Social History for 40+ years recently retired lives with spouse Alcohol Use: occasionally Smoking Status: Former smoker Drug Use: none Exam/Review of Systems Vital Signs Vitals Vital Signs Date Time Temp Pulse Resp B/P Pulse Ox O2 Delivery O2 Flow Rate FiO2 03/30/17 16:55 17 128/82 97 Room Air 03/30/17 16:48 52 03/30/17 14:45 98.2 Exam Constitutional: alert, oriented Head: atraumatic, normocephalic Eyes: EOMI, nl conjunctiva, nl lids, nl sclera ENMT: mucosa pink and moist, nl external ears & nose, nl lips & teeth, nl nasal mucosa & septum Neck: non-tender, supple Respiratory: clear to auscultation, normal air movement Cardiovascular: nl pulses, regular rate and rhythm Gastrointestinal: nl liver, spleen, non-tender, soft Genitourinary - Male: other (Status post penectomy for Phuong's gangrene) Musculoskeletal: nl extremities to inspection, nl gait and stance Neurological: LICENSING WORKER II-XII intact, nl mental status, nl speech, nl strength Labs Result Diagram: 03/30/1793403/30/17 0935 Medications Medications Current Medications Diazepam (Valium) 5 mg OC PO ; Start 03/30/17 at 09:30; Stop 03/30/17 at 22:22 Famotidine (Pepcid) 20 mg OC PO ; Start 03/30/17 at 09:30; Stop 03/30/17 at 22: 22 Diphenhydramine HCl (Benadryl) 50 mg OC PO ; Start 03/30/17 at 09:30; Stop 03/30 at 22:22 Aspirin (Halfprin) 81 mg DAILY PO ; Start 03/31/17 at 09:00 Ticagrelor (Brilinta) 90 mg BID PO ; Start 03/30/17 at 21:00 Acetaminophen (Tylenol Tab) 650 mg Q4H PRN PO NON-CARDIAC PAIN LEVEL 1-3; Start 03/30/17 at 13:30 Oxycodone/ Acetaminophen (Percocet (5/ 325)) 1 tab Q4H PRN PO REPORTED NON- CARDIAC PAIN 4-7; Start 03/30/17 at 13:30 Morphine Sulfate (morphine) 1 mg Q1H PRN IV PAIN NOT RELIEVED BY OTHERS; Start 03/30/17 at 13:30 Al Hydrox/Mg Hydrox/Simethicone (Mag-Al Plus) 30 ml Q4H PRN PO GASTROINTESTINAL UPSET; Start 03/30/17 at 13:30 Ondansetron HCl 4 mg 4 mg Q4H PRN IV NAUSEA AND/OR VOMITING; Start 03/30/17 at 13:30 Sodium Chloride (NS) 1,000 ml @ 75 mls/hr [id number] IV ; Start 03/30/17 at 13:08 ; Stop 03/31/17 at 02:27 Lorazepam (Ativan) 0.5 mg Q6H PRN IV ANXIETY; Start 03/30/17 at 18:00; Status UNV Ondansetron HCl (Zofran Tab) 4 mg Q6H PRN PO NAUSEA AND/OR VOMITING; Start at 18:00; Status UNV Acetaminophen/ Hydrocodone Bitart ([place] (5/325)) 1 tab Q6H PRN PO PAIN LEVEL 4 -6; Start 03/30/17 at 18:00; Status UNV Docusate Sodium (Colace) 100 mg Q12H PRN PO CONSTIPATION; Start 03/30/17 at 18: 00; Status UNV Magnesium Hydroxide (Milk Of Mag) 30 ml DAILY PRN PO CONSTIPATION; Start at 18:00; Status UNV Famotidine (Pepcid) 20 mg Q12 PO ; Start 03/30/17 at 21:00; Status UNV Benazepril HCl (Lotensin) 5 mg DAILY PO ; Start 03/31/17 at 09:00; Status UNV Metoclopramide HCl (Reglan) 10 mg TID PO ; Start 03/30/17 at 21:00; Status UNV Metoprolol Succinate (Toprol Xl) 25 mg DAILY PO ; Start 03/31/17 at 09:00; Status UNV SINTIA GRUBER MD Mar 30, 2017 17:54
[2017-03-30] MEDS ORDERED: NACL 0.9% 3 ML SYG IV SCH (18:00)
[2017-03-30] MEDS ORDERED: DOCUSATE SODIUM 100 MG CAP PO PRN (18:00)
[2017-03-30] MEDS ORDERED: LORAZEPAM 2 MG INJ IV PRN (18:00)
[2017-03-30] MEDS ORDERED: ONDANSETRON 4 MG TAB PO PRN (18:00)
[2017-03-30] MEDS ORDERED: HYDROCODONE/APAP (5/325) TAB PO PRN (18:00)
[2017-03-30] MEDS ORDERED: MAGNESIUM HYDROXIDE 30ML CUP PO PRN (18:00)
[2017-03-30] MEDS: METOCLOPRAMIDE 10 MG TAB PO SCH ×2 (18:03→23:21)
[2017-03-30] MEDS ORDERED: METOCLOPRAMIDE 10 MG TAB PO ONE (21:00)
[2017-03-30] MEDS ORDERED: METOCLOPRAMIDE 10 MG TAB PO SCH (21:00)
[2017-03-30] MEDS ORDERED: ATORVASTATIN 10 MG TAB PO SCH (21:00)
[2017-03-30] MEDS: FAMOTIDINE 20 MG TAB PO SCH (21:40)
[2017-03-30] MEDS: TICAGRELOR 90 MG TABLET PO SCH (21:40)
[2017-03-30] MEDS: ACETYLCYSTEINE 600 MG CAP PO SCH (21:41)
[2017-03-30] MEDS ORDERED: hydrALAzine 20 MG INJ IV PRN (22:30)
[2017-03-31] VITALS (7 sets, daily range): BP systolic 128–136; BP diastolic 63–68; PULSE 49–82; RESP 19
[2017-03-31] MEDS: METOCLOPRAMIDE 10 MG TAB PO SCH ×2 (08:37→13:00)
[2017-03-31] MEDS: FAMOTIDINE 20 MG TAB PO SCH (08:37)
[2017-03-31] MEDS: TICAGRELOR 90 MG TABLET PO SCH (08:39)
[2017-03-31] MEDS: ACETYLCYSTEINE 600 MG CAP PO SCH (08:44)
[2017-03-31] MEDS ORDERED: BENAZEPRIL 5 MG TAB PO SCH (09:00)
[2017-03-31] MEDS ORDERED: ASPIRIN (EC) 81 MG TAB PO SCH (09:00)
[2017-03-31] MEDS ORDERED: METOPROLOL (XL) 25 MG TAB PO SCH (09:00)
--- NOTE | 2017-03-31 09:44 | PN ---
Date/Time of Note Date/Time of Note DATE: 03/31/17 TIME: 09:39 Assessment/Plan VTE Prophylaxis VTE Prophylaxis Intervention: heparin Lines/Catheters [facility] Saline Lock Assessment/Plan Problems: (1) Hyperlipidemia Status: Chronic Comment: Continue on statin therapy which he is tolerating Qualifiers: Hyperlipidemia type: pure hypercholesterolemia Qualified Code: E78.00 - Pure hypercholesterolemia (2) Gastro-esophageal reflux disease without esophagitis Status: Chronic Comment: Patient is doing well with elevation head of bed and as needed medicines. He is now stable from the standpoint (3) Atherosclerotic heart disease of [place] coronary artery without angina pectoris Status: Chronic Comment: He has not had 2 out of 3 coronary artery was balloon angioplastied with stenting. He has done well overnight. He is now stable for discharge from medical standpoint. The only thing we are waiting as his renal function. The lab was 4-1/2 hours late drawing his blood. Qualifiers: [place] vs. transplanted heart: [place] heart Qualified Code: I25.10 - Atherosclerosis of [place] coronary artery of [place] heart without angina pectoris (4) Sensorineural hearing loss Status: Chronic Comment: Noted. Qualifiers: Laterality: bilateral Qualified Code: H90.3 - Sensorineural hearing loss ( SNHL) of both ears (5) Testicular hypofunction Status: Chronic Comment: He can resume replacement therapy for this in 3 months. (6) Obstructive sleep apnea Status: Chronic Comment: Patient is stable will be on CPAP at home (7) Other obesity due to excess calories Status: Chronic Comment: Re-counseled (8) 3-vessel coronary artery disease Status: Chronic Comment: He has had his angioplasties after he had declined to have CABG proceed procedure performed. He is mentally competent (9) Systolic dysfunction Status: Acute Comment: Continue beta-blockade and CEASAR inhibitor well compensated (10) Presence of coronary angioplasty implant and graft Status: Chronic Comment: He has his old stent and now has 2 new stents. He is gone through this and there does not appear to be any complications or issues. Subjective 24 Hr Interval Summary Free Text/Dictation Patient is without symptoms at this time. Specifically denies any cardiac symptoms. Overall feeling well Constitutional: no complaints (Denies fevers chills or sweats) Respiratory: no complaints (No cough no shortness of breath no wheezing) Cardiovascular: no complaints (No chest pain no orthopnea no PND no palpitations) Gastrointestinal: no complaints Genitourinary: no complaints Exam/Review of Systems Vital Signs Vitals Vital Signs Date Time Temp Pulse Resp B/P Pulse Ox O2 Delivery O2 Flow Rate FiO2 03/31/17 08:18 57 03/31/17 07:06 98.2 19 134/67 97 03/30/17 19:00 Room Air Intake and Output 03/30/17 03/30/17 03/31/17 15:00 23:00 07:00 Intake Total 500 ml Balance 500 ml Exam Constitutional: alert, oriented Neck: non-tender, supple Respiratory: clear to auscultation, normal air movement Cardiovascular: nl pulses, regular rate and rhythm Gastrointestinal: nl liver, spleen, non-tender, soft Results Result Diagram: 03/30/17 0935 03/30/17 0935 Medications Medications Current Medications Aspirin (Halfprin) 81 mg DAILY PO Last administered on 03/31/17 08:37; Admin Dose 81 MG; Start 03/31/17 at 09:00 Ticagrelor (Brilinta) 90 mg BID PO Last administered on 03/31/17 08:39; Admin Dose 90 MG; Start 03/30/17 at 21:00 Acetaminophen (Tylenol Tab) 650 mg Q4H PRN PO NON-CARDIAC PAIN LEVEL 1-3; Start 03/30/17 at 13:30 Oxycodone/ Acetaminophen (Percocet (5/ 325)) 1 tab Q4H PRN PO REPORTED NON- CARDIAC PAIN 4-7; Start 03/30/17 at 13:30 Morphine Sulfate (morphine) 1 mg Q1H PRN IV PAIN NOT RELIEVED BY OTHERS; Start 03/30/17 at 13:30 Al Hydrox/Mg Hydrox/Simethicone (Mag-Al Plus) 30 ml Q4H PRN PO GASTROINTESTINAL UPSET; Start 03/30/17 at 13:30 Ondansetron HCl (Zofran Inj) 4 mg Q4H PRN IV NAUSEA AND/OR VOMITING; Start at 13:30 Lorazepam (Ativan) 0.5 mg Q6H PRN IV ANXIETY; Start 03/30/17 at 18:00 Ondansetron HCl (Zofran Tab) 4 mg Q6H PRN PO NAUSEA AND/OR VOMITING; Start at 18:00 Acetaminophen/ Hydrocodone Bitart ([place] (5/325)) 1 tab Q6H PRN PO PAIN LEVEL 4 -6; Start 03/30/17 at 18:00 Docusate Sodium (Colace) 100 mg Q12H PRN PO CONSTIPATION; Start 03/30/17 at 18: 00 Magnesium Hydroxide (Milk Of Mag) 30 ml DAILY PRN PO CONSTIPATION; Start at 18:00 Famotidine (Pepcid) 20 mg Q12 PO Last administered on 03/31/17 08:37; Admin Dose 20 MG; Start 03/30/17 at 21:00 Benazepril HCl (Lotensin) 5 mg DAILY PO Last administered on 03/31/17 08:38; Admin Dose 5 MG; Start 03/31/17 at 09:00 Metoprolol Succinate (Toprol Xl) 25 mg DAILY PO Last administered on 03/31/17 08:37; Admin Dose 25 MG; Start 03/31/17 at 09:00 Acetylcysteine (Nac) 1,200 mg BID PO Last administered on 03/30/17 21:41; Admin Dose 1,200 MG; Start 03/30/17 at 21:00; Stop 04/02/17 at 20:59 Atorvastatin Calcium (Lipitor) 10 mg HS PO Last administered on 03/30/17 21:40 ; Admin Dose 10 MG; Start 03/30/17 at 21:00 Metoclopramide HCl (Reglan) 10 mg TID PO Last administered on 03/31/17 08:37; Admin Dose 10 MG; Start 03/30/17 at 17:48 Hydralazine HCl (Apresoline) 10 mg Q4H PRN IV ELEVATED BLOOD PRESSURE; Start at 22:30 SINTIA GRUBER MD Mar 31, 2017 09:44
--- NOTE | 2017-03-31 09:46 | PDOCDIS ---
Discharge Instructions DIAGNOSIS Discharge Diagnosis Three-vessel coronary artery disease; systolic CHF; hypertension; hyperlipidemia ; obstructive sleep apnea; testicular hypofunction; obesity; Mnire's disease; tic douloureux CONDITION Patient Condition: Fair HOME CARE INSTRUCTIONS: Special Diet: Carb controlled diet ACTIVITY: Activity Restrictions: Slowly Increase Activity Do not operate Machinery Do not operate Power Tool FOLLOW UP/APPOINTMENTS Follow-up Plan Follow-up with cardiology/Dr. Perera in 2 weeks; follow-up with primary care physician Dr. Rodriguez in 3 weeks. SINTIA RODRIGUEZ MD Mar 31, 2017 09:46
[2017-03-31] MEDS ORDERED: TICA90TA PO (09:50)
[2017-03-31 09:52] LABS: ADD SCAN DIFF NO
[2017-03-31 09:53] LABS: BASOPHILS % 0.1 % (0.0-2.0); EOSINOPHILS # 0.2 10^3/ul (0.0-0.5); EOSINOPHILS % 3.1 % (0.0-7.0); HEMATOCRIT 39.8 % (42.0-52.0); HEMOGLOBIN 13.4 g/dl (14.0-18.0); LYMPHOCYTES % 15.3 % (15.0-51.0); MEAN CORPUSCULAR HEMOGLOBIN 27.3 pg (29.0-33.0); MEAN CORPUSCULAR HGB CONC 33.7 g/dl (32.0-37.0); MEAN CORPUSCULAR VOLUME 81.1 fl (82.0-101.0); MEAN PLATELET VOLUME 10.4 fl (7.4-10.4); MONOCYTE # 0.6 10^3/ul (0.3-0.9); MONOCYTES % 9.3 % (0.0-11.0); NEUTROPHIL # 4.9 10^3/ul (1.6-7.5); NEUTROPHILS % 71.9 % (39.0-77.0); PLATELET COUNT 162 10^3/UL (140-415); RED BLOOD COUNT 4.91 10^6/ul (4.70-6.10); RED CELL DISTRIBUTION WIDTH 14.7 % (11.5-14.5); WHITE BLOOD COUNT 6.8 10^3/ul (4.8-10.8)
--- NOTE | 2017-03-31 10:36 | RADRPT ---
Vent Rate: 53 bpm RR Interval: 0 msec [place] Interval: 234 msec QRS Duration: 120 msec QT Interval: 452 msec QTC Interval: 424 msec P-R-T [place]: 85 - -63 - 61 degrees Sinus bradycardia with 1st degree AV block with premature atrial complexes Left axis deviation Possible Anterior infarct , age undetermined Abnormal ECG Electronically Signed By: Pepe Garcia [id number]
--- NOTE | 2017-03-31 10:38 | RADRPT ---
Vent Rate: 59 bpm RR Interval: 0 msec [place] Interval: 210 msec QRS Duration: 126 msec QT Interval: 476 msec QTC Interval: 471 msec P-R-T [place]: 58 - -65 - 77 degrees Sinus bradycardia with sinus arrhythmia with 1st degree AV block Left axis deviation Nonspecific intraventricular block Cannot rule out Anteroseptal infarct , age undetermined Abnormal ECG Electronically Signed By: Pepe Garcia [id number]
[2017-03-31 10:53] LABS: CALCIUM 8.9 mg/dl (8.4-10.2); CREATININE 1.03 mg/dl (0.61-1.24); POTASSIUM 3.8 mmol/L (3.5-5.1)
--- NOTE | 2017-03-31 12:08 | CONS ---
Date/Time of Note Date/Time of Note DATE: 03/31/17 TIME: 12:02 Assessment/Plan Assessment/Plan Chief Complaint/Hosp Course IMP: 1.POD#1 s/p PTCA/stent x 1 to LAD x 1 to LCX 2.H/O Nstemi 3.HTN 4.cardiomyopathy 5. Dyslipidemia Recc: -tele -Contiue asa/brilinta and give scripts for meds -Continue BB/ACEI -Continue statin -Follow volume status closely -D/C planning with second part of staged procedure to be done april 20 Problems: Consultation Date/Type/Reason Admit Date/Time Mar 30, 2017 at 13:13 Initial Consult Date 03/30/2017 Type of Consultation: Cardiology Reason for Consultation s/p PTCA/stent Referring Provider: SINTIA GRUBER MD Exam/Review of Systems Vital Signs Vitals Vital Signs Date Time Temp Pulse Resp B/P Pulse Ox O2 Delivery O2 Flow Rate FiO2 03/31/17 11:07 98.1 57 19 136/63 98 03/30/17 19:00 Room Air Intake and Output 03/30/17 03/30/17 03/31/17 15:00 23:00 07:00 Intake Total 500 ml Balance 500 ml Exam Review of Systems: CONSTITUTIONAL: No fevers, chills. PULMONARY: No sob CARDIOVASCULAR: No chest pain/palpitations GASTROINTESTINAL: No nausea/vomiting. GENITOURINARY: No hematuria/dysuria. MUSCULOSKELETAL: No myagias/arthalgias. PSYCHIATRIC: The patient denies depression. NEUROLOGIC: No weakness Constitutional: alert Psych: no complaints Head: normocephalic ENMT: mucosa pink and moist Neck: jvd (8-9 cm water), supple Respiratory: clear to auscultation Cardiovascular: regular rate and rhythm Gastrointestinal: non-tender, soft Musculoskeletal: muscle tone (normal) Extremities: edema (none), other (R wrist withpalpable pulse. No sig ecchymosis or swelling) Results Result Diagram: 03/31/17 0920 03/31/17 0920 Results 24 hrs Laboratory Tests Test 03/31/17 09:20 White Blood Count 6.8 Red Blood Count 4.91 Hemoglobin 13.4 L Hematocrit 39.8 L Mean Corpuscular Volume 81.1 L Mean Corpuscular Hemoglobin 27.3 L Mean Corpuscular Hemoglobin Concent 33.7 Red Cell Distribution Width 14.7 H Platelet Count 162 Mean Platelet Volume 10.4 Neutrophils % 71.9 Lymphocytes % 15.3 Monocytes % 9.3 Eosinophils % 3.1 Basophils % 0.1 Nucleated Red Blood Cells % 0.0 Neutrophils # 4.9 Lymphocytes # 1.0 Monocytes # 0.6 Eosinophils # 0.2 Basophils # 0.0 Nucleated Red Blood Cells # 0.0 Sodium Level 134 L Potassium Level 3.8 Chloride Level 102 Carbon Dioxide Level 24 Anion Gap 12 Blood Urea Nitrogen 17 Creatinine 1.03 Glucose Level 147 Calcium Level 8.9 Medications Medications Current Medications Aspirin (Halfprin) 81 mg DAILY PO Last administered on 03/31/17 08:37; Admin Dose 81 MG; Start 03/31/17 at 09:00 Ticagrelor (Brilinta) 90 mg BID PO Last administered on 03/31/17 08:39; Admin Dose 90 MG; Start 03/30/17 at 21:00 Acetaminophen (Tylenol Tab) 650 mg Q4H PRN PO NON-CARDIAC PAIN LEVEL 1-3; Start 03/30/17 at 13:30 Oxycodone/ Acetaminophen (Percocet (5/ 325)) 1 tab Q4H PRN PO REPORTED NON- CARDIAC PAIN 4-7; Start 03/30/17 at 13:30 Morphine Sulfate (morphine) 1 mg Q1H PRN IV PAIN NOT RELIEVED BY OTHERS; Start 03/30/17 at 13:30 Al Hydrox/Mg Hydrox/Simethicone (Mag-Al Plus) 30 ml Q4H PRN PO GASTROINTESTINAL UPSET; Start 03/30/17 at 13:30 Ondansetron HCl (Zofran Inj) 4 mg Q4H PRN IV NAUSEA AND/OR VOMITING; Start at 13:30 Lorazepam (Ativan) 0.5 mg Q6H PRN IV ANXIETY; Start 03/30/17 at 18:00 Ondansetron HCl (Zofran Tab) 4 mg Q6H PRN PO NAUSEA AND/OR VOMITING; Start at 18:00 Acetaminophen/ Hydrocodone Bitart ([place] (5/325)) 1 tab Q6H PRN PO PAIN LEVEL 4 -6; Start 03/30/17 at 18:00 Docusate Sodium (Colace) 100 mg Q12H PRN PO CONSTIPATION; Start 03/30/17 at 18: 00 Magnesium Hydroxide (Milk Of Mag) 30 ml DAILY PRN PO CONSTIPATION; Start at 18:00 Famotidine (Pepcid) 20 mg Q12 PO Last administered on 03/31/17 08:37; Admin Dose 20 MG; Start 03/30/17 at 21:00 Benazepril HCl (Lotensin) 5 mg DAILY PO Last administered on 03/31/17 08:38; Admin Dose 5 MG; Start 03/31/17 at 09:00 Metoprolol Succinate (Toprol Xl) 25 mg DAILY PO Last administered on 03/31/17 08:37; Admin Dose 25 MG; Start 03/31/17 at 09:00 Acetylcysteine (Nac) 1,200 mg BID PO Last administered on 03/30/17 21:41; Admin Dose 1,200 MG; Start 03/30/17 at 21:00; Stop 04/02/17 at 20:59 Atorvastatin Calcium (Lipitor) 10 mg HS PO Last administered on 03/30/17 21:40 ; Admin Dose 10 MG; Start 03/30/17 at 21:00 Metoclopramide HCl (Reglan) 10 mg TID PO Last administered on 03/31/17 08:37; Admin Dose 10 MG; Start 03/30/17 at 17:48 Hydralazine HCl (Apresoline) 10 mg Q4H PRN IV ELEVATED BLOOD PRESSURE; Start at 22:30 KERLINE LOZADA Mar 31, 2017 12:08
== END 2017-03-31 13:24 | disposition home or self-care (01) ==
LOC: SDS 08:41 → TEL 13:13 → SDS 21:47
PROVIDERS: ADMIT Internal Medicine; ATTEND Internal Medicine
DX: I25.10 Atherosclerotic heart disease of native coronary artery without angina pectoris (principal); I42.8 Other cardiomyopathies; E78.5 Hyperlipidemia, unspecified; K21.0 Gastro-esophageal reflux disease with esophagitis; H90.5 Unspecified sensorineural hearing loss; E29.1 Testicular hypofunction; G47.30 Sleep apnea, unspecified; E66.9 Obesity, unspecified; Z68.30 Body mass index [BMI] 30.0-30.9, adult; Z71.3 Dietary counseling and surveillance; M54.30 Sciatica, unspecified side
CPT/HCPCS: 80048; 80061; 85025; 85610; 85730; 92943; 92944; 93005; 93458; C1725; C1769; C1874; C1887; C9600; G0378; J0583; J1644; J2250; J3010; Q9967

== ENCOUNTER 2017-04-15 06:44 | Observation (INO) | payer MEDICARE, OTHER ==
[~2017-04-15] VITALS: Ht 188 cm; Wt 109.5 kg
[2017-04-15] VITALS (33 sets, daily range): BP systolic 98–174; BP diastolic 57–106; PULSE 59–80; RESP 14–33; Ht 188 cm; Wt 109.5 kg
[~2017-04-15 06:44] MED LIST changes: +DIAZEPAM 5 MG TAB PO PRN; +DIPHENHYDRAMINE 50 MG CAP PO PRN; +FAMOTIDINE 20 MG TAB PO PRN; +TICA90TA PO
[2017-04-15] MEDS ORDERED: VALS40TA2 PO (07:17)
[2017-04-15 07:51] LABS: ADD SCAN DIFF NO
[2017-04-15 07:55] LABS: BASOPHILS % 0.5 % (0.0-2.0); EOSINOPHILS # 0.3 10^3/ul (0.0-0.5); EOSINOPHILS % 3.9 % (0.0-7.0); HEMATOCRIT 42.1 % (42.0-52.0); HEMOGLOBIN 13.7 g/dl (14.0-18.0); LYMPHOCYTES # 1.5 10^3/ul (0.8-2.9); MEAN CORPUSCULAR HEMOGLOBIN 26.7 pg (29.0-33.0); MEAN CORPUSCULAR HGB CONC 32.5 g/dl (32.0-37.0); MEAN CORPUSCULAR VOLUME 82.1 fl (82.0-101.0); MEAN PLATELET VOLUME 10.1 fl (7.4-10.4); MONOCYTE # 0.8 10^3/ul (0.3-0.9); MONOCYTES % 10.7 % (0.0-11.0); NEUTROPHIL # 4.9 10^3/ul (1.6-7.5); NEUTROPHILS % 64.6 % (39.0-77.0); PLATELET COUNT 220 10^3/UL (140-415); RED BLOOD COUNT 5.13 10^6/ul (4.70-6.10); RED CELL DISTRIBUTION WIDTH 15.1 % (11.5-14.5); WHITE BLOOD COUNT 7.5 10^3/ul (4.8-10.8)
[2017-04-15 08:13] LABS: INR 1.04; PROTIME 13.6 Sec (12.2-14.2); PT RATIO 1.1
[2017-04-15 08:14] LABS: PARTIAL THROMBOPLASTIN TIME 28.3 Sec (25.0-35.0)
[2017-04-15 08:15] LABS: CHOL/HDL RATIO 4.6 RATIO
[2017-04-15 08:19] LABS: CALCIUM 9.6 mg/dl (8.4-10.2); CREATININE 0.97 mg/dl (0.61-1.24); POTASSIUM 3.6 mmol/L (3.5-5.1)
[2017-04-15] MEDS ORDERED: BIVALIRUDIN 250MG /NS 50 ML 50 ML IVPB ONE ×2 (08:57→10:14)
[2017-04-15] MEDS ORDERED: FENTAnyl 50 MCG/ML VIAL ONE (08:57)
[2017-04-15] MEDS ORDERED: LIDOCAINE 1% (MDV) 20 ML INJ ONE (08:57)
[2017-04-15] MEDS ORDERED: IODIXANOL LOCM 100 ML BTL ONE ×2 (08:57→11:47)
[2017-04-15] MEDS ORDERED: IOHEXOL 350MG/ML 50 ML BTL ONE (08:57)
[2017-04-15] MEDS ORDERED: MIDAZOLAM 1 MG/ML 2 ML INJ ONE (08:58)
[2017-04-15] MEDS ORDERED: VERAPAMIL 5 MG INJ ONE ×3 (09:03)
[2017-04-15] MEDS ORDERED: NITROGLYCERIN (IC) 100 MCG/ML INJ ONE (09:03)
[2017-04-15] MEDS ORDERED: CLOPIDOGREL 300 MG TAB ONE (11:02)
[2017-04-15] MEDS ORDERED: ASPIRIN 325 MG TAB ONE (11:02)
[2017-04-15] MEDS ORDERED: SOD CHLORIDE 0.9% 1,000 ML IV SCH (11:24)
[2017-04-15] MEDS ORDERED: BIVALIRUDIN 250MG /NS 50 ML 50 ML IVPB SCH (11:24)
[2017-04-15] MEDS ORDERED: ACETAMINOPHEN 325 MG TAB PO PRN (11:30)
[2017-04-15] MEDS ORDERED: AL HYDROX/MG HYDROX/SIMETH 30 ML CUP PO PRN (11:30)
[2017-04-15] MEDS ORDERED: OXYCODONE/ACETAMINOPHEN (5/325) TAB PO PRN (11:30)
[2017-04-15] MEDS ORDERED: ONDANSETRON 4 MG INJ IV PRN (11:30)
--- NOTE | 2017-04-15 14:04 | RADRPT ---
Vent Rate: 66 bpm RR Interval: 0 msec [place] Interval: 220 msec QRS Duration: 118 msec QT Interval: 410 msec QTC Interval: 429 msec P-R-T [place]: 67 - -64 - 84 degrees Sinus rhythm with 1st degree AV block with premature atrial complexes Left axis deviation Anteroseptal infarct , age undetermined Abnormal ECG Electronically Signed By: Parmjit Nath [id number]
[2017-04-15] MEDS ORDERED: ZOLPIDEM 5 MG TAB PO PRN ×2 (16:30→20:00)
[2017-04-15] MEDS ORDERED: HYDROCODONE/APAP (5/325) TAB PO PRN (16:30)
[2017-04-15] MEDS ORDERED: ONDANSETRON 4 MG TAB PO PRN (16:30)
[2017-04-15] MEDS ORDERED: DOCUSATE SODIUM 100 MG CAP PO PRN (16:30)
[2017-04-15] MEDS ORDERED: MAGNESIUM HYDROXIDE 30ML CUP PO PRN (16:30)
[2017-04-15] MEDS ORDERED: NACL 0.9% 3 ML SYG IV SCH (16:30)
--- NOTE | 2017-04-15 16:36 | HP ---
Date/Time of Note Date/Time of Note DATE: 04/15/17 TIME: 16:29 Assessment/Plan VTE Prophylaxis VTE Prophylaxis Intervention: SCD's Lines/Catheters IV Catheter Type (from Nrs): Peripheral IV Assessment/Plan Problems: (1) Hyperlipidemia Status: Chronic Comment: He is on statin therapy and this will be continued immediately post intervention Qualifiers: Hyperlipidemia type: mixed hyperlipidemia Qualified Code: E78.2 - Mixed hyperlipidemia (2) Meniere disease Status: Chronic Comment: Noted and stable. No medical intervention Qualifiers: Laterality: bilateral Qualified Code: H81.03 - Meniere disease, bilateral (3) Gastro-esophageal reflux disease without esophagitis Status: Chronic Comment: Stable on antireflux medication (4) Sensorineural hearing loss Status: Chronic Comment: Noted no medical intervention needed Qualifiers: Laterality: bilateral Qualified Code: H90.3 - Sensorineural hearing loss ( SNHL) of both ears (5) Testicular hypofunction Status: Chronic Comment: Noted at this time not receiving treatments (6) Obstructive sleep apnea Status: Chronic Comment: Nocturnal BiPAP as indicated (7) 3-vessel coronary artery disease Status: Chronic Comment: Status post angioplasty and stenting of the last diseased artery. As per cardiology. He did not tolerate the Brilinta I am told by the patient until he will be on aspirin Plavix as his dual antiplatelet therapy (8) Systolic dysfunction Status: Acute Comment: Beta-blockade and CEASAR inhibitor as tolerated HPI/ROS Admit Date/Time Admit Date/Time Apr 15, 2017 at 11:24 Hx of Present Illness 77-year-old gentleman with known coronary artery disease. He had triple-vessel disease and was offered open heart bypass surgery. The patient declined this in favor of sequential percutaneous angioplasty. He has recently had 2 vessels done is now being brought in for the final angioplasty as directed by cardiology Dr. Perera. At this time he is post therapy and in the ICU. ROS Constitutional: no complaints (No fevers chills or sweats) Eyes: no complaints ENT: no complaints Respiratory: no complaints (No chest pain or shortness of breath no cough no wheezing) Cardiovascular: no complaints (No symptom) Gastrointestinal: no complaints Genitourinary: no complaints Musculoskeletal: no complaints Skin: no complaints Neurologic: no complaints (He reports his symptoms of tic douloureux are significantly reduced recently) Endocrine: no complaints Lymphatic: no complaints PMH/Family/Social Past Medical History Tic douloureux; Mnire's disease; obstructive sleep apnea; gastroesophageal reflux disease with esophagitis; osteoarthrosis/DJD Medical History: coronary artery disease, GERD, high cholesterol, hypertension Past Surgical History Status post placement of an inflatable penile prosthesis; 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; status post urethroplasty Past Surgical Hx: noncontributory, other Family History Significant Family History: no pertinent family hx Social History Alcohol Use: rarely Smoking Status: Former smoker Drug Use: none Exam/Review of Systems Vital Signs Vitals Vital Signs Date Time Temp Pulse Resp B/P Pulse Ox O2 Delivery O2 Flow Rate FiO2 04/15/17 16:00 62 04/15/17 15:45 24 137/73 98 Room Air 04/15/17 12:00 98.0 Exam Constitutional: alert, oriented Neck: non-tender, supple Respiratory: clear to auscultation, normal air movement Cardiovascular: nl pulses, regular rate and rhythm Gastrointestinal: nl liver, spleen, non-tender, soft Extremities: normal pulses Labs Result Diagram: 04/15/1730 04/15/17 0730 Medications Medications Current Medications Diazepam (Valium) 5 mg OC PRN PO DIGITIZER OPERATOR; Start 04/15/17 at 06:00; Stop at 20:00 Famotidine (Pepcid) 20 mg OC PRN PO DIGITIZER OPERATOR; Start 04/15/17 at 06:00; Stop at 20:00 Diphenhydramine HCl (Benadryl) 50 mg OC PRN PO DIGITIZER OPERATOR; Start 04/15/17 at 06: 00; Stop 04/15/17 at 20:00 Miscellaneous Information (* Miscellaneous Pharmacy Order) Hold all Metformin ... ONCE XX ; Start 04/15/17 at 11:30; Stop 04/17/17 at 11:29 Aspirin (Ecotrin) 325 mg DAILY PO ; Start 04/16/17 at 09:00 Clopidogrel Bisulfate (plaVIX) 75 mg DAILY PO ; Start 04/16/17 at 09:00 Acetaminophen (Tylenol Tab) 650 mg Q4H PRN PO NON-CARDIAC PAIN LEVEL 1-3; Start 04/15/17 at 11:30 Oxycodone/ Acetaminophen (Percocet (5/ 325)) 1 tab Q4H PRN PO REPORTED NON- CARDIAC PAIN 4-7; Start 04/15/17 at 11:30 Al Hydrox/Mg Hydrox/Simethicone (Mag-Al Plus) 30 ml Q4H PRN PO GASTROINTESTINAL UPSET; Start 04/15/17 at 11:30 Ondansetron HCl 4 mg 4 mg Q4H PRN IV NAUSEA AND/OR VOMITING; Start 04/15/17 at 11:30 Sodium Chloride (NS) 1,000 ml @ 75 mls/hr [id number] IV Last administered on 04/15t 12:01; Admin Dose 75 MLS/HR; Start 04/15/17 at 11:24; Stop 04/16/17 at 00: 43 SINTIA GRUBER MD Apr 15, 2017 16:35
[2017-04-15] MEDS ORDERED: METOCLOPRAMIDE 10 MG TAB PO SCH (17:20)
[2017-04-15] MEDS ORDERED: METOCLOPRAMIDE 10 MG TAB PO ONE (17:30)
[2017-04-15] MEDS: METOCLOPRAMIDE 10 MG TAB PO SCH (20:41)
[2017-04-15] MEDS ORDERED: ACETYLCYSTEINE 600 MG CAP PO SCH (21:00)
[2017-04-15] MEDS ORDERED: ATORVASTATIN 10 MG TAB PO SCH (21:00)
[2017-04-16] VITALS (9 sets, daily range): BP systolic 140–145; BP diastolic 65–67; PULSE 65–85; RESP 11–29
[2017-04-16] MEDS ORDERED: PANTOPRAZOLE (EC) 40 MG TAB PO SCH (06:00)
[2017-04-16] MEDS ORDERED: METHYLPREDNISOLONE 40 MG INJ IV ONE (06:30)
--- NOTE | 2017-04-16 08:27 | DS ---
Date/Time of Note Date/Time of Note DATE: 04/16/17 TIME: 08:20 Discharge Summary Admission/Discharge Info Admit Date/Time Apr 15, 2017 at 11:24 Discharge Date/Time April 16, 2017 Discharge Diagnosis Coronary artery disease status post PCI with stenting; hypertension; hyperlipidemia; obstructive sleep apnea; systolic dysfunction; Mnire's disease ; gastroesophageal reflux disease; history of Phuong's gangrene Patient Condition: Fair Consults Internal medicine-Dr. Rodriguez Procedures Coronary angiography with angioplasty and stenting (operative report is not yet in the computer system) Hx of Present Illness 77-year-old gentleman with known coronary artery disease. He had triple-vessel disease and was offered open heart bypass surgery. The patient declined this in favor of sequential percutaneous angioplasty. He has recently had 2 vessels done is now being brought in for the final angioplasty as directed by cardiology Dr. Perera. At this time he is post therapy and in the ICU. Hospital Course 77-year-old male status post coronary angiography with PCI and stenting. The operative report is not yet in the computer record. At this time he is postprocedure and doing well. He is not having any cardiac or neurologic symptoms. He is now one day postop and was transferred to telemetry. He is stable. He has no known communicable diseases he is not hazard to himself or others his rehabilitation potential is good. He will be going out on dual antiplatelet therapy. Using aspirin and clopidogrel Home Meds Reported Medications Valsartan* (Diovan*) 40 Mg Tablet, 40 MG PO DAILY, TAB 04/15/17 Aspirin* (Aspirin*) 325 Mg Tablet, 325 MG PO DAILY, TAB 03/24/17 Simvastatin (Simvastatin) 10 Mg Tablet, 10 MG PO QHS, #30 TAB 03/24/17 Benazepril Hcl* (Benazepril Hcl*) 5 Mg Tablet, 5 MG PO DAILY, #30 TAB 03/24/17 Metoprolol Succinate* (Toprol XL*) 25 Mg Tab.sr.24h, 25 MG PO DAILY, #30 TAB 03/24/17 Metoclopramide Hcl* (Metoclopramide Hcl*) 10 Mg Tablet, 10 MG PO TID, TAB 01/13/17 Omeprazole* (Omeprazole*) 20 Mg Capsule.dr, 20 MG PO DAILY, #30 CAP 01/13/17 Discontinued Scripts Ticagrelor* (Brilinta*) 90 Mg Tablet, 90 MG PO BID for 30 Days, TAB 1 Refill Prov:MARTIN RODRIGUEZ MD 03/31/17 Follow-up Plan Cardiology 2 weeks; Dr. Perera/internal medicine [address] Rodriguez Primary Care Provider Martin Rodriguez MD Time spent on discharge: > 30 minutes Pending Labs Microbiology Date/Time Source Procedure Growth Status 04/15/17 13:00 Nares MRSA Screen - Preliminary Screening in process Resulted MARTIN RODRIGUEZ MD Apr 16, 2017 08:27
--- NOTE | 2017-04-16 08:28 | PDOCDIS ---
Discharge Instructions DIAGNOSIS Discharge Diagnosis Coronary artery disease status post PCI with stenting; hypertension; hyperlipidemia; obstructive sleep apnea; systolic dysfunction; Mnire's disease ; gastroesophageal reflux disease; history of Phuong's gangrene CONDITION Patient Condition: Fair HOME CARE INSTRUCTIONS: Special Diet: LOW FAT/CHOL ACTIVITY: Activity Restrictions: Slowly Increase Activity Do not operate Machinery Do not operate Power Tool FOLLOW UP/APPOINTMENTS Follow-up Plan Cardiology-Dr. Perera in 2 weeks; internal medicine Dr. Rodriguez in 4 weeks SCHOOL/WORK RELEASE May return to School/Work with: With Restrictions SINTIA RODRIGUEZ MD Apr 16, 2017 08:28
[2017-04-16] MEDS ORDERED: CLOP75TA28 PO (08:30)
[2017-04-16 08:54] LABS: ADD SCAN DIFF NO
[2017-04-16 08:56] LABS: BASOPHILS % 0.1 % (0.0-2.0); EOSINOPHILS # 0.2 10^3/ul (0.0-0.5); HEMATOCRIT 44.1 % (42.0-52.0); HEMOGLOBIN 14.2 g/dl (14.0-18.0); LYMPHOCYTES # 0.6 10^3/ul (0.8-2.9); LYMPHOCYTES % 7.8 % (15.0-51.0); MEAN CORPUSCULAR HEMOGLOBIN 26.4 pg (29.0-33.0); MEAN CORPUSCULAR HGB CONC 32.2 g/dl (32.0-37.0); MEAN CORPUSCULAR VOLUME 82.1 fl (82.0-101.0); MEAN PLATELET VOLUME 9.9 fl (7.4-10.4); MONOCYTE # 0.4 10^3/ul (0.3-0.9); MONOCYTES % 4.8 % (0.0-11.0); NEUTROPHIL # 6.8 10^3/ul (1.6-7.5); NEUTROPHILS % 83.9 % (39.0-77.0); PLATELET COUNT 196 10^3/UL (140-415); RED BLOOD COUNT 5.37 10^6/ul (4.70-6.10); RED CELL DISTRIBUTION WIDTH 15.9 % (11.5-14.5); WHITE BLOOD COUNT 8.1 10^3/ul (4.8-10.8)
[2017-04-16] MEDS ORDERED: CLOPIDOGREL 75 MG TAB PO SCH (09:00)
[2017-04-16] MEDS ORDERED: ASPIRIN (EC) 325 MG TAB PO SCH (09:00)
[2017-04-16] MEDS ORDERED: ASPIRIN 325 MG TAB PO SCH (09:00)
[2017-04-16] MEDS ORDERED: VALSARTAN 80 MG TAB PO SCH (09:00)
[2017-04-16 09:16] LABS: CALCIUM 8.8 mg/dl (8.4-10.2); CHOL/HDL RATIO 4.9 RATIO; CREATININE 1.06 mg/dl (0.61-1.24); POTASSIUM 3.9 mmol/L (3.5-5.1)
[2017-04-16] MEDS: METOCLOPRAMIDE 10 MG TAB PO SCH (09:25)
[2017-04-16 09:29] LABS: CK-MB 10.3 ng/ml (0.0-2.4)
[2017-04-16 09:32] LABS: TROPONIN-I 2.76 ng/ml (0.00-0.12)
[2017-04-16 13:05] LABS: CK-MB 8.6 ng/ml (0.0-2.4); TROPONIN-I 2.06 ng/ml (0.00-0.12)
--- NOTE | 2017-04-16 13:27 | CONS ---
Date/Time of Note Date/Time of Note DATE: 04/16/17 TIME: 13:11 Assessment/Plan Assessment/Plan Chief Complaint/Hosp Course IMP: 1.cad s/p PTCA stent x 3 to RCA/PDA/PLB- no chest pain/sob/ambulating with no problems. Troponin/Ck-MB downtrending apprropriately post-procedure 2.cardiomyopathyh-EF 45-50 3.HTN 4.H/O Nstemi 5.HL 6. GERD Recc: -Continue asa 325 mg/plavix 75 mg daily -Resume BB/ACEI as outpatient -Continue statin therapy -d/c planning today with outpatient f/u 2 weeks Problems: Consultation Date/Type/Reason Admit Date/Time Apr 15, 2017 at 11:24 Initial Consult Date 04/16/17 Type of Consultation: cardiology Reason for Consultation cad/nstemi Referring Provider: SINTIA GRUBER MD Exam/Review of Systems Vital Signs Vitals Vital Signs Date Time Temp Pulse Resp B/P Pulse Ox O2 Delivery O2 Flow Rate FiO2 04/16/17 12:19 98.0 98 18 145/65 98 04/16/17 03:00 Room Air Intake and Output 04/15/17 04/15/17 04/16/17 15:00 23:00 07:00 Intake Total 225 ml 1000 ml 275 ml Output Total 0 ml 200 ml Balance 225 ml 800 ml 275 ml Exam Review of Systems: CONSTITUTIONAL: No fevers, chills. PULMONARY: No sob CARDIOVASCULAR: No chest pain/palpitations GASTROINTESTINAL: No nausea/vomiting. GENITOURINARY: No hematuria/dysuria. MUSCULOSKELETAL: No myagias/arthalgias. PSYCHIATRIC: The patient denies depression. NEUROLOGIC: No weakness Constitutional: alert, oriented Psych: no complaints Head: normocephalic ENMT: mucosa pink and moist Neck: jvd, supple Respiratory: diminished breath sounds Cardiovascular: regular rate and rhythm Gastrointestinal: non-tender, soft Musculoskeletal: muscle tone (normal) Extremities: edema (none) Neurological: other (No focal deficits) Results Result Diagram: 04/16/17 0828 04/16/17 0828 Results 24 hrs Laboratory Tests Test 04/16/17 08:28 04/16/17 11:49 White Blood Count 8.1 Red Blood Count 5.37 Hemoglobin 14.2 Hematocrit 44.1 Mean Corpuscular Volume 82.1 Mean Corpuscular Hemoglobin 26.4 L Mean Corpuscular Hemoglobin Concent 32.2 Red Cell Distribution Width 15.9 H Platelet Count 196 Mean Platelet Volume 9.9 Neutrophils % 83.9 H Lymphocytes % 7.8 L Monocytes % 4.8 Eosinophils % 3.0 Basophils % 0.1 Nucleated Red Blood Cells % 0.0 Neutrophils # 6.8 Lymphocytes # 0.6 L Monocytes # 0.4 Eosinophils # 0.2 Basophils # 0.0 Nucleated Red Blood Cells # 0.0 Sodium Level 138 Potassium Level 3.9 Chloride Level 102 Carbon Dioxide Level 26 Anion Gap 14 # Blood Urea Nitrogen 16 Creatinine 1.06 Glucose Level 145 Calcium Level 8.8 Creatine Kinase 135 100 Creatine Kinase Index 7.6 8.6 Creatinine Kinase MB (Mass) 10.30 H 8.60 H Troponin I 2.760 *H 2.060 *H Triglycerides Level 203 H Cholesterol Level 147 LDL Cholesterol, Calculated 76 HDL Cholesterol 30 L Cholesterol/HDL Ratio 4.9 Medications Medications Current Medications Miscellaneous Information (* Miscellaneous Pharmacy Order) Hold all Metformin ... ONCE XX ; Start 04/15/17 at 11:30; Stop 04/17/17 at 11:29 Aspirin (Ecotrin) 325 mg DAILY PO Last administered on 04/16/17 09:25; Admin Dose 325 MG; Start 04/16/17 at 09:00 Clopidogrel Bisulfate (plaVIX) 75 mg DAILY PO Last administered on 04/16/17 09 :25; Admin Dose 75 MG; Start 04/16/17 at 09:00 Acetaminophen (Tylenol Tab) 650 mg Q4H PRN PO NON-CARDIAC PAIN LEVEL 1-3; Start 04/15/17 at 11:30 Oxycodone/ Acetaminophen (Percocet (5/ 325)) 1 tab Q4H PRN PO REPORTED NON- CARDIAC PAIN 4-7; Start 04/15/17 at 11:30 Al Hydrox/Mg Hydrox/Simethicone (Mag-Al Plus) 30 ml Q4H PRN PO GASTROINTESTINAL UPSET; Start 04/15/17 at 11:30 Ondansetron HCl (Zofran Inj) 4 mg Q4H PRN IV NAUSEA AND/OR VOMITING; Start at 11:30 Ondansetron HCl (Zofran Tab) 4 mg Q6H PRN PO NAUSEA AND/OR VOMITING; Start at 16:30 Acetaminophen/ Hydrocodone Bitart ([place] (5/325)) 1 tab Q6H PRN PO MODERATE PAIN LEVEL 4-6; Start 04/15/17 at 16:30 Docusate Sodium (Colace) 100 mg Q12H PRN PO CONSTIPATION; Start 04/15/17 at 16: 30 Magnesium Hydroxide (Milk Of Mag) 30 ml DAILY PRN PO CONSTIPATION; Start at 16:30 Acetylcysteine (Nac) 1,200 mg BID PO Last administered on 04/15/17 20:43; Admin Dose 1,200 MG; Start 04/15/17 at 21:00; Stop 04/17/17 at 20:59 Metoclopramide HCl (Reglan) 10 mg TID PO Last administered on 04/16/17 09:25; Admin Dose 10 MG; Start 04/15/17 at 21:00 Valsartan (Diovan) 40 mg DAILY PO Last administered on 04/16/17 09:26; Admin Dose 40 MG; Start 04/16/17 at 09:00 Pantoprazole (Protonix Tab) 40 mg DAILY@06 PO Last administered on 04/16/17 06 :26; Admin Dose 40 MG; Start 04/16/17 at 06:00 Zolpidem Tartrate (Ambien) 10 mg QHS PRN PO SLEEP Last administered on 20:43; Admin Dose 10 MG; Start 04/15/17 at 20:00 Simvastatin (Zocor) 10 mg DAILY@21 PO ; Start 04/16/17 at 21:00 KERLINE LOZADA Apr 16, 2017 13:25
[2017-04-16] MEDS ORDERED: SIMVASTATIN 10 MG TAB PO SCH (21:00)
--- NOTE | 2017-04-19 13:47 | RADRPT ---
Vent Rate: 79 bpm RR Interval: 0 msec IA Interval: 200 msec QRS Duration: 116 msec QT Interval: 396 msec QTC Interval: 454 msec P-R-T [place]: 65 - -44 - 72 degrees Normal sinus rhythm with sinus arrhythmia Left axis deviation Anterolateral infarct , age undetermined Abnormal ECG Electronically Signed By: Parmjit Nath [id number]
--- NOTE | 2017-04-23 11:50 | CARRPT ---
DATE OF PROCEDURE: 04/15/2017 TYPE OF PROCEDURE: 1. Left heart catheterization. 2. Coronary angiography. 3. Percutaneous transluminal coronary angioplasty with placement of drug-eluting stents x3 to posterior descending artery, mid right, and proximal right coronary artery, with a 2.25 x 60 mm to the posterior descending artery, 2.5 x 12 mm to the mid right coronary artery, and 3.0 x 60 mm to the proximal right coronary artery. 4. Percutaneous transluminal coronary angioplasty alone to a small posterolateral branch. 5. 90 minutes of conscious sedation. ATTENDING PHYSICIAN: Dr. Israel Perera. REFERRING PHYSICIAN: Dr. Martin Rodriguez. INDICATION: Obstructive coronary artery disease, non- ST myocardial infarction. ANESTHESIA: Conscious with local. BRIEF HISTORY: Mr. Cole is a 77-year-old male with history of hypertension and dyslipidemia, who had recently undergone stage 2 of the LAD, after refusing coronary artery bypass graft surgery after sustaining a [id number] myocardial infarction, who comes back today to undergo stage 3 of the right coronary artery. PROCEDURE: After informed consent was obtained, the patient was brought to the [facility] where his right radial wrist prepped and draped in usual sterile fashion. 2 percent lidocaine was infiltrated to the radial area and after he achieved adequate anesthesia, using a modified Seldinger technique, the radial artery was cannulated and a 6- Moroccan arterial sheath was placed. A 6-Moroccan JR4 guide was used to catheterize the right coronary artery ostium. A 0.014 guidewire was passed distal in the right coronary artery. A second guidewire was passed distal into the posterolateral branch. The patient's posterolateral branch had high-grade stenosis treated with a 2.0 x 12 balloon up to 14-16 atmospheres x 2-3. The balloon was removed. Follow-up angiogram obtained with excellent results for the supplemental angioplasty. Subsequently at this time, with a second wire across the lesion in the PDA, we used a 2.0 balloon to perform predilation along this lesion. Subsequently removed, and then we attempted to place a stent across this lesion unsuccessfully. Subsequently, we came back and did additional balloon inflation with a 2.0 x 12 balloon, and again, attempted to pass the stent unsuccessfully. At this time, we added a Weight Guesser 50 guidewire and we pulled the Weight Guesser 50 back and across the PDA for an additional and we were still unable to pass the stent. Subsequently, the Resolute was changed for a Synergy, 2.25 x 6 mm drug-eluting stent; again, attempted to pass across the lesion unsuccessfully. Subsequently at this time, a Mailman heavy support wire was added and we were able to pass the stent into the area of the lesion. The Mailman was pulled back and the stent was deployed at 14 atmospheres, postdilated with the stent sheath at 16 atmospheres. Subsequently at this time, the Mailman was left at the very proximal portion of the vessel and we were able to stent the mid lesion with a 2.5 x 12 mm drug-eluting stent deployed at 14 atmospheres and postdilated with the stent sheath to 18 atmospheres. Subsequently, the stent sheath was removed and a most proximal lesion, eccentric, was then stented with a 3.0 x 16 mm drug-eluting stent deployed at 14 atmospheres, postdilated with the stent sheath at 16 atmospheres, stent sheath was removed. Follow-up angiogram was obtained, which revealed excellent deployment of the stent. Subsequently, the patient was given 200 mcg of IV nitroglycerin and follow-up angiogram was obtained revealing excellent result of deployment of all 3 stents. SHANIA-3 flow throughout the vessel and no signs of complications including perforation or dissection. Subsequently at this time, patient's interventional guidewires and guide were removed. Patient's sheath was removed. TR band was applied. This completed the procedure. There were no complications. FINDINGS: Coronary angiography: Right coronary artery: Patient had a 95 percent posterolateral branch stenosis and a diffuse 90 percent PDA stenosis with some calcification. In the mid right coronary artery, there was an eccentric-appearing lesion of approximately 80 percent in the proximal portion of the right coronary artery. There was another eccentric lesion, approximately 80 percent placement in all 3 places. There was no residual stenosis. SHANIA-3 flow throughout the vessel. No signs of complication including perforation or dissection. Subsequently in the patient's posterolateral branch prior to PTCA, there was a 95 percent stenosis. Post PTCA alone, there was a 10 percent to 20 percent stenosis. SHANIA-3 flow throughout and no signs of complication including perforation or dissection. TOTAL FLOW TIME: 33 minutes. TOTAL CONTRAST: 240 cc. IMPRESSION: Obstructive coronary artery disease involving multiple places in the patient's right coronary artery, status post successful percutaneous transluminal coronary angioplasty and stent placement x3 to posterior descending artery, mid and proximal right coronary artery with drug-eluting stents and percutaneous transluminal coronary angioplasty alone to posterolateral branch. RECOMMENDATIONS: 1. Would maintain the patient on Plavix 75 mg 1 tab p.o. daily indefinitely. 2. Aspirin 325 mg 1 tab p.o. daily indefinitely. 3. Maximize medical management. 4. Aggressive risk factor reduction. 5. Patient will be admitted to ICU for postoperative observation, team management assessments with probable discharge the following day. Dictated By: Rainer Jarrett /thi/shonna /Document#: [id number] CC: Martin Rodriguez MD;*[facility]*
== END 2017-04-16 14:22 | disposition home or self-care (01) ==
LOC: SDS 06:44 → ICU 11:24 → MS4 04-16 03:35
PROVIDERS: ADMIT Internal Medicine; ATTEND Internal Medicine
DX: I25.10 Atherosclerotic heart disease of native coronary artery without angina pectoris (principal); I42.9 Cardiomyopathy, unspecified; I10 Essential (primary) hypertension; E78.5 Hyperlipidemia, unspecified; G47.33 Obstructive sleep apnea (adult) (pediatric); H81.09 Meniere's disease, unspecified ear; K21.9 Gastro-esophageal reflux disease without esophagitis; H81.03 Meniere's disease, bilateral; H90.3 Sensorineural hearing loss, bilateral; E29.1 Testicular hypofunction; Z79.82 Long term (current) use of aspirin
CPT/HCPCS: 80048; 80061; 82550; 82553; 84484; 85025; 85610; 85730; 87081; 93005; C1725; C1769; C1874; C1876; C1887; C9600; G0378; J0583; J1644; J2250; J2920; J3010; Q9967; 99217

== ENCOUNTER → 2017-05-18 | Outpatient (CLI) | payer MEDICARE, OTHER ==
[~2017-05-18] MED LIST changes: +CLOP75TA28 PO; -DIAZEPAM 5 MG TAB PO PRN; -DIPHENHYDRAMINE 50 MG CAP PO PRN; -FAMOTIDINE 20 MG TAB PO PRN; -TICA90TA PO; +VALS40TA2 PO
--- NOTE | 2017-05-19 10:21 | HKNOTE ---
DATE OF SERVICE: 05/18/2017 MAIN COMPLAINT: Patient continues to complain of pain in his right knee. HISTORY OF MAIN COMPLAINT: The revision surgery on , did not give him the amount of relief that he expected. In fact, he does not think the operation gave him any improvement at all. He continues to have pain. He now describes his pain as a "burning sensation" over the anterior aspect of the right knee extending for about [address] around the patella. He also has to walk up and down stairs 1 at a time. PHYSICAL EXAMINATION: VITAL SIGNS: His temperature is normal. KNEES: Right knee has a full range of motion without pain. The ligaments are all intact and have an appropriate ligamentous tension in (not loose). The knee has a full range of motion. IMAGING: X-ray of the knee obtained today shows a perfect knee replacement. MANAGEMENT: The patient was advised that there is nothing else that I can do for him. The knee replacement implant is perfect. The ligaments are now stable. The description of a "burning pain" suggests a neurological problem. The patient is being referred to Dr. Giancarlo Alatorre for pain management. Dictated By: Sam Khoury MD /thi/shonna /Document#: [id number]
--- NOTE | 2017-05-19 10:58 | RADRPT ---
PROCEDURE: Right knee x-ray CLINICAL INDICATION: PAIN TECHNIQUE: AP, lateral, and sunrise views of the knee were obtained. COMPARISON: Plain radiographs of the right knee from 02/24/2017 FINDINGS: No acute fracture or dislocation is seen. There is decreased osseous mineralization. A total right knee prosthesis is again noted in near anatomic alignment without evidence of hardware loosening. There is no joint effusion. There is no significant soft tissue swelling. IMPRESSION: Redemonstration of a total right knee prosthesis in near anatomic alignment. Decreased osseous mineralization. RPTAT: EE Physician Luis Date Time Electronically viewed and signed by Physician Luis on 05/19/2017 08:25 /
== END | disposition home or self-care (01) ==
LOC: HKI 13:18
DX: M25.561 Pain in right knee (principal); Z96.651 Presence of right artificial knee joint
CPT/HCPCS: 73562; G0463

== ENCOUNTER → 2017-10-31 | Outpatient (CLI) | END | disposition home or self-care (01) ==

== ENCOUNTER → 2018-04-10 | Outpatient (CLI) | END | disposition home or self-care (01) ==

== ENCOUNTER 2018-04-27 08:48 | Day surgery (SDC) | END 2018-04-27 11:35 | disposition home or self-care (01) ==

== ENCOUNTER 2018-07-11 06:09 | Emergency (ER) | END 2018-07-11 09:57 | disposition home or self-care (01) ==